=== PATIENT | female | born 1945 | race Caucasian/White ===

== ENCOUNTER 2016-10-17 11:22 | Inpatient (IN) | payer MEDICARE, MEDICAID ==
[~2016-10-17] VITALS: Ht 160 cm; Wt 82.5 kg
[2016-10-17] MEDS: NICOTINE 21MG/24HR 1 EA TRANSDERMAL TD SCH (09:00)
[~2016-10-17 11:22] MED LIST: ALBU83IN INH; ASPI81TA85 PO; BISO5TAB2 PO; CALCCHW19 PO; DOCU100T8 PO; EFFE150C; ESTR1TAB; FLEXERIL; KLON1TAB PO; LIPI10TA PO; LISI10TA4; MULTLIQ7 PO; NORT50CA PO; OMEP40CA2 PO; POTA10CA2; PROBCAP4 PO; PROV2.5T; SERO50TA PO; SYNT137T PO; TRAZ50TA; TYLE650T30 PO; VENL25TA; VITA500T53 PO; ZYPR5TAB
[2016-10-17 12:26] LABS: MEAN CORPUSCULAR HEMOGLOBIN 31.1 pg (27.0-33.0); MEAN CORPUSCULAR HGB CONC 32.2 g/dl (32.0-36.5); MEAN CORPUSCULAR VOLUME 96.6 fl (80.0-96.0); RED CELL DISTRIBUTION WIDTH 15.5 % (11.5-14.5); WHITE BLOOD COUNT 13.6 K/mm3 (4.0-10.0)
[2016-10-17 12:56] LABS: ALBUMIN 3.7 GM/DL (3.2-5.2); ALBUMIN/GLOBULIN RATIO 1.09 (1.00-1.93); ALKALINE PHOSPHATASE 96 U/L (45-117); ALT/SGPT 50 U/L (12-78); ANION GAP 11 MEQ/L (8-16); AST/SGOT 21 U/L (15-37); BILIRUBIN,DIRECT 0.3 MG/DL (0.0-0.2); BILIRUBIN,TOTAL 0.7 MG/DL (0.2-1.0); BLOOD UREA NITROGEN 20 MG/DL (7-18); CALCIUM LEVEL 8.9 MG/DL (8.8-10.2); CARBON DIOXIDE LEVEL 29 MEQ/L (21-32); CHLORIDE LEVEL 99 MEQ/L (98-107); CREATININE FOR GFR 1.03 MG/DL (0.55-1.02); GLOMERULAR FILTRATION RATE 56.1 (>39); GLUCOSE, FASTING 120 MG/DL (83-110); POTASSIUM SERUM 3.6 MEQ/L (3.5-5.1); SODIUM LEVEL 139 MEQ/L (136-145); TOTAL PROTEIN 7.1 GM/DL (6.4-8.2)
[2016-10-17] MEDS ORDERED: ADV250INH INH (16:59)
[2016-10-17] MEDS ORDERED: ASPI1TAB PO (16:59)
[2016-10-17] MEDS ORDERED: NORT75CA2 PO (16:59)
[2016-10-17] MEDS ORDERED: MAPA650T PO (16:59)
[2016-10-17] MEDS ORDERED: PRED10TA PO (16:59)
[2016-10-17] MEDS ORDERED: LOPE2TAB3 PO (16:59)
[2016-10-17] MEDS ORDERED: BISO5TAB2 PO (16:59)
[2016-10-17] MEDS ORDERED: BACITAB3 PO (16:59)
[2016-10-17] MEDS ORDERED: CLON0.5T PO (16:59)
[2016-10-17] MEDS ORDERED: FURO40TA2 PO (16:59)
[2016-10-17] MEDS ORDERED: BRIN1TAB PO (16:59)
[2016-10-17] MEDS ORDERED: VITA500T53 PO (16:59)
[2016-10-17] MEDS ORDERED: IPRASOL4 INH (16:59)
[2016-10-17] MEDS ORDERED: QUET5TAB PO (16:59)
[2016-10-17] MEDS ORDERED: POTA10CA PO (16:59)
[2016-10-17] MEDS ORDERED: [UNRECOGNIZED DRUG - CODE] PO (16:59)
[2016-10-17] MEDS ORDERED: FLON1SPR (16:59)
[2016-10-17] MEDS ORDERED: COLA100C PO (16:59)
[2016-10-17] MEDS ORDERED: CALC500C16 PO (16:59)
[2016-10-17] MEDS ORDERED: VALS1TAB49 PO (16:59)
[2016-10-17] MEDS ORDERED: ARTI99.0 OU (16:59)
[2016-10-17] MEDS ORDERED: SIMV20TA2 PO (16:59)
[2016-10-17] MEDS ORDERED: LEVO125T3 PO (16:59)
[2016-10-17] MEDS ORDERED: OMEP20CA3 PO (16:59)
[2016-10-17] MEDS ORDERED: TUSSSUS2 PO (16:59)
[2016-10-17 17:52] LABS: AMPHETAMINES LEVEL URINE NEGATIVE (NEGATIVE); BENZODIAZEPINES URINE NEGATIVE (NEGATIVE); COCAINE METABOLITE URINE NEGATIVE (NEGATIVE); CONTROL LINE INT CTR LINE PRESENT; METHADONE URINE NEGATIVE (NEGATIVE); OPIATES URINE NEGATIVE (NEGATIVE); TRICYCLIC ANTIDEPRESS URINE POSITIVE (NEGATIVE)
--- NOTE | 2016-10-17 18:17 | EDDOCDS ---
Physician Documentation [facility] Name: Yani Schaeffer Age: 70 yrs Sex: Female : 1945 Arrival Date: 10/17/2016 Time: 11:22 Bed [facility] Private MD: Disposition: 10/17/16 15:11 Hospitalization ordered by Manny Page for Inpatient Admission. Preliminary diagnosis is Suicidal ideations - with depression. - Bed requested for Admit. - Status is Inpatient Admission. me3 - Condition is Stable. - Problem is new. - Symptoms are unchanged. Historical: - Allergies: PENICILLINS (Rash); - Home Meds: 1. oxygen 2 liters NC nightly 2. valsartan 40 mg oral tab once daily (Last dose: 10/16/2016) 3. vitamin E28-elcbr acid 500-400 mcg oral tab daily (Last dose: 10/16/2016) 4. furosemide 40 mg Oral tab 1 tab once daily (Last dose: 10/16/2016) 5. Trintellix 5 mg oral tab 1 tab once daily (Last dose: 10/16/2016) 6. nortriptyline 75 mg Oral cap 1 cap once daily (Last dose: 10/16/2016) 7. Advair Diskus 250-50 mcg/dose Inhl dsdv 1 puff 2 times per day (Last dose: 10/16/2016) 8. Colace 100 mg oral cap 2 caps once daily 9. fluticasone 50 mcg/actuation nasal spsn 1 spray once daily 10. levothyroxine 125 mcg Oral cap 1 cap once daily (Last dose: 10/16/2016) 11. omeprazole 20 mg Oral cpDR 1 cap once daily (Last dose: 10/16/2016) 12. multivitamin Oral tab 1 tablet daily (Last dose: 10/16/2016) 13. potassium chloride 20 mEq Oral TbER every other day (Last dose: 10/16/2016) 14. prednisone 10 mg Oral tab once daily (Last dose: 10/16/2016) 15. Seroquel 50 mg Oral tab 1 tab 2 times per day (Last dose: 10/16/2016) 16. simvastatin 20 mg Oral tab 1 tab once daily (Last dose: 10/16/2016) 17. Acidophilus Oral tab daily (Last dose: 10/16/2016) 18. Tylenol 325 mg Oral tab 2 tabs bid (Last dose: 10/16/2016) 19. aspirin 81 mg Oral tab 0.5 tabs once daily (Last dose: 10/16/2016) 20. bisoprolol-hydrochlorothiazide 5-6.25 mg oral tab 0.5 tab once daily (Last dose: 10/16/2016) 21. Calci-Chew 500 mg calcium (1,250 mg) Oral chew daily (Last dose: 10/16/2016) 22. clonazepam 0.5 mg Oral tab 1 tab 2 times per day (Last dose: 10/16/2016) - PMHx: COPD; Anxiety; Depression; GERD; hyperlipidemia; Hypertension; Hypothyroidism; - PSHx: Knee Arthroplasty, Left; Knee Arthroplasty, Right; - Social history: No barriers to communication noted, The patient speaks fluent Kazakh, Smoking status: Patient uses tobacco products, current every day smoker. - Family history: Not pertinent. - : The pt / caregiver states he / she is not on anticoagulants. Home medication list is obtained from the facility MAR. - Exposure Risk Screening:: None identified. Vital Signs: 10/17 11:53 BP 144 / 79; Pulse 97; Resp 20; Temp 97.7(O); Pulse Ox 93% ; Pain 0/10; jlf 18:14 BP 137 / 67; Pulse 93; Resp 20; Temp 93; Pulse Ox 90% ; me3 MDM: 11:33 Consult PFS/PSA/Sales Donor Recruitment Representative ordered. ml 11:33 Consult PFS/PSA/Sales Donor Recruitment Representative: Patient's case requires discussion with on-call ml Psychiatrist ordered. 11:33 PSA/PFS to call Nursing Neonatal Specialist, to enter patient data on [place] Safe Act if patient ml involuntarily admitted or transferred for SI or HI ordered. 11:33 Confirm accurate psychiatric medication list and times of last dosage ordered. ml 11:33 Detain Pt Until Medically/PFS Cleared ordered. ml 11:34 Acetaminophen Level Ordered. EDMS 11:34 Basic Metabolic Profile Ordered. EDMS 11:34 Complete Blood Count Ordered. EDMS 11:34 Drug Eval Toxicology ED Only Ordered. EDMS 11:34 Ethyl Alcohol (ethanol) Ordered. EDMS 11:34 Liver Profile Ordered. EDMS 11:34 Salicylate Level Ordered. EDMS 11:34 Thyroid Stimulating Hormone Ordered. EDMS 12:23 REGULAR DIET PLASTIC LAGUNAS+DIET ordered. EDMS 12:56 Consult PFS/PSA/Sales Donor Recruitment Representative complete. ca 12:57 Consult PFS/PSA/Sales Donor Recruitment Representative: Patient's case requires discussion with on-call ca Psychiatrist complete. 12:57 PSA/PFS to call Nursing Neonatal Specialist, to enter patient data [place] Safe [place] if patient ca involuntarily admitted or transferred for SI or HI complete. 14:18 Admit to [facility]: ordered. EDMS 15:21 Acetaminophen Level Reviewed. ml 15:21 Basic Metabolic Profile Reviewed. ml 15:21 Complete Blood Count Reviewed. ml 15:21 Liver Profile Reviewed. ml 15:21 Salicylate Level Reviewed. ml 15:21 Ethyl Alcohol (ethanol) Reviewed. ml 15:21 Thyroid Stimulating Hormone Reviewed. ml 16:46 REGULAR DIET PLASTIC LAGUNAS+DIET ordered. EDMS 17:13 Financial registration complete. zo 17:14 [facility] Payment Agreement was scanned into [employer] and attached to record. zo 17:33 REGULAR DIET PLASTIC LAGUNAS+DIET ordered. EDMS 17:55 [facility] Legal paperwork was scanned into [employer] and attached to record. ml4 18:09 Urinalysis Ordered. EDMS Signatures: Dispatcher [employer] EDNH Luisa Egan MD MD ml Gregg, Anabel, PSA PSA ca Kamilla Jolly,PLANT BIOLOGY PROFESSOR PLANT BIOLOGY PROFESSOR me3 Jazmin Marcial, PSA PSA ml4 Claudine Pinedo Jessica, RN RN jjr The chart was reviewed and I authenticate all verbal orders and agree with the evaluation and treatment provided.Attachments: 17:14 [facility] – [place], [place] Payment Agreement zo MTDD
--- NOTE | 2016-10-17 18:17 | EDDOCDS ---
Nurse's Notes [facility] Name: Yani Schaeffer Age: 70 yrs Sex: Female : 1945 Arrival Date: 10/17/2016 Time: 11:22 Bed [facility] Private MD: Diagnosis: Suicidal ideations-with depression Presentation: 10/17 11:28 Presenting complaint: EMS states: resident at [facility] in [place], refusing jjr medications this morning per EMS pt stating she wants to , FSBS 157. Mental Health Triage Level: Level 1- Pt displays no suicidal or homicidal ideations and does not appear to be a danger to self or others. Adult Sepsis Screening: The patient does not have new or worsening altered mentation. Patient's respiratory rate is less than 22. Systolic blood pressure is greater than 100. Patient has a qSOFA score of 0- Negative Sepsis Screen. Suicide/Homicide risk assessment- Patient denies SI and HI but presents with another emotional, behavioral or other mental health complaint. Status: Patient is not a clinical services manager or dependent. Transition of care: patient was received from [facility]. 11:28 Acuity: DANIKA Level 3 jjr 11:28 Method Of Arrival: Ambulance jjr Triage Assessment: 11:42 General: Appears in no apparent distress, well nourished, well groomed, Behavior is jjr cooperative, flat. Respiratory: Airway is patent Respiratory effort is even, unlabored, Respiratory pattern is regular. Derm: Skin is pink, warm & dry. 16:48 Pain: Denies pain. me3 Historical: - Allergies: PENICILLINS (Rash); - Home Meds: 1. oxygen 2 liters NC nightly 2. valsartan 40 mg oral tab once daily (Last dose: 10/16/2016) 3. vitamin D07-nzend acid 500-400 mcg oral tab daily (Last dose: 10/16/2016) 4. furosemide 40 mg Oral tab 1 tab once daily (Last dose: 10/16/2016) 5. Trintellix 5 mg oral tab 1 tab once daily (Last dose: 10/16/2016) 6. nortriptyline 75 mg Oral cap 1 cap once daily (Last dose: 10/16/2016) 7. Advair Diskus 250-50 mcg/dose Inhl dsdv 1 puff 2 times per day (Last dose: 10/16/2016) 8. Colace 100 mg oral cap 2 caps once daily 9. fluticasone 50 mcg/actuation nasal spsn 1 spray once daily 10. levothyroxine 125 mcg Oral cap 1 cap once daily (Last dose: 10/16/2016) 11. omeprazole 20 mg Oral cpDR 1 cap once daily (Last dose: 10/16/2016) 12. multivitamin Oral tab 1 tablet daily (Last dose: 10/16/2016) 13. potassium chloride 20 mEq Oral TbER every other day (Last dose: 10/16/2016) 14. prednisone 10 mg Oral tab once daily (Last dose: 10/16/2016) 15. Seroquel 50 mg Oral tab 1 tab 2 times per day (Last dose: 10/16/2016) 16. simvastatin 20 mg Oral tab 1 tab once daily (Last dose: 10/16/2016) 17. Acidophilus Oral tab daily (Last dose: 10/16/2016) 18. Tylenol 325 mg Oral tab 2 tabs bid (Last dose: 10/16/2016) 19. aspirin 81 mg Oral tab 0.5 tabs once daily (Last dose: 10/16/2016) 20. bisoprolol-hydrochlorothiazide 5-6.25 mg oral tab 0.5 tab once daily (Last dose: 10/16/2016) 21. Calci-Chew 500 mg calcium (1,250 mg) Oral chew daily (Last dose: 10/16/2016) 22. clonazepam 0.5 mg Oral tab 1 tab 2 times per day (Last dose: 10/16/2016) - PMHx: COPD; Anxiety; Depression; GERD; hyperlipidemia; Hypertension; Hypothyroidism; - PSHx: Knee Arthroplasty, Left; Knee Arthroplasty, Right; - Social history: No barriers to communication noted, The patient speaks fluent Hungarian, Smoking status: Patient uses tobacco products, current every day smoker. - Family history: Not pertinent. - : The pt / caregiver states he / she is not on anticoagulants. Home medication list is obtained from the facility NOV. - Exposure Risk Screening:: None identified. Screenin:46 Screening information is obtained from the patient. Fall risk: At risk due to age. me3 Assistance ADL's: requires no assistance with activities of daily living. Abuse/DV Screen: The patient / caregiver reports he/she is: not in a situation that causes fear, pain or injury. Nutritional screening: No deficits noted. home support is adequate. 12:55 Advance Directives: Currently, there is a health care proxy, Yamel Mendoza [phone].me3 Assessment: 12:12 General: Appears in no apparent distress, comfortable, Behavior is cooperative, me3 pleasant. Respiratory: No deficits noted. Airway is patent Respiratory effort is even, unlabored. Derm: small scabbed area noted to right little toe, pt states it's from her shoe runbbng. 13:08 General: Appears in no apparent distress, comfortable, Behavior is cooperative, quiet. me3 General: pt is refusing to eat her lunch. Respiratory: Airway is patent Respiratory effort is even, unlabored. 14:21 General: Appears in no apparent distress, comfortable, Behavior is quiet. Respiratory: me3 No deficits noted. Airway is patent Respiratory effort is even, unlabored. 15:13 General: Appears in no apparent distress, comfortable, Behavior is cooperative, me3 pleasant. General: Appears. Respiratory: No deficits noted. Airway is patent Respiratory effort is even, unlabored. 16:15 General: Appears in no apparent distress, comfortable, Behavior is cooperative, flat. me3 Respiratory: No deficits noted. Airway is patent Respiratory effort is even, unlabored. Derm: Skin is pink, warm & dry. 17:14 General: Appears in no apparent distress, comfortable, Behavior is cooperative, flat. me3 Respiratory: Airway is patent Respiratory effort is even, unlabored. Derm: Skin is pink, warm & dry. 18:13 General: Appears in no apparent distress, comfortable, Behavior is cooperative, flat. me3 Respiratory: Airway is patent Respiratory effort is even, unlabored. Derm: Skin is pink, warm & dry. Mental Health Eval: 12:40 Mental health consult is initiated at 12:40. Status: The patient is not a ca clinical services manager or dependent. 12:57 [facility] Behavioral Health: The patient is not an established patient of [facility] Behavioral ks Health. Referral Information: Evaluation referral is generated by EMS. The patient was referred for evaluation because Staff at assisted living called ambulance because pt stated she wants to and is refusing her medications. Subjective: The patients chief complaint is Pt states "I just want to ." Appears quite depressed, lethargic, poor eye contact. States nothing can be done to help her. States she has not been eating and having great difficulty sleeping lately. Pt unable or unwilling to further elaborate on her stressors. Delusions are denied. Patient's mood is depressed, hopeless, Hallucinations are denied. Pt resides in assisted [facility] in [facility] She says she has no family support or friends. Pt refused to take her medications this morning and it is unclear when she stopped taking them. Pt is somewhat difficult to interview because she is very withdrawn, soft speech, continues to state "I'm just depressed." Pt admits to suicidal thoughts, no plan stated. Unclear how long she has had SI. Denies A/VH, ETOH, drugs, HI. Does not know the name of her psychiatrist or when she last was seen. Denies having counselor. Sees Dr Jean Baptiste for medical. Mental Health history: depression, sleep disturbance. 13:31 Mental Health history: Mental Health Admissions: 12/2009 at [facility] for depression, SI ca Current Outpatient Mental Health Services: Psychiatrist / Agency: Pt does not know name of current psychiatrist. Per medical record, pt saw Dr Yoder in the past.. Current living environment is Family / Home Support: unknown at this time The patient currently lives in own apt in an assisted living community . The patient is . Patient presents to Emergency Department with the following symptoms within the past 2 weeks: anxiety, depressed mood, feelings of helplessness/hopelessness, non-compliance, sleep disturbance - insomnia, suicidal ideation with no plan. Substance abuse: Pt denies. Mental status exam: Patients appearance is disheveled Patient's behavior is minimally responsive Speech is mumbled. slow. Affect is flat. Mood is depressed. Hallucinations are denied. Appetite is poor. Memory is fair. Energy level is lethargic. Content of thought is Depressive Thought process is intact. Cognitive level is oriented to person, place, time and situation Patient's insight is poor. Judgement is poor. Rapport with interviewer is pt is withdrawn. Suicidal Ideation is present with no specific plan. Homicidal ideation is denied. Disposition:. DSM-V Differential Diagnosis: Unspecified Depressive Disorder (F32.9). Vital Signs: 11:53 BP 144 / 79; Pulse 97; Resp 20; Temp 97.7(O); Pulse Ox 93% ; Pain 0/10; jlf 18:14 BP 137 / 67; Pulse 93; Resp 20; Temp 93; Pulse Ox 90% ; me3 Vitals: 11:43 Log In Time N/A - ambulance arrival. jr ED Course: 11:23 Patient visited by Oriana Gutiérrez, Reed Or Wind Instrument Tuner. deg 11:23 Patient moved to [facility] deg 11:24 Patient moved to [facility] deg 11:33 Triage Initiated jjr 11:43 Patient visited by Ana Diaz, GONZÁLEZ. jjr 11:52 Kamilla Jolly LPN is Primary Nurse. me3 11:55 Patient visited by Parul Cox PCA. jlf 12:02 Luisa Egan MD is Attending Physician. ml 12:02 Patient visited by Luisa Egan MD. ml 12:13 The patient / caregiver is instructed regarding the plan of care and ED course. Patient me3 has correct armband on for positive identification. Placed in psych safe attire. Bed in low position. Security observing. Door closed. Noise minimized. Warm blanket given. Pillow given. 12:28 Patient visited by Kevon Guerin Security Aide. pjf 12:44 Patient visited by Kevon Guerin Security Aide. pjf 12:47 No IV's were initiated during this patient's visit. No procedures done that require me3 assistance. 13:00 Patient visited by Kamilla Jolly LPN. me3 13:15 Psych Safety Check: Location: Psych Room. Visual Assessment: Cooperative. pjf 13:32 Patient visited by Kevon Guerin Security Aide. pjf 13:47 Patient visited by Kevon Guerin Security Aide. pjf 13:58 Patient visited by Kevon Guerin Security Aide. pjf 14:12 Patient visited by Kevon Guerin Security Aide. pjf 14:39 Patient visited by Kamilla Jolly LPN. me3 14:46 Patient visited by Kevon Guerin Security Aide. pjf 15:00 Patient visited by Kevon Guerin Security Aide. pjf 15:11 Manny Page MD is Hospitalizing Provider. ml 15:37 Patient visited by Kevon Guerin Security Aide. pjf 15:59 Patient visited by Kevon Guerin Security Aide. pjf 17:06 Patient visited by Kevon Guerin Security Aide. pjf 17:14 [facility] Payment Agreement was scanned into [employer] and attached to record. zo 17:37 Patient visited by Kevon Guerin Security Aide. pjf 17:53 Patient visited by Kevon Guerin Security Aide. pjf 17:55 E Legal paperwork was scanned into [employer] and attached to record. ml4 18:08 Patient visited by Kevon Guerin Security Aide. pjf 18:12 Urinalysis Sent. me3 Attachments: 17:55 [facility] Legal paperwork ml4 Order Results: Lab Order: Acetaminophen Level; SPEC'M 10/17/16 12:05 Test: ACETAMINOPHEN LEVEL; Value: < 2.0; Range: 10.0-30.0; Abnormal: Below low normal; Units: UG/ML; Status: F Lab Order: Basic Metabolic Profile; SPEC'M 10/17/16 12:05 Test: GLUCOSE, FASTING; Value: 120; Range: 83-110; Abnormal: Above high normal; Units: MG/DL; Status: F Test: BLOOD UREA NITROGEN; Value: 20; Range: 7-18; Abnormal: Above high normal; Units: MG/DL; Status: F Test: CREATININE FOR GFR; Value: 1.03; Range: 0.55-1.02; Abnormal: Above high normal; Units: MG/DL; Status: F Test: GLOMERULAR FILTRATION RATE; Value: 56.1; Range: >39; Status: F Test: SODIUM LEVEL; Value: 139; Range: 136-145; Units: MEQ/L; Status: F Test: POTASSIUM SERUM; Value: 3.6; Range: 3.5-5.1; Units: MEQ/L; Status: F Test: CHLORIDE LEVEL; Value: 99; Range: 98-107; Units: MEQ/L; Status: F Test: CARBON DIOXIDE LEVEL; Value: 29; Range: 21-32; Units: MEQ/L; Status: F Test: ANION GAP; Value: 11; Range: 8-16; Units: MEQ/L; Status: F Test: CALCIUM LEVEL; Value: 8.9; Range: 8.8-10.2; Units: MG/DL; Status: F Test Note: ; Units are mL/min/1.73 m2 Chronic Kidney Disease Staging per NKF: Stage I & II GFR >=60 Normal to Mildly Decreased Stage III GFR 30-59 Moderately Decreased Stage IV GFR 15-29 Severely Decreased Stage V GFR <15 Very Little GFR Left ESRD GFR <15 on MEDICAL ACCOUNTING CLERK Lab Order: Complete Blood Count; SPEC10/17/16 12:05 Test: WHITE BLOOD COUNT; Value: 13.6; Range: 4.0-10.0; Abnormal: Above high normal; Units: K/mm3; Status: F Test: RED BLOOD COUNT; Value: 4.16; Range: 4.00-5.40; Units: M/mm3; Status: F Test: HEMOGLOBIN; Value: 12.9; Range: 12.0-16.0; Units: g/dl; Status: F Test: HEMATOCRIT; Value: 40.2; Range: 36.0-47.0; Units: %; Status: F Test: MEAN CORPUSCULAR VOLUME; Value: 96.6; Range: 80.0-96.0; Abnormal: Above high normal; Units: fl; Status: F Test: MEAN CORPUSCULAR HEMOGLOBIN; Value: 31.1; Range: 27.0-33.0; Units: pg; Status: F Test: MEAN CORPUSCULAR HGB CONC; Value: 32.2; Range: 32.0-36.5; Units: g/dl; Status: F Test: RED CELL DISTRIBUTION WIDTH; Value: 15.5; Range: 11.5-14.5; Abnormal: Above high normal; Units: %; Status: F Test: PLATELET COUNT, AUTOMATED; Value: 325; Range: 150-450; Units: k/mm3; Status: F Lab Order: Drug Eval Toxicology ED Only; SPEC10/17/16 17:22 Test: AMPHETAMINES LEVEL URINE; Value: NEGATIVE; Range: NEGATIVE; Status: F Test: BARBITURATES URINE; Value: NEGATIVE; Range: NEGATIVE; Status: F Test: BENZODIAZEPINES URINE; Value: NEGATIVE; Range: NEGATIVE; Status: F Test: CANNABINOIDS URINE; Value: NEGATIVE; Range: NEGATIVE; Status: F Test: COCAINE METABOLITE URINE; Value: NEGATIVE; Range: NEGATIVE; Status: F Test: METHADONE URINE; Value: NEGATIVE; Range: NEGATIVE; Status: F Test: OPIATES URINE; Value: NEGATIVE; Range: NEGATIVE; Status: F Test: TRICYCLIC ANTIDEPRESS URINE; Value: POSITIVE; Range: NEGATIVE; Abnormal: Above high normal; Status: F Test Note: ; ALL PRESUMPTIVE POSITIVE FINDINGS ARE UNCONFIRMED NORMAL VALUES THRESHOLD IN NG/ML AMPHETAMINES 1000 METHAMPHETAMINES 1000 BARBITURATES 300 BENZODIAZEPINES 300 CANNABINOIDS (THC) 50 COCAINE METABOLITE 300 METHADONE 300 OPIATES 300 PHENCYCLIDINE 25 TRICYCLIC ANTIDEPRESSANTS 1000 RESULTS ARE FOR MEDICAL PURPOSES ONLY. ALL URINE SPECIMENS WILL BE SAVED FOR 3 DAYS. IF CONFIRMATION OF A PRESUMPTIVE POSTIVE SCREEN RESULT IS DESIRED, CALL CHEMISTRY ([phone]) AND REQUEST URINE TO BE SENT TO REFERENCE LAB. FOR A LIST OF CLOSELY RELATED COMPOUNDS PLEASE CALL THE LAB. Lab Order: Ethyl Alcohol (ethanol); SPEC'M 10/17/16 12:05 Test: ETHYL ALCOHOL (ETHANOL); Value: < 0.003; Range: 0.000-0.010; Units: %; Status: F Lab Order: Liver Profile; SPEC'M 10/17/16 12:05 Test: AST/SGOT; Value: 21; Range: 15-37; Units: U/L; Status: F Test: ALT/SGPT; Value: 50; Range: 12-78; Units: U/L; Status: F Test: ALKALINE PHOSPHATASE; Value: 96; Range: 45-117; Units: U/L; Status: F Test: BILIRUBIN,TOTAL; Value: 0.7; Range: 0.2-1.0; Units: MG/DL; Status: F Test: BILIRUBIN,DIRECT; Value: 0.3; Range: 0.0-0.2; Abnormal: Above high normal; Units: MG/DL; Status: F Test: TOTAL PROTEIN; Value: 7.1; Range: 6.4-8.2; Units: GM/DL; Status: F Test: ALBUMIN; Value: 3.7; Range: 3.2-5.2; Units: GM/DL; Status: F Test: ALBUMIN/GLOBULIN RATIO; Value: 1.09; Range: 1.00-1.93; Status: F Lab Order: Salicylate Level; SPEC' 10/17/16 12:05 Test: SALICYLATE LEVEL; Value: < 1.7; Range: 5.0-30.0; Abnormal: Below low normal; Units: MG/DL; Status: F Lab Order: Thyroid Stimulating Hormone; SPEC'M 10/17/16 12:05 Test: THYROID STIMULATING HORMONE; Value: 2.280; Range: 0.358-3.740; Units: uIU/ML; Status: F Outcome: 14:22 Property removed, inventory done, secured in belongings bag- placed in locked locker. me3 15:11 Decision to Hospitalize by Provider. ml 17:15 No special radiology studies were completed. me3 18:13 Discharge Assessment: patient administered narcotics - no. The following High Risk me3 Discharge criteria are identified: None. Admitted to Psych accompanied by tech, via wheelchair, with chart. Condition: stable. 18:16 Patient left the ED. me3 Signatures: Luisa Egan MD MD ml Oriana Gutiérrez, Reed Or Wind Instrument Tuner Unit deg Anabel Escobedo, PSA PSA ca Kevon Guerin, Security Aide Securpjf Kamilla Jolly,PROTOZOOLOGIST PROTOZOOLOGIST me3 Jazmin Marcial, PSA PSA ml4 Claudine Pinedo Jessica, RN RN Parul Virgen, FINAL INSPECTOR SHUTTLE FINAL INSPECTOR SHUTTLE jlf MTDD
[2016-10-17 18:35] VITALS: BP 123/64
[2016-10-17] MEDS ORDERED: POLYVINYL ALCOHOL OPHTH SOLN 15 ML(LIQUITEARS) OU PRN (20:15)
[2016-10-17] MEDS ORDERED: ACETAMINOPHEN TAB 650MG DOSE (2X325MG) PO PRN (20:15)
[2016-10-17] MEDS ORDERED: QUEtiapine FUMARATE 50 MG TAB PO PRN (20:15)
[2016-10-17] MEDS ORDERED: traZODone 50 MG TAB PO PRN (20:15)
[2016-10-17] MEDS ORDERED: FLUTICASONE PROP 0.05% NASAL SPRAY 16 GM (FLONASE) PRN (20:15)
[2016-10-17] MEDS ORDERED: IPRATROPIUM 0.5MG/ALBUTEROL 2.5MG INH SOL UD 3ML (DUONEB)(J7620) NEB PRN (20:15)
[2016-10-17] MEDS ORDERED: clonazePAM 0.5 MG TAB PO PRN (20:15)
[2016-10-17] MEDS ORDERED: MAALOX 30 ML SUSP *UDC PO PRN (20:15)
[2016-10-17] MEDS ORDERED: MOM 30ML SUSPENSION UDC PO PRN (20:15)
[2016-10-17] MEDS: DOCUSATE SODIUM 100 MG CAP PO SCH (23:06)
[2016-10-17] MEDS: SIMVASTATIN 20 MG TAB PO SCH (23:06)
[2016-10-17] MEDS: NORTRIPTYLINE 25 MG CAP PO SCH (23:06)
[2016-10-17] MEDS: ADVAIR DISKUS 250/50 INH PWD INH SCH (23:06)
[2016-10-18 06:30] VITALS: BP 114/57
[2016-10-18] MEDS: LEVOTHYROXINE 0.125 MG TAB (125 MCG) PO SCH (06:51)
[2016-10-18] MEDS ORDERED: POTASSIUM CHLORIDE 10 MEQ SR TABLET PO SCH (09:00)
[2016-10-18] MEDS: NICOTINE 21MG/24HR 1 EA TRANSDERMAL TD SCH (09:00)
[2016-10-18] MEDS ORDERED: HYDROCHLOROthiazide 6.25MG PER 1/4TAB PO SCH (09:00)
[2016-10-18] MEDS: ADVAIR DISKUS 250/50 INH PWD INH SCH ×2 (09:36→21:34)
[2016-10-18] MEDS: clonazePAM 0.5 MG TAB PO SCH (09:37)
[2016-10-18] MEDS: ASPIRIN 81 MG CHEW TABLET PO SCH (09:39)
[2016-10-18] MEDS: OMEPRAZOLE 20 MG CAP PO SCH (09:39)
[2016-10-18] MEDS: VALSARTAN 40MG TABLET (DIOVAN) PO SCH (09:39)
[2016-10-18] MEDS: MULTIVITAMINS/MINERALS THERAP 1 TAB PO SCH (09:40)
[2016-10-18] MEDS: FUROSEMIDE 40 MG TAB PO SCH (09:40)
[2016-10-18] MEDS: CALCIUM CARBONATE 500 MG CHEW U/D PO SCH (09:40)
[2016-10-18] MEDS: LACTOBACILLUS ACIDOPHILUS CAP (BACID) PO SCH (09:42)
[2016-10-18] MEDS: CYANOCOBALAMIN 500 MCG TAB PO SCH (09:42)
[2016-10-18] MEDS: BISOPROLOL FUM 2.5 MG PER 1/2TAB PO SCH (09:42)
--- NOTE | 2016-10-18 12:32 | HPEPDOC ---
Medical History and Physical Date of Admission Oct 17, 2016 at 18:35 History and Physical PCP: Dr Jean Baptiste ATTENDING: Dr. Elías Saregnt HPI: 70yoF admitted to [facility] for MDD, being medically examined today. Pt states "everything is wrong". Also states "All of those questions are No". Pt is a poor historian at this time. Pt is reporting loose stools since she arrived. Also states she has had some reduced urination but denies urinary frequency, urgency, dysuria or hematuria. Denies any fevers, chills, weakness, fatigue, WARD, CP, SOB, cough, palpitations, abdominal pain, N/V/D. PMHx: COPD- O2 2 L at night. H/O Abn Pet scan Hypermetabolic foci Lung 11/24, H/O Lung Ca- Pt opted for no treatment. Has seen Dr Long. Hypertension Allergic rhinitis Hypothyroid GERD Hyperlipidemia Anxiety Depression Reduced hearing Edentulous Unsteady gait-walker PSHX: Left knee arthroplasty Right knee arthroplasty SOCHX: Resides in: Resident at [facility] Marital Status: Kids: 5 Employment: Homemaker Tobacco use: History of smoking 50 years per patient. She does not know how much she currently smokes. ETOH: Denies Illicit Drugs: Denies IV Drug Use: Denies Tattoos done unprofessionally: Denies FAMHX: Mother: , lung cancer Father: , [place] at 51 Siblings: 3 sisters Alive, unknown Children: 4 Alive, well. One adopted child , MVA. Unexpected deaths due to medical reasons: None. ROS: As noted in HPI, otherwise 11pt ROS of systems reviewed and unremarkable PE: GEN: 70yoF, appears stated age. Alert and oriented x 3. Anxious throughout exam. HEENT: Normocephalic, atraumatic. Pupils are equal, round, and reactive to light. Extraocular movements are intact. No nystagmus appreciated. Sclera are nonicteric. Conjunctiva without injection. Nose midline. Nasal turbinates without bogginess. Hearing aids bilaterally , EACs both patent BL. TMs both visualized and sutton with good cone of light, no bulging or erythema. No facial asymmetry. Moist mucous membranes. Upper and lower dentures. Pharynx pink and moist, no cobblestoning. Neck supple, trachea midline. No lymphadenopathy or thyromegaly appreciated. CHEST: Regular rate and rhythm, +S1, +S2 LUNGS: Clear to auscultation bilaterally. No wheezes, rales, or rhonchi. Breathing appears symmetric and easy. Patient is speaking in full sentences. No accessory muscle use. ABD: Round, soft, non-tender, non-distended. +Bowel sounds throughout. No rebound or guarding. No costovertebral angle tenderness. EXT: Pulses 2+ bilaterally dorsalis pedis and radial. No lower extremity edema appreciated. SKIN: [place], dry, warm. Capillary refill <2sec. No rashes. NEURO: Alert and oriented x 3. Cranial nerves III-XII are intact. No focal deficits appreciated. EKG: pending. A&P: 70yoF admitted to [facility] for MDD 1. Psych. Plan per Psychiatry. Obtain baseline EKG to assure the safety of psychiatric medications as they can prolong the QT interval. 2. Nicotine dependence. Patch available. 3. Unsteady gait. Patient states she uses a walker for ambulation. Request physical therapy for evaluation and further recommendations. 4. Follow up with PCP on discharge. Dr Jean Baptiste. 5. Loose stools. Check GI panel. 6. Reduced urination. Check UA/urine culture. Recheck CBC and CMP. 7. COPD. patient uses O2 2 L at night. Continue Advair 250/50 one puff twice a day, DuoNeb every 6 hours and every 2 hours as needed. 8. Hypertension. Continue aspirin 81 mg daily, Zebeta 2.5 mg daily, hydrochlorothiazide 3.125 mg daily, Lasix 40 mg daily, potassium 10 meq daily, and Diovan 40 mg daily. 9. Hypothyroid. Continue supplement. 10. GERD. Continue Prilosec 20 mg daily. 11. Hyperlipidemia. Continue Zocor 20 mg daily. 12. Staff member present throughout examination, Arabella CLAUDIO. Vital Signs Vital Signs Label Value Date Time Patient Temperature 96.7 degrees F 10/18/16 0630 Temperature Source Tympanic 10/18/16 0630 Pulse 97 10/18/16 0630 Respiratory Rate 18 bpm 10/18/16 0630 Blood Pressure Assessment 114/57 (76) 10/18/16 0630 Blood Pressure Assessment 186/89 10/18/16 0939 Laboratory Data Labs 24H Laboratory Tests 2 10/17/16 17:22: Urine Amorphous Sediment SMALLH, Urine Amphetamine Level NEGATIVE, Urine Benzodiazepines Screen NEGATIVE, Urine Cannabinoids NEGATIVE, Urine Cocaine Metabolite NEGATIVE, Urine Opiates Screen NEGATIVE, Urine Appearance HAZY, Urine Color YELLOW, Urine pH 5.0, Urine Specific [place] 1.018, Urine Protein NEGATIVE, Urine Glucose (UA) NEGATIVE, Urine Ketones TRACEH, Urine Urobilinogen 2.0H, Urine Bilirubin NEGATIVE, Urine Leukocyte Esterase 2+H, Urine Bacteria ( Auto) 3+H, Urine Barbiturates, Qualitative NEGATIVE, Urine Blood NEGATIVE, Urine Calcium Carbonate Cryst(Auto) , Urine Calcium Oxalate Cryst (Auto) , Urine Calcium Phosphate [place] (Auto) , Urine Cellular Casts , Urine Cystine Crystals , Urine Granular Casts (Auto) , Urine Hyaline Casts (Auto) 1, Urine Leucine Crystals , Urine Methadone Screen NEGATIVE, Urine Mucus (Auto) SMALL, Urine Nitrite NEGATIVE, Urine Oval Fat Bodies (Auto) , Urine RBC (Auto) 3, Urine Renal Epithelial Cells , Urine Sperm (Auto) , Urine Squamous Epithelial Cells 6, Urine Transitional Epithelial Cells , Urine Trichomonas (Auto) , Urine Tricyclic Antidepressants POSITIVEH, Urine Triple Phosphate Cryst (Auto) , Urine Tyrosine Crystals , Urine Uric Acid Crystals (Auto) , Urine WBC (Auto) 41H , Urine Waxy Casts (Auto) , Urine Yeast-Like Cells (Auto) Home Medications Scheduled (Flonase Allergy Relief) 50 Mcg/Act Spr 1 SPRAY NA DAILY (One-A-Day Vitacraves Chiquita) 1 Chw Chw 1 CHW PO DAILY (Bisoprolol Fumarate/[place] 5-6.25 mg) 1 Tab Tab 0.5 TAB PO DAILY Acetaminophen (Acetaminophen ER) 650 Mg Tab 650 MG PO BID Aspirin (Aspirin 81) 81 Mg Tab 40.5 MG PO DAILY Calcium Carbonate (Calcium Carbonate) 500 Mg Chw 500 MG PO DAILY Clonazepam (Clonazepam) 0.5 Mg Tab 0.5 MG PO BID Cyanocobalamin (Vitamin B12) 500 Mcg Tab 500 MCG PO DAILY Docusate Sodium (Colace) 100 Mg Cap 200 MG PO QHS Furosemide (Furosemide) 40 Mg Tab 40 MG PO DAILY Lactobacillus Acidophilus (Bacid) 1 Tab Tab 1 TAB PO DAILY Levothyroxine Sodium (Synthroid) 125 Mcg Tab 125 MCG PO DAILY Nortriptyline HCl (Nortriptyline HCl) 75 Mg Cap 75 MG PO QHS Omeprazole (Omeprazole) 20 Mg Cap 20 MG PO DAILY Potassium Chloride (Klor-Con M10) 10 Meq Tabcr 20 MEQ PO Q2D Prednisone (Prednisone) 10 Mg Tab 10 MG PO DAILY Quetiapine Fumerate (Quetiapine Fumarate) 50 Mg Tab 50 MG PO BID Salmeterol/Fluticasone (Advair Diskus 250-50 Mcg/Dose) 14 Puff/Inhaler Aerp 1 PUFF INH BID Simvastatin (Simvastatin) 20 Mg Tab 20 MG PO QHS Valsartan (Valsartan) 40 Mg Tab 40 MG PO DAILY Vortioxetine Hydrobromide (Trintellix) 5 Mg Tab 5 MG PO DAILY Scheduled PRN Albuterol/Ipratropium (Ipratropium [place]/Albut 0.5-2.5 (3) mg/3Ml) 1 Ligia Ligia 1 LIGIA INH TID PRN PRN SHORTNESS OF BREATH Artificial Tears (Artificial Tears) 1.4 % Ligia 1 DROP OU BID PRN PRN DRY EYES Chlorphenir/Hydrocod Polistir (Tussionex Pennkinetic Ext 10-8 mg/5Ml) 1 Yulisa Yulisa 5 ML PO Q12H PRN PRN COUGH Loperamide HCl (Loperamide A-D) 2 Mg Tab 2 MG PO PRN DIARRHEA Allergies Coded Allergies: Naproxen (Verified Allergy, Unknown, VIOXX, 12/16/12) Penicillins (Verified Allergy, Unknown, 12/16/12) Penicillins Cross Reactors (Verified Allergy, Unknown, 12/16/12) Shanika De Souza Oct 18, 2016 12:32
[2016-10-18] MEDS ORDERED: ACET650T2 PO (13:13)
[2016-10-18 13:14] LABS: MEAN CORPUSCULAR HEMOGLOBIN 31.2 pg (27.0-33.0); MEAN CORPUSCULAR HGB CONC 32.6 g/dl (32.0-36.5); MEAN CORPUSCULAR VOLUME 95.7 fl (80.0-96.0); RED CELL DISTRIBUTION WIDTH 15.4 % (11.5-14.5); WHITE BLOOD COUNT 11.4 K/mm3 (4.0-10.0)
[2016-10-18] MEDS: predniSONE 10 MG TAB PO SCH (13:29)
[2016-10-18 14:02] LABS: ALBUMIN 3.7 GM/DL (3.2-5.2); ALBUMIN/GLOBULIN RATIO 1.23 (1.00-1.93); BILIRUBIN,TOTAL 0.8 MG/DL (0.2-1.0); CALCIUM LEVEL 9.1 MG/DL (8.8-10.2); POTASSIUM SERUM 4.1 MEQ/L (3.5-5.1); TOTAL PROTEIN 6.7 GM/DL (6.4-8.2)
--- NOTE | 2016-10-18 16:22 | ECGEPIP ---
Stationary ECG Study [facility] Test Date: 2016-10-18 Pat Name: DEBORA FOREMAN Department: Room: [place] [address] Gender: F Manager Leasing: SIDNEY : 1945 Requested By: Shanika De Souza Order Number: [id number] Reading MD: Gisela Young Measurements Intervals [place] Rate: 85 P: 72 VA: 167 QRS: 4 QRSD: 118 T: 66 QT: 383 QTc: 458 Interpretive Statements SINUS RHYTHM POSSIBLE LEFT ATRIAL ENLARGEMENT MODERATE INTRAVENTRICULAR CONDUCTION DELAY ILBBB MODERATE ST DEPRESSION NO PRIOR Electronically Signed On 10-18-2016 16:22:09 EST by Gisela Young
--- NOTE | 2016-10-18 19:52 | HPEPDOC ---
[facility] History & Physical History and Physical DATE OF ADMISSION: Oct 17, 2016 at 18:35 CHIEF COMPLAINT: "I just like to ." HISTORY OF THE PRESENT ILLNESS: Patient is a 70-year-old female who was reportedly transported to [facility] ER by wood technologist after being called by staff at patient's independent living facility in response to patient refusing to take medications and stating that she no longer wants to live. Patient states this is her first inpatient psychiatric hospitalization and no other psychiatric hospitalizations are noted in EMR. Patient is resistant to engage with blog writer for assessment purposes and provides minimal responses. Patient is able to verify that she has been experiencing decrease in energy, reduced appetite, and reduced desire to live. Patient indicates she had also been experiencing poor sleep, notes she slept better last night. Per ER report, patient has not exhibited a new or worsening altered mental state, patient has had no plan or intent to harm herself, and she has no known history of aggression or behavioral management challenges. Also per ER report, patient has exhibited no indication of panic, irritability or agitation, hypervigilance, dissociative symptoms, or mood lability. Furthermore, patient presents with no signs of audiovisual hallucinations, urge to engage in self-injurious behavior, homicidal ideation, or delusional thinking. Patient denies recent major life event and indicates she does not know cause for recent exacerbation in symptoms of anxiety and depression. When asked describe current symptoms patient states, "I'm depressed, there are so many changes, and everything is sad." Neither patient nor ER report indicate when symptoms started, however, patient reports history of depression and anxiety. Patient informs blog writer she has multiple health conditions but declines to discuss at this time. Patient states she is independent with ADLs and denies physical pain. Patient indicates she feels she has a limited support system and, per mortgage loan coordinator, patient's daughter is her healthcare proxy. Per EMR, and per patient report, patient has been taking at [facility] the following medications: Seroquel 50 mg po BID, Klonopin 0.5 mg po BID, nortriptyline 75 mg po q hs, and Trintellix 5 mg po daily. Patient declines to comment on medication effectiveness, denies awareness of medication side effects. Line Rider unable to confirm medications with patient or in EMR, will quest medication confirmation from [facility]. PAST PSYCHIATRIC HISTORY: Patient declines to respond, denies currently participating in outpatient psychiatric treatment, no prior psychiatric hospitalizations at [facility] noted in EMR. Out Patient Treatment: None known but patient is being prescribed amitriptyline and Klonopin Suicidal/Self injurious: Patient denies none noted in EMR Psychotropic Medication History: Was taking at [facility] the following psychotropic medications: nortriptyline, trintellix, Klonopin, and Seroquel ALLERGIES: Please see below. HOME MEDICATIONS: Please see below. PAST MEDICAL/SURGICAL HISTORY: Patient volunteers no information. Per ER report and PA H&P, patient has COPD and uses O2 at night, hypertension, allergic rhinitis, hypothyroidism, GERD, hyperlipidemia, impaired hearing, edentulous, walks with unsteady gait and uses from Will walker. Surgical history includes left and right knee arthroplasty. Per EMR, chest CT on 10/23/15 indicated lung malignancy suspected FAMILY PSYCHIATRIC HISTORY: Patient denies SOCIAL HISTORY: Patient volunteers no information but per ER report she is a resident at [facility] which is located in [facility], where she is in independent living. Patient is , mother of 5 children, feels she has limited support system. Patient is a homemaker. SUBSTANCE ABUSE HISTORY: Patient has a history of smoking 50 years, denies alcohol and illicit drug use. LEGAL HISTORY: Patient denies VITAL SIGNS: See below. Elevated at B/P 186/89, P 113, R 18, Temp 96.7. Line Rider requested a recheck and B/P left arm was 115/58, B/P right arm was 118/60 with a pulse of 80. Line Rider has entered orders for vitals every 6 hours to include pulse oximetry and temperature. LABORATORY DATA: Please see below. Labs indicate elevated WBCs, RDW, BUN. Urine positive for bacteria. UDS positive for TCA on admission. 10/18/16 EKG SINUS RHYTHM POSSIBLE LEFT ATRIAL ENLARGEMENT MODERATE INTRAVENTRICULAR CONDUCTION DELAY ILBBB. MODERATE ST DEPRESSION. NO PRIOR REVIEW OF SYSTEMS: Refer to PA H&P in EMR MENTAL STATUS EXAMINATION: Patient is a 70-year-old female who is withdrawn, resistant to assessment, provides minimal information, makes limited eye contact, presents his somewhat disheveled, dressed in hospital clothing, is lethargic, appears stated age. Patient ambulates with a frontwheel walker, has unsteady gait. Speech: Is slow, repetitive, logical and coherent, of low volume Language skills are appear intact. Thought processes: Goal-directed and clear, though indicates not interested in interacting with blog writer at this time. Thought content: Appears rational, logical, requires further evaluation. Abstract reasoning, and computation: Requires further evaluation Description of associations: Intact Description of abnormal or psychotic thoughts: Denies hallucinations, delusions , preoccupation with violence, homicidal or suicidal ideation, and obsessions Judgment: Poor. Insight: Poor. Orientation to time, person, and place. Recent and remote memory: Requires further evaluation, no limitations noted at time of interaction Attention span and concentration: Limited. Language: Requires further evaluation. Fund of knowledge: Requires further evaluation. Mood: "I just want to ." Appears depressed Affect: Flat, congruent with affect. DIAGNOSES: Unspecified mood disorder, rule out major depressive disorder, rule out adjustment disorder with mixed anxiety and depressed mood, rule out depressive disorder due to general medical condition: COPD, HTN, hypothyroidism , other ASSESSMENT: Patient presents as depressed and mildly anxious, is lying on bed at time of interaction with blog writer. However, blog writer has made multiple attempts today to complete assessment on patient who was not to be found in room because she was visible on unit and attending groups. Patient does appear at time of interaction to be lethargic, withdrawn, depressed, is engageable but provides limited responses and makes it clear to blog writer she does not wish to engage for assessment purposes. Patient states to blog writer that she remains interested in dying, denies plan or intent, denies history of trying to kill self. Patient presents as oriented, logical, coherent, and is able to agree to notify staff if symptoms worsen or become unmanageable. Line Rider was informed by nursing patient has not eaten today; patient was encouraged to eat and order for I and O monitoring was entered. When blog writer inquires with patient as to why she has not eaten patient indicates, "I'm just not hungry." At one point during assessment patient complains of shortness of breath, indicates she has COPD and this is typical for her, then notes symptoms resolution. Line Rider also entered order for vitals every 6 to include pulse oximetry and temperature and nursing has been informed. Nursing has also been informed patient's labs indicate anomalies and requested patient be monitored until PA can evaluate lab results with patient. Per EMR, patient slept for 6 hours last night. Patient had been taking psychotropic medications at [facility], declines to respond to blog writer's questions in terms of medication effectiveness or side effects. Will monitor patient to evaluate medication effectiveness/need for dosing adjustments or medication changes. Will also monitor patient's response to inpatient unit and will evaluate patient's safety, resolution of suicidal ideation, and discharge readiness when appropriate. Patient informs blog writer she does not want to return to [facility], indicates she does not know where she wants to live after discharge from hospital. Patient indicates she feels safe on unit and presents with no signs of acute distress at this time. PROBLEM LIST: Passive suicidal ideation Depression Anxiety Multiple physical health challenges Limited support Limited coping skills Dissatisfaction with housing INITIAL TREATMENT PLAN: Patient was admitted on a 06.10 legal status, Complete history was obtained as able With patients permission, family and caregivers will be contacted and database will be expanded Patients medication regimen will be reviewed and changed accordingly Patient will be provided with protected environment Patient will be treated with individual, group, and milieu therapies Patient will receive supportive psych-education. Discharge planning will commence immediately Length of patients stay will be between 5-7 days Outpatient follow-up treatment will be strongly recommended. The initial treatment plan will focus initially on: depression, risk for suicide , anxiety Vitals every 6 hours to include pulse oximetry and temperature Patient is placed on I and O monitoring ESTIMATED LENGTH OF STAY: 7-10 days. TIME SPENT COUNSELING AND COORDINATING INITIAL CARE: 60 minutes. Laboratory Data 24H Labs Laboratory Tests 2 10/18/16 12:49: Blood Urea Nitrogen 20H, Creatinine 1.00, Sodium Level 142, Potassium Level 4.1 , Chloride Level 100, Carbon Dioxide Level 30, Calcium Level 9.1, Aspartate Amino Transf (AST/SGOT) 29, Alanine Aminotransferase (ALT/SGPT) 56, Alkaline Phosphatase 93, Total Bilirubin 0.8, Total Protein 6.7, Albumin 3.7, Albumin/ Globulin Ratio 1.23, Anion Gap 12, Glomerular Filtration Rate 58.0 CBC/BMP Laboratory Tests 10/18/16 12:49 Calcium Level 9.1, Aspartate Amino Transf (AST/SGOT) 29, Alanine Aminotransferase (ALT/SGPT) 56, Alkaline Phosphatase 93, Total Bilirubin 0.8, Total Protein 6.7, Albumin 3.7, Red Blood Count 4.18, Mean Corpuscular Volume 95.7, Mean Corpuscular Hemoglobin 31.2, Mean Corpuscular Hemoglobin Concent 32.6 , Red Cell Distribution Width 15.4 H Medications Scheduled (Flonase Allergy Relief) 50 Mcg/Act Spr 1 SPRAY NA DAILY (Reported) (One-A-Day Vitacraves Chiquita) 1 Chw Chw 1 CHW PO DAILY (Reported) (Bisoprolol Fumarate/[place] 5-6.25 mg) 1 Tab Tab 0.5 TAB PO DAILY (Reported) Acetaminophen (Acetaminophen ER) 650 Mg Tab 650 MG PO BID (Reported) Aspirin (Aspirin 81) 81 Mg Tab 40.5 MG PO DAILY (Reported) Calcium Carbonate (Calcium Carbonate) 500 Mg Chw 500 MG PO DAILY (Reported) Clonazepam (Clonazepam) 0.5 Mg Tab 0.5 MG PO BID (Reported) Cyanocobalamin (Vitamin B12) 500 Mcg Tab 500 MCG PO DAILY (Reported) Docusate Sodium (Colace) 100 Mg Cap 200 MG PO QHS (Reported) Furosemide (Furosemide) 40 Mg Tab 40 MG PO DAILY (Reported) Lactobacillus Acidophilus (Bacid) 1 Tab Tab 1 TAB PO DAILY (Reported) Levothyroxine Sodium (Synthroid) 125 Mcg Tab 125 MCG PO DAILY (Reported) Nortriptyline HCl (Nortriptyline HCl) 75 Mg Cap 75 MG PO QHS (Reported) Omeprazole (Omeprazole) 20 Mg Cap 20 MG PO DAILY (Reported) Potassium Chloride (Klor-Con M10) 10 Meq Tabcr 20 MEQ PO Q2D (Reported) Prednisone (Prednisone) 10 Mg Tab 10 MG PO DAILY (Reported) Quetiapine Fumerate (Quetiapine Fumarate) 50 Mg Tab 50 MG PO BID (Reported) Salmeterol/Fluticasone (Advair Diskus 250-50 Mcg/Dose) 14 Puff/Inhaler Aerp 1 PUFF INH BID (Reported) Simvastatin (Simvastatin) 20 Mg Tab 20 MG PO QHS (Reported) Valsartan (Valsartan) 40 Mg Tab 40 MG PO DAILY (Reported) Vortioxetine Hydrobromide (Trintellix) 5 Mg Tab 5 MG PO DAILY (Reported) Scheduled PRN Albuterol/Ipratropium (Ipratropium [place]/Albut 0.5-2.5 (3) mg/3Ml) 1 Pio Pio 1 PIO INH TID PRN PRN SHORTNESS OF BREATH (Reported) Artificial Tears (Artificial Tears) 1.4 % Pio 1 DROP OU BID PRN PRN DRY EYES ( Reported) Chlorphenir/Hydrocod Polistir (Tussionex Pennkinetic Ext 10-8 mg/5Ml) 1 Yulisa Yulisa 5 ML PO Q12H PRN PRN COUGH (Reported) Loperamide HCl (Loperamide A-D) 2 Mg Tab 2 MG PO PRN DIARRHEA (Reported) Allergies Coded Allergies: Naproxen (Verified Allergy, Unknown, VIOXX, 12/16/12) Penicillins (Verified Allergy, Unknown, 12/16/12) Penicillins Cross Reactors (Verified Allergy, Unknown, 12/16/12) Oriana Olmstead Oct 18, 2016 19:52
[2016-10-18] MEDS: SIMVASTATIN 20 MG TAB PO SCH (21:33)
[2016-10-18] MEDS: DOCUSATE SODIUM 100 MG CAP PO SCH (21:34)
[2016-10-18] MEDS: NORTRIPTYLINE 25 MG CAP PO SCH (21:34)
[2016-10-18 21:56] VITALS: BP 100/58
[2016-10-19] MEDS: LEVOTHYROXINE 0.125 MG TAB (125 MCG) PO SCH (06:13)
[2016-10-19 06:43] VITALS: BP 98/53
[2016-10-19] MEDS: NICOTINE 21MG/24HR 1 EA TRANSDERMAL TD SCH (09:00)
[2016-10-19] MEDS: CYANOCOBALAMIN 500 MCG TAB PO SCH (09:54)
[2016-10-19] MEDS: ADVAIR DISKUS 250/50 INH PWD INH SCH ×2 (09:54→22:06)
[2016-10-19] MEDS: FUROSEMIDE 40 MG TAB PO SCH (09:54)
[2016-10-19] MEDS: CALCIUM CARBONATE 500 MG CHEW U/D PO SCH (09:54)
[2016-10-19] MEDS: LACTOBACILLUS ACIDOPHILUS CAP (BACID) PO SCH (09:55)
[2016-10-19] MEDS: OMEPRAZOLE 20 MG CAP PO SCH (09:55)
[2016-10-19] MEDS: clonazePAM 0.5 MG TAB PO SCH (09:55)
[2016-10-19] MEDS: predniSONE 10 MG TAB PO SCH (09:55)
[2016-10-19] MEDS: ASPIRIN 81 MG CHEW TABLET PO SCH (09:55)
[2016-10-19] MEDS: POTASSIUM CHLORIDE 10 MEQ SR TABLET PO SCH (09:55)
[2016-10-19] MEDS: MULTIVITAMINS/MINERALS THERAP 1 TAB PO SCH (09:55)
[2016-10-19] MEDS: VALSARTAN 40MG TABLET (DIOVAN) PO SCH (10:04)
[2016-10-19] MEDS: BISOPROLOL FUM 2.5 MG PER 1/2TAB PO SCH (10:04)
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
[2016-10-19 12:40] VITALS: BP 118/58
[2016-10-19 18:19] VITALS: BP 110/60
--- NOTE | 2016-10-19 19:17 | EDDOCDS ---
Physician Documentation [facility] Name: Yani Schaeffer Age: 70 yrs Sex: Female : 1945 Arrival Date: 10/17/2016 Time: 11:22 Bed [facility] Private MD: Disposition: 10/17/16 15:11 Hospitalization ordered by Manny Page for Inpatient Admission. Preliminary diagnosis is Suicidal ideations - with depression. - Bed requested for Admit. - Status is Inpatient Admission. me3 - Condition is Stable. - Problem is new. - Symptoms are unchanged. Historical: - Allergies: PENICILLINS (Rash); - Home Meds: 1. oxygen 2 liters NC nightly 2. valsartan 40 mg oral tab once daily (Last dose: 10/16/2016) 3. vitamin P12-mfyez acid 500-400 mcg oral tab daily (Last dose: 10/16/2016) 4. furosemide 40 mg Oral tab 1 tab once daily (Last dose: 10/16/2016) 5. Trintellix 5 mg oral tab 1 tab once daily (Last dose: 10/16/2016) 6. nortriptyline 75 mg Oral cap 1 cap once daily (Last dose: 10/16/2016) 7. Advair Diskus 250-50 mcg/dose Inhl dsdv 1 puff 2 times per day (Last dose: 10/16/2016) 8. Colace 100 mg oral cap 2 caps once daily 9. fluticasone 50 mcg/actuation nasal spsn 1 spray once daily 10. levothyroxine 125 mcg Oral cap 1 cap once daily (Last dose: 10/16/2016) 11. omeprazole 20 mg Oral cpDR 1 cap once daily (Last dose: 10/16/2016) 12. multivitamin Oral tab 1 tablet daily (Last dose: 10/16/2016) 13. potassium chloride 20 mEq Oral TbER every other day (Last dose: 10/16/2016) 14. prednisone 10 mg Oral tab once daily (Last dose: 10/16/2016) 15. Seroquel 50 mg Oral tab 1 tab 2 times per day (Last dose: 10/16/2016) 16. simvastatin 20 mg Oral tab 1 tab once daily (Last dose: 10/16/2016) 17. Acidophilus Oral tab daily (Last dose: 10/16/2016) 18. Tylenol 325 mg Oral tab 2 tabs bid (Last dose: 10/16/2016) 19. aspirin 81 mg Oral tab 0.5 tabs once daily (Last dose: 10/16/2016) 20. bisoprolol-hydrochlorothiazide 5-6.25 mg oral tab 0.5 tab once daily (Last dose: 10/16/2016) 21. Calci-Chew 500 mg calcium (1,250 mg) Oral chew daily (Last dose: 10/16/2016) 22. clonazepam 0.5 mg Oral tab 1 tab 2 times per day (Last dose: 10/16/2016) - PMHx: COPD; Anxiety; Depression; GERD; hyperlipidemia; Hypertension; Hypothyroidism; - PSHx: Knee Arthroplasty, Left; Knee Arthroplasty, Right; - Social history: No barriers to communication noted, The patient speaks fluent [place], Smoking status: Patient uses tobacco products, current every day smoker. - Family history: Not pertinent. - : The pt / caregiver states he / she is not on anticoagulants. Home medication list is obtained from the facility MAR. - Exposure Risk Screening:: None identified. Vital Signs: 10/17 11:53 BP 144 / 79; Pulse 97; Resp 20; Temp 97.7(O); Pulse Ox 93% ; Pain 0/10; jlf 18:14 BP 137 / 67; Pulse 93; Resp 20; Temp 93; Pulse Ox 90% ; me3 MDM: 11:33 Consult PFS/PSA/Case Work Aide ordered. ml 11:33 Consult PFS/PSA/Case Work Aide: Patient's case requires discussion with on-call ml Psychiatrist ordered. 11:33 PSA/PFS to call Nursing Carbon Cleaner, to enter patient data on [place] Safe [place] if patient ml involuntarily admitted or transferred for SI or HI ordered. 11:33 Confirm accurate psychiatric medication list and times of last dosage ordered. ml 11:33 Detain Pt Until Medically/PFS Cleared ordered. ml 11:34 Acetaminophen Level Ordered. EDMS 11:34 Basic Metabolic Profile Ordered. EDMS 11:34 Complete Blood Count Ordered. EDMS 11:34 Drug Eval Toxicology ED Only Ordered. EDMS 11:34 Ethyl Alcohol (ethanol) Ordered. EDMS 11:34 Liver Profile Ordered. EDMS 11:34 Salicylate Level Ordered. EDMS 11:34 Thyroid Stimulating Hormone Ordered. EDMS 12:23 REGULAR DIET PLASTIC LAGUNAS+DIET ordered. EDMS 12:56 Consult PFS/PSA/Case Work Aide complete. ca 12:57 Consult PFS/PSA/Case Work Aide: Patient's case requires discussion with on-call ca Psychiatrist complete. 12:57 PSA/PFS to call Nursing Carbon Cleaner, to enter patient data [place] Safe [place] if patient ca involuntarily admitted or transferred for SI or HI complete. 14:18 Admit to [facility]: ordered. EDMS 15:21 Acetaminophen Level Reviewed. ml 15:21 Basic Metabolic Profile Reviewed. ml 15:21 Complete Blood Count Reviewed. ml 15:21 Liver Profile Reviewed. ml 15:21 Salicylate Level Reviewed. ml 15:21 Ethyl Alcohol (ethanol) Reviewed. ml 15:21 Thyroid Stimulating Hormone Reviewed. ml 16:46 REGULAR DIET PLASTIC LAGUNAS+DIET ordered. EDMS 17:13 Financial registration complete. zo 17:14 [facility] [place] Payment Agreement was scanned into [employer] and attached to record. zo 17:33 REGULAR DIET PLASTIC LAGUNAS+DIET ordered. EDMS 17:55 [facility] Legal paperwork was scanned into [employer] and attached to record. ml4 18:09 Urinalysis Ordered. EDMS 10/18 12:43 T-Sheet-- Draft Copy was scanned into [employer] and attached to record. gb Signatures: Dispatcher [employer] EDNM Luisa Egan MD MD ml Gregg, Anabel, PSA PSA ca Onelia Carter, Reg Reg gb Kamilla Jolly,STRIP STAMP STRAIGHTENER STRIP STAMP STRAIGHTENER me3 Jazmin Marcial, PSA PSA ml4 Claudine Pinedo Jessica, RN RN jjr The chart was reviewed and I authenticate all verbal orders and agree with the evaluation and treatment provided.Attachments: 10/17 17:14 [facility] [place] Payment Agreement zo 10/18 12:43 T-Sheet-- Draft Copy gb Chart Complete MTDD
--- NOTE | 2016-10-19 19:17 | EDDOCDS ---
Nurse's Notes [facility] Name: Yani Schaeffer Age: 70 yrs Sex: Female : 1945 Arrival Date: 10/17/2016 Time: 11:22 Bed [facility] Private MD: Diagnosis: Suicidal ideations-with depression Presentation: 10/17 11:28 Presenting complaint: EMS states: resident at [facility] in [place], refusing jjr medications this morning per EMS pt stating she wants to , FSBS 157. Mental Health Triage Level: Level 1- Pt displays no suicidal or homicidal ideations and does not appear to be a danger to self or others. Adult Sepsis Screening: The patient does not have new or worsening altered mentation. Patient's respiratory rate is less than 22. Systolic blood pressure is greater than 100. Patient has a qSOFA score of 0- Negative Sepsis Screen. Suicide/Homicide risk assessment- Patient denies SI and HI but presents with another emotional, behavioral or other mental health complaint. Status: Patient is not a water softener servicer or dependent. Transition of care: patient was received from [facility]. 11:28 Acuity: DANIKA Level 3 jjr 11:28 Method Of Arrival: Ambulance jjr Triage Assessment: 11:42 General: Appears in no apparent distress, well nourished, well groomed, Behavior is jjr cooperative, flat. Respiratory: Airway is patent Respiratory effort is even, unlabored, Respiratory pattern is regular. Derm: Skin is pink, warm & dry. 16:48 Pain: Denies pain. me3 Historical: - Allergies: PENICILLINS (Rash); - Home Meds: 1. oxygen 2 liters NC nightly 2. valsartan 40 mg oral tab once daily (Last dose: 10/16/2016) 3. vitamin J98-tpxeq acid 500-400 mcg oral tab daily (Last dose: 10/16/2016) 4. furosemide 40 mg Oral tab 1 tab once daily (Last dose: 10/16/2016) 5. Trintellix 5 mg oral tab 1 tab once daily (Last dose: 10/16/2016) 6. nortriptyline 75 mg Oral cap 1 cap once daily (Last dose: 10/16/2016) 7. Advair Diskus 250-50 mcg/dose Inhl dsdv 1 puff 2 times per day (Last dose: 10/16/2016) 8. Colace 100 mg oral cap 2 caps once daily 9. fluticasone 50 mcg/actuation nasal spsn 1 spray once daily 10. levothyroxine 125 mcg Oral cap 1 cap once daily (Last dose: 10/16/2016) 11. omeprazole 20 mg Oral cpDR 1 cap once daily (Last dose: 10/16/2016) 12. multivitamin Oral tab 1 tablet daily (Last dose: 10/16/2016) 13. potassium chloride 20 mEq Oral TbER every other day (Last dose: 10/16/2016) 14. prednisone 10 mg Oral tab once daily (Last dose: 10/16/2016) 15. Seroquel 50 mg Oral tab 1 tab 2 times per day (Last dose: 10/16/2016) 16. simvastatin 20 mg Oral tab 1 tab once daily (Last dose: 10/16/2016) 17. Acidophilus Oral tab daily (Last dose: 10/16/2016) 18. Tylenol 325 mg Oral tab 2 tabs bid (Last dose: 10/16/2016) 19. aspirin 81 mg Oral tab 0.5 tabs once daily (Last dose: 10/16/2016) 20. bisoprolol-hydrochlorothiazide 5-6.25 mg oral tab 0.5 tab once daily (Last dose: 10/16/2016) 21. Calci-Chew 500 mg calcium (1,250 mg) Oral chew daily (Last dose: 10/16/2016) 22. clonazepam 0.5 mg Oral tab 1 tab 2 times per day (Last dose: 10/16/2016) - PMHx: COPD; Anxiety; Depression; GERD; hyperlipidemia; Hypertension; Hypothyroidism; - PSHx: Knee Arthroplasty, Left; Knee Arthroplasty, Right; - Social history: No barriers to communication noted, The patient speaks fluent Maltese, Smoking status: Patient uses tobacco products, current every day smoker. - Family history: Not pertinent. - : The pt / caregiver states he / she is not on anticoagulants. Home medication list is obtained from the facility NOV. - Exposure Risk Screening:: None identified. Screenin:46 Screening information is obtained from the patient. Fall risk: At risk due to age. me3 Assistance ADL's: requires no assistance with activities of daily living. Abuse/DV Screen: The patient / caregiver reports he/she is: not in a situation that causes fear, pain or injury. Nutritional screening: No deficits noted. home support is adequate. 12:55 Advance Directives: Currently, there is a health care proxy, Yamel Mendoza [phone].me3 Assessment: 12:12 General: Appears in no apparent distress, comfortable, Behavior is cooperative, me3 pleasant. Respiratory: No deficits noted. Airway is patent Respiratory effort is even, unlabored. Derm: small scabbed area noted to right little toe, pt states it's from her shoe runbbng. 13:08 General: Appears in no apparent distress, comfortable, Behavior is cooperative, quiet. me3 General: pt is refusing to eat her lunch. Respiratory: Airway is patent Respiratory effort is even, unlabored. 14:21 General: Appears in no apparent distress, comfortable, Behavior is quiet. Respiratory: me3 No deficits noted. Airway is patent Respiratory effort is even, unlabored. 15:13 General: Appears in no apparent distress, comfortable, Behavior is cooperative, me3 pleasant. General: Appears. Respiratory: No deficits noted. Airway is patent Respiratory effort is even, unlabored. 16:15 General: Appears in no apparent distress, comfortable, Behavior is cooperative, flat. me3 Respiratory: No deficits noted. Airway is patent Respiratory effort is even, unlabored. Derm: Skin is pink, warm & dry. 17:14 General: Appears in no apparent distress, comfortable, Behavior is cooperative, flat. me3 Respiratory: Airway is patent Respiratory effort is even, unlabored. Derm: Skin is pink, warm & dry. 18:13 General: Appears in no apparent distress, comfortable, Behavior is cooperative, flat. me3 Respiratory: Airway is patent Respiratory effort is even, unlabored. Derm: Skin is pink, warm & dry. Mental Health Eval: 12:40 Mental health consult is initiated at 12:40. Status: The patient is not a ca water softener servicer or dependent. 12:57 [facility] Behavioral Health: The patient is not an established patient of [facility] Behavioral nm Health. Referral Information: Evaluation referral is generated by EMS. The patient was referred for evaluation because Staff at assisted living called ambulance because pt stated she wants to and is refusing her medications. Subjective: The patients chief complaint is Pt states "I just want to ." Appears quite depressed, lethargic, poor eye contact. States nothing can be done to help her. States she has not been eating and having great difficulty sleeping lately. Pt unable or unwilling to further elaborate on her stressors. Delusions are denied. Patient's mood is depressed, hopeless, Hallucinations are denied. Pt resides in assisted [facility] She says she has no family support or friends. Pt refused to take her medications this morning and it is unclear when she stopped taking them. Pt is somewhat difficult to interview because she is very withdrawn, soft speech, continues to state "I'm just depressed." Pt admits to suicidal thoughts, no plan stated. Unclear how long she has had SI. Denies A/VH, ETOH, drugs, HI. Does not know the name of her psychiatrist or when she last was seen. Denies having counselor. Sees Dr Jean Baptiste for medical. Mental Health history: depression, sleep disturbance. 13:31 Mental Health history: Mental Health Admissions: 12/2009 at [facility] for depression, SI ca Current Outpatient Mental Health Services: Psychiatrist / Agency: Pt does not know name of current psychiatrist. Per medical record, pt saw Dr Yoder in the past.. Current living environment is Family / Home Support: unknown at this time The patient currently lives in own apt in an assisted living community . The patient is . Patient presents to Emergency Department with the following symptoms within the past 2 weeks: anxiety, depressed mood, feelings of helplessness/hopelessness, non-compliance, sleep disturbance - insomnia, suicidal ideation with no plan. Substance abuse: Pt denies. Mental status exam: Patients appearance is disheveled Patient's behavior is minimally responsive Speech is mumbled. slow. Affect is flat. Mood is depressed. Hallucinations are denied. Appetite is poor. Memory is fair. Energy level is lethargic. Content of thought is Depressive Thought process is intact. Cognitive level is oriented to person, place, time and situation Patient's insight is poor. Judgement is poor. Rapport with interviewer is pt is withdrawn. Suicidal Ideation is present with no specific plan. Homicidal ideation is denied. Disposition:. DSM-V Differential Diagnosis: Unspecified Depressive Disorder (F32.9). 18:18 Disposition: Medically cleared for disposition by Luisa Egan MD Psychiatric ca Consult is performed by phone with Dr Manny Page MD. [facility] Admission Criteria: The patient is experiencing suicidal ideation. The patient displays symptoms of severe psychiatric disorder resulting in disordered behavior and significant interference with his / her ability to maintain self care. Psychomotor Retardation. The patient requires continuous observation and/or control to protect self, others or property. The patient's care requires a multi-modal treatment plan under close supervision and coordination due to the complexity and severity of the patient's symptoms. The patient requires administration and monitoring of psychoactive medications by skilled medical providers due to the side effects of the psychoactive medications or significant dosage adjustments. Legal Status: Patient's legal status will be Emergency admission: . [place] Safe Act: [place] Safe Act is applicable to this patient. The patient poses a risk to self or other and the Nursing Building Maintenance Repairer has been notified. He/She will enter the patient's data. 18:19 Insurance Pre-Certification: Not Required, Pt has Medicaid and Medicare. Awaiting: ca transfer to [facility]. Vital Signs: 11:53 BP 144 / 79; Pulse 97; Resp 20; Temp 97.7(O); Pulse Ox 93% ; Pain 0/10; jlf 18:14 BP 137 / 67; Pulse 93; Resp 20; Temp 93; Pulse Ox 90% ; me3 Vitals: 11:43 Log In Time N/A - ambulance arrival. [facility] ED Course: 11:23 Patient visited by Oriana Gutiérrez, Dsp Engineer. deg 11:23 Patient moved to [facility] deg 11:24 Patient moved to [facility] deg 11:33 Triage Initiated jjr 11:43 Patient visited by Ana Diaz RN. jr 11:52 Kamilla Jolly LPN is Primary Nurse. me3 11:55 Patient visited by Parul Cox PCA. jlf 12:02 Luisa Egan MD is Attending Physician. ml 12:02 Patient visited by Luisa Egan MD. ml 12:13 The patient / caregiver is instructed regarding the plan of care and ED course. Patient me3 has correct armband on for positive identification. Placed in psych safe attire. Bed in low position. Security observing. Door closed. Noise minimized. Warm blanket given. Pillow given. 12:28 Patient visited by Kevon Guerin Security Aide. pjf 12:44 Patient visited by Kevon Guerin Security Aide. pjf 12:47 No IV's were initiated during this patient's visit. No procedures done that require ia3 assistance. 13:00 Patient visited by Kamilla Jolly LPN. me3 13:15 Psych Safety Check: Location: Psych Room. Visual Assessment: Cooperative. pjf 13:32 Patient visited by Kevon Guerin Security Aide. pjf 13:47 Patient visited by Kevon Guerin Security Aide. pjf 13:58 Patient visited by Kevon Guerin Security Aide. pjf 14:12 Patient visited by Kevon Guerin Security Aide. pjf 14:39 Patient visited by Kamilla Jolly LPN. me3 14:46 Patient visited by Kevon Guerin Security Aide. pjf 15:00 Patient visited by Kevon Guerin Security Aide. pjf 15:11 Manny Page MD is Hospitalizing Provider. ml 15:37 Patient visited by Kevon Guerin Security Aide. pjf 15:59 Patient visited by Kevon Guerin Security Aide. pjf 17:06 Patient visited by Kevon Guerin Security Aide. pjf 17:14 [facility] [place] was scanned into Vessel and attached to record. zo 17:37 Patient visited by Kevon Guerin Security Aide. pjf 17:53 Patient visited by Kevon Guerin Security Aide. pjf 17:55 E Legal paperwork was scanned into Vessel and attached to record. ml4 18:08 Patient visited by Kevon Guerin Security Aide. pjf 18:12 Urinalysis Sent. me3 10/18 12:43 T-Sheet-- Draft Copy was scanned into Vessel and attached to record. gb Attachments: 17:55 [facility] Legal paperwork ml4 Order Results: Lab Order: Acetaminophen Level; SPEC'M 10/17/16 12:05 Test: ACETAMINOPHEN LEVEL; Value: < 2.0; Range: 10.0-30.0; Abnormal: Below low normal; Units: UG/ML; Status: F Lab Order: Basic Metabolic Profile; SPEC'M 10/17/16 12:05 Test: GLUCOSE, FASTING; Value: 120; Range: 83-110; Abnormal: Above high normal; Units: MG/DL; Status: F Test: BLOOD UREA NITROGEN; Value: 20; Range: 7-18; Abnormal: Above high normal; Units: MG/DL; Status: F Test: CREATININE FOR GFR; Value: 1.03; Range: 0.55-1.02; Abnormal: Above high normal; Units: MG/DL; Status: F Test: GLOMERULAR FILTRATION RATE; Value: 56.1; Range: >39; Status: F Test: SODIUM LEVEL; Value: 139; Range: 136-145; Units: MEQ/L; Status: F Test: POTASSIUM SERUM; Value: 3.6; Range: 3.5-5.1; Units: MEQ/L; Status: F Test: CHLORIDE LEVEL; Value: 99; Range: 98-107; Units: MEQ/L; Status: F Test: CARBON DIOXIDE LEVEL; Value: 29; Range: 21-32; Units: MEQ/L; Status: F Test: ANION GAP; Value: 11; Range: 8-16; Units: MEQ/L; Status: F Test: CALCIUM LEVEL; Value: 8.9; Range: 8.8-10.2; Units: MG/DL; Status: F Test Note: ; Units are mL/min/1.73 m2 Chronic Kidney Disease Staging per NKF: Stage I & II GFR >=60 Normal to Mildly Decreased Stage III GFR 30-59 Moderately Decreased Stage IV GFR 15-29 Severely Decreased Stage V GFR <15 Very Little GFR Left ESRD GFR <15 on INDUSTRIAL PAINTER Lab Order: Complete Blood Count; [facility]10/17/16 12:05 Test: WHITE BLOOD COUNT; Value: 13.6; Range: 4.0-10.0; Abnormal: Above high normal; Units: K/mm3; Status: F Test: RED BLOOD COUNT; Value: 4.16; Range: 4.00-5.40; Units: M/mm3; Status: F Test: HEMOGLOBIN; Value: 12.9; Range: 12.0-16.0; Units: g/dl; Status: F Test: HEMATOCRIT; Value: 40.2; Range: 36.0-47.0; Units: %; Status: F Test: MEAN CORPUSCULAR VOLUME; Value: 96.6; Range: 80.0-96.0; Abnormal: Above high normal; Units: fl; Status: F Test: MEAN CORPUSCULAR HEMOGLOBIN; Value: 31.1; Range: 27.0-33.0; Units: pg; Status: F Test: MEAN CORPUSCULAR HGB CONC; Value: 32.2; Range: 32.0-36.5; Units: g/dl; Status: F Test: RED CELL DISTRIBUTION WIDTH; Value: 15.5; Range: 11.5-14.5; Abnormal: Above high normal; Units: %; Status: F Test: PLATELET COUNT, AUTOMATED; Value: 325; Range: 150-450; Units: k/mm3; Status: F Lab Order: Drug Eval Toxicology ED Only; SPEC'M 10/17/16 17:22 Test: AMPHETAMINES LEVEL URINE; Value: NEGATIVE; Range: NEGATIVE; Status: F Test: BARBITURATES URINE; Value: NEGATIVE; Range: NEGATIVE; Status: F Test: BENZODIAZEPINES URINE; Value: NEGATIVE; Range: NEGATIVE; Status: F Test: CANNABINOIDS URINE; Value: NEGATIVE; Range: NEGATIVE; Status: F Test: COCAINE METABOLITE URINE; Value: NEGATIVE; Range: NEGATIVE; Status: F Test: METHADONE URINE; Value: NEGATIVE; Range: NEGATIVE; Status: F Test: OPIATES URINE; Value: NEGATIVE; Range: NEGATIVE; Status: F Test: TRICYCLIC ANTIDEPRESS URINE; Value: POSITIVE; Range: NEGATIVE; Abnormal: Above high normal; Status: F Test Note: ; ALL PRESUMPTIVE POSITIVE FINDINGS ARE UNCONFIRMED NORMAL VALUES THRESHOLD IN NG/ML AMPHETAMINES 1000 METHAMPHETAMINES 1000 BARBITURATES 300 BENZODIAZEPINES 300 CANNABINOIDS (THC) 50 COCAINE METABOLITE 300 METHADONE 300 OPIATES 300 PHENCYCLIDINE 25 TRICYCLIC ANTIDEPRESSANTS 1000 RESULTS ARE FOR MEDICAL PURPOSES ONLY. ALL URINE SPECIMENS WILL BE SAVED FOR 3 DAYS. IF CONFIRMATION OF A PRESUMPTIVE POSTIVE SCREEN RESULT IS DESIRED, CALL CHEMISTRY ([phone]) AND REQUEST URINE TO BE SENT TO REFERENCE LAB. FOR A LIST OF CLOSELY RELATED COMPOUNDS PLEASE CALL THE LAB. Lab Order: Ethyl Alcohol (ethanol); SPEC'M 10/17/16 12:05 Test: ETHYL ALCOHOL (ETHANOL); Value: < 0.003; Range: 0.000-0.010; Units: %; Status: F Lab Order: Liver Profile; SPEC'M 10/17/16 12:05 Test: AST/SGOT; Value: 21; Range: 15-37; Units: U/L; Status: F Test: ALT/SGPT; Value: 50; Range: 12-78; Units: U/L; Status: F Test: ALKALINE PHOSPHATASE; Value: 96; Range: 45-117; Units: U/L; Status: F Test: BILIRUBIN,TOTAL; Value: 0.7; Range: 0.2-1.0; Units: MG/DL; Status: F Test: BILIRUBIN,DIRECT; Value: 0.3; Range: 0.0-0.2; Abnormal: Above high normal; Units: MG/DL; Status: F Test: TOTAL PROTEIN; Value: 7.1; Range: 6.4-8.2; Units: GM/DL; Status: F Test: ALBUMIN; Value: 3.7; Range: 3.2-5.2; Units: GM/DL; Status: F Test: ALBUMIN/GLOBULIN RATIO; Value: 1.09; Range: 1.00-1.93; Status: F Lab Order: Salicylate Level; SPEC'M 10/17/16 12:05 Test: SALICYLATE LEVEL; Value: < 1.7; Range: 5.0-30.0; Abnormal: Below low normal; Units: MG/DL; Status: F Lab Order: Thyroid Stimulating Hormone; SPEC'M 10/17/16 12:05 Test: THYROID STIMULATING HORMONE; Value: 2.280; Range: 0.358-3.740; Units: uIU/ML; Status: F Outcome: 10/17 14:22 Property removed, inventory done, secured in belongings bag- placed in locked locker. me3 15:11 Decision to Hospitalize by Provider. ml 17:15 No special radiology studies were completed. me3 18:13 Discharge Assessment: patient administered narcotics - no. The following High Risk me3 Discharge criteria are identified: None. Admitted to Psych accompanied by tech, via wheelchair, with chart. Condition: stable. 18:16 Patient left the ED. me3 Signatures: Luisa Egan MD MD ml Murray, Denise, Dsp Engineer Unit deg Anabel Escobedo, MATTHEW PSA ca Onelia Carter, Reg Reg gb Ferendzo, Kevon, Security Delorese Securpjf Shanae,Kamilla,BRIQUETTE OPERATOR BRIQUETTE OPERATOR me3 Jazmin Marcial, PSA PSA ml4 Claudine Pinedo Jessica, RN RN jjr Brooke, Parul, RESIDENTIAL ELECTRICIAN RESIDENTIAL ELECTRICIAN jlf Chart Complete MTDD
--- NOTE | 2016-10-19 19:17 | EDDOCDS ---
Physician Documentation [facility] Name: Yani Schaeffer Age: 70 yrs Sex: Female : 1945 Arrival Date: 10/17/2016 Time: 11:22 Bed [facility] Private MD: Disposition: 10/17/16 15:11 Hospitalization ordered by Manny Page for Inpatient Admission. Preliminary diagnosis is Suicidal ideations - with depression. - Bed requested for Admit. - Status is Inpatient Admission. me3 - Condition is Stable. - Problem is new. - Symptoms are unchanged. Historical: - Allergies: PENICILLINS (Rash); - Home Meds: 1. oxygen 2 liters NC nightly 2. valsartan 40 mg oral tab once daily (Last dose: 10/16/2016) 3. vitamin G06-tuows acid 500-400 mcg oral tab daily (Last dose: 10/16/2016) 4. furosemide 40 mg Oral tab 1 tab once daily (Last dose: 10/16/2016) 5. Trintellix 5 mg oral tab 1 tab once daily (Last dose: 10/16/2016) 6. nortriptyline 75 mg Oral cap 1 cap once daily (Last dose: 10/16/2016) 7. Advair Diskus 250-50 mcg/dose Inhl dsdv 1 puff 2 times per day (Last dose: 10/16/2016) 8. Colace 100 mg oral cap 2 caps once daily 9. fluticasone 50 mcg/actuation nasal spsn 1 spray once daily 10. levothyroxine 125 mcg Oral cap 1 cap once daily (Last dose: 10/16/2016) 11. omeprazole 20 mg Oral cpDR 1 cap once daily (Last dose: 10/16/2016) 12. multivitamin Oral tab 1 tablet daily (Last dose: 10/16/2016) 13. potassium chloride 20 mEq Oral TbER every other day (Last dose: 10/16/2016) 14. prednisone 10 mg Oral tab once daily (Last dose: 10/16/2016) 15. Seroquel 50 mg Oral tab 1 tab 2 times per day (Last dose: 10/16/2016) 16. simvastatin 20 mg Oral tab 1 tab once daily (Last dose: 10/16/2016) 17. Acidophilus Oral tab daily (Last dose: 10/16/2016) 18. Tylenol 325 mg Oral tab 2 tabs bid (Last dose: 10/16/2016) 19. aspirin 81 mg Oral tab 0.5 tabs once daily (Last dose: 10/16/2016) 20. bisoprolol-hydrochlorothiazide 5-6.25 mg oral tab 0.5 tab once daily (Last dose: 10/16/2016) 21. Calci-Chew 500 mg calcium (1,250 mg) Oral chew daily (Last dose: 10/16/2016) 22. clonazepam 0.5 mg Oral tab 1 tab 2 times per day (Last dose: 10/16/2016) - PMHx: COPD; Anxiety; Depression; GERD; hyperlipidemia; Hypertension; Hypothyroidism; - PSHx: Knee Arthroplasty, Left; Knee Arthroplasty, Right; - Social history: No barriers to communication noted, The patient speaks fluent Slovak, Smoking status: Patient uses tobacco products, current every day smoker. - Family history: Not pertinent. - : The pt / caregiver states he / she is not on anticoagulants. Home medication list is obtained from the facility MAR. - Exposure Risk Screening:: None identified. Vital Signs: 10/17 11:53 BP 144 / 79; Pulse 97; Resp 20; Temp 97.7(O); Pulse Ox 93% ; Pain 0/10; jlf 18:14 BP 137 / 67; Pulse 93; Resp 20; Temp 93; Pulse Ox 90% ; me3 MDM: 11:33 Consult PFS/PSA/Fiberglass Luggage Molder ordered. ml 11:33 Consult PFS/PSA/Fiberglass Luggage Molder: Patient's case requires discussion with on-call ml Psychiatrist ordered. 11:33 PSA/PFS to call Nursing Ammonium Nitrate Neutralizer, to enter patient data on [place] Safe Act if patient ml involuntarily admitted or transferred for SI or HI ordered. 11:33 Confirm accurate psychiatric medication list and times of last dosage ordered. ml 11:33 Detain Pt Until Medically/PFS Cleared ordered. ml 11:34 Acetaminophen Level Ordered. EDMS 11:34 Basic Metabolic Profile Ordered. EDMS 11:34 Complete Blood Count Ordered. EDMS 11:34 Drug Eval Toxicology ED Only Ordered. EDMS 11:34 Ethyl Alcohol (ethanol) Ordered. EDMS 11:34 Liver Profile Ordered. EDMS 11:34 Salicylate Level Ordered. EDMS 11:34 Thyroid Stimulating Hormone Ordered. EDMS 12:23 REGULAR DIET PLASTIC LAGUNAS+DIET ordered. EDMS 12:56 Consult PFS/PSA/Fiberglass Luggage Molder complete. ca 12:57 Consult PFS/PSA/Fiberglass Luggage Molder: Patient's case requires discussion with on-call ca Psychiatrist complete. 12:57 PSA/PFS to call Nursing Ammonium Nitrate Neutralizer, to enter patient data on [place] Safe Act if patient ca involuntarily admitted or transferred for SI or HI complete. 14:18 Admit to [facility]: ordered. EDMS 15:21 Acetaminophen Level Reviewed. ml 15:21 Basic Metabolic Profile Reviewed. ml 15:21 Complete Blood Count Reviewed. ml 15:21 Liver Profile Reviewed. ml 15:21 Salicylate Level Reviewed. ml 15:21 Ethyl Alcohol (ethanol) Reviewed. ml 15:21 Thyroid Stimulating Hormone Reviewed. ml 16:46 REGULAR DIET PLASTIC LAGUNAS+DIET ordered. EDMS 17:13 Financial registration complete. zo 17:14 [place] was scanned into A[employer] and attached to record. zo 17:33 REGULAR DIET PLASTIC LAGUNAS+DIET ordered. EDMS 17:55 [facility] Legal paperwork was scanned into [employer] and attached to record. ml4 18:09 Urinalysis Ordered. EDMS 10/18 12:43 T-Sheet-- Draft Copy was scanned into [employer] and attached to record. gb Signatures: Dispatcher [employer] EDFL Luisa Egan MD MD ml Gregg, Anabel, PSA PSA ca Onelia Carter, Reg Reg gb Kamilla Jolly,BUSINESS PROCESS REPRESENTATIVE BUSINESS PROCESS REPRESENTATIVE me3 Jazmin Marcial, PSA PSA ml4 Claudine Pinedo Jessica, RN RN jjr The chart was reviewed and I authenticate all verbal orders and agree with the evaluation and treatment provided.Attachments: 10/17 17:14 [facility] [place] zo 10/18 12:43 T-Sheet-- Draft Copy gb Chart Complete MTDD
[2016-10-19] MEDS: DOCUSATE SODIUM 100 MG CAP PO SCH (22:06)
[2016-10-19] MEDS: SIMVASTATIN 20 MG TAB PO SCH (22:06)
[2016-10-19] MEDS: NORTRIPTYLINE 25 MG CAP PO SCH (22:06)
[2016-10-20] MEDS: LEVOTHYROXINE 0.125 MG TAB (125 MCG) PO SCH (06:30)
[2016-10-20 07:08] VITALS: BP 117/58
[2016-10-20] MEDS: VALSARTAN 40MG TABLET (DIOVAN) PO SCH (09:00)
[2016-10-20] MEDS: NICOTINE 21MG/24HR 1 EA TRANSDERMAL TD SCH (09:00)
[2016-10-20] MEDS: clonazePAM 0.5 MG TAB PO SCH ×4 (09:00→23:43)
[2016-10-20] MEDS: CYANOCOBALAMIN 500 MCG TAB PO SCH (09:00)
[2016-10-20] MEDS: FUROSEMIDE 40 MG TAB PO SCH (09:00)
[2016-10-20] MEDS: predniSONE 10 MG TAB PO SCH (09:00)
[2016-10-20] MEDS: ASPIRIN 81 MG CHEW TABLET PO SCH (09:00)
[2016-10-20] MEDS: LACTOBACILLUS ACIDOPHILUS CAP (BACID) PO SCH (09:00)
[2016-10-20] MEDS: ADVAIR DISKUS 250/50 INH PWD INH SCH ×4 (09:20→23:45)
[2016-10-20] MEDS: CALCIUM CARBONATE 500 MG CHEW U/D PO SCH (09:22)
[2016-10-20] MEDS: OMEPRAZOLE 20 MG CAP PO SCH (09:22)
[2016-10-20] MEDS: MULTIVITAMINS/MINERALS THERAP 1 TAB PO SCH (09:22)
[2016-10-20 09:29] LABS: MEAN CORPUSCULAR HEMOGLOBIN 30.8 pg (27.0-33.0); MEAN CORPUSCULAR HGB CONC 32.4 g/dl (32.0-36.5); WHITE BLOOD COUNT 12.1 K/mm3 (4.0-10.0)
[2016-10-20 09:35] VITALS: BP 117/58
[2016-10-20] MEDS: BISOPROLOL FUM 2.5 MG PER 1/2TAB PO SCH (09:35)
[2016-10-20] MEDS: POTASSIUM CHLORIDE 10 MEQ SR TABLET PO SCH (09:37)
[2016-10-20 09:41] LABS: ANION GAP 10 MEQ/L (8-16); BLOOD UREA NITROGEN 28 MG/DL (7-18); CALCIUM LEVEL 8.9 MG/DL (8.8-10.2); CARBON DIOXIDE LEVEL 31 MEQ/L (21-32); CHLORIDE LEVEL 102 MEQ/L (98-107); CREATININE FOR GFR 0.91 MG/DL (0.55-1.02); GLOMERULAR FILTRATION RATE > 60.0 (>39); GLUCOSE, FASTING 112 MG/DL (83-110); POTASSIUM SERUM 3.6 MEQ/L (3.5-5.1); SODIUM LEVEL 143 MEQ/L (136-145)
[2016-10-20] MEDS ORDERED: FUROSEMIDE 40 MG TAB PO ONE (12:30)
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
--- NOTE | 2016-10-20 14:15 | IPNPDOC ---
Subjective General Date Seen The patient was seen on 10/20/16. Subjective Chief Complaint/HPI The patient is a 70-year-old female admitted with a reason for visit of Major Depressive Do. Events since last encounter Attempted to f/u with Pt today re f/u labs. Pt refused labs this AM but subsequently lab returned and she had them drawn. She refused several meds this AM, but then took some of them. She is lying in bed currently and refuses to open her eyes to speak to me. Occasionally opens her eyes and then closes them again. Will not respond to any questions. She has refused to eat lunch and has not been taking much po today per nursing. Kristin TIMO was also present in the room for the visit. Objective Physical Examination Other physical findings Pt not able to participate with exam. Assessment /Plan Problems Problems: (1) Decreased oral intake Status: Acute Problem Text: * Pt will not respond during visit. * encourage po intake, discussed with RN * fluids placed at bedside. * Stable CBC/BMP today * recheck labs in AM. * Monitor. (2) COPD (chronic obstructive pulmonary disease) Status: Chronic Problem Text: * advair * po prednisone * O2 at night (3) HTN (hypertension) Status: Chronic Problem Text: * Lasix- pt took dose this AM * Will need to hold if pt does not resume eating and drinking- reasses in AM * Zebeta * Diovan- Pt refused today. * BP stable. * BP meds with hold parameters. (4) Hypothyroid Status: Chronic Problem Text: * supplement (5) HLD (hyperlipidemia) Status: Chronic Problem Text: * statin (6) History of unsteady gait Status: Chronic Problem Text: * Seen by PT for kristin- safe per PT (7) Leukocytosis Status: Acute Problem Text: * possibly stress response. * Afebrile. * Pt declines to provide repeat UA/UC. I have called lab and they were unable to complete UC from admission sample. * UA on admission reviewed with Dr Sánchez- JAYY. No confirmed UTI. Will treat empirically with 5 days macrobid. (pt is PCN allergic) Prior UC with E coli. * recheck labs in AM * Monitor. Plan/VTE VTE Prophylaxis Ordered?: No (ambulatory) VS, I&O, 24H, Fishbone Vital Signs/I&O Vital Signs Date Time Temp Pulse Resp B/P Pulse Ox O2 Delivery O2 Flow Rate FiO2 10/20/16 09:35 89 117/58 10/20/16 07:08 96.3 16 10/19/16 18:19 92 Room Air Laboratory Data 24H LABS Laboratory Tests 2 10/20/16 09:09: Anion Gap 10, Blood Urea Nitrogen 28H, Creatinine 0.91, Sodium Level 143, Potassium Level 3.6, Chloride Level 102, Carbon Dioxide Level 31, Calcium Level 8.9, Glomerular Filtration Rate > 60.0 CBC/BMP Laboratory Tests 10/20/16 09:09 Calcium Level 8.9, Red Blood Count 4.34, Mean Corpuscular Volume 95.0, Mean Corpuscular Hemoglobin 30.8, Mean Corpuscular Hemoglobin Concent 32.4, Red Cell Distribution Width 15.0 H Shanika De Souza Oct 20, 2016 14:15
[2016-10-20] MEDS: TRINTELLIX 5 MG PO SCH (17:17)
[2016-10-20 18:00] VITALS: BP 101/45
[2016-10-20] MEDS: NORTRIPTYLINE 25 MG CAP PO SCH ×3 (21:00→23:46)
[2016-10-20] MEDS: DOCUSATE SODIUM 100 MG CAP PO SCH ×3 (21:00→23:45)
[2016-10-20] MEDS: SIMVASTATIN 20 MG TAB PO SCH ×3 (21:00→23:46)
[2016-10-20] MEDS: QUEtiapine FUMARATE 25 MG TAB PO SCH ×3 (21:00→23:44)
[2016-10-20] MEDS: NITROFURANTOIN (MACROBID) 100 MG CAP PO SCH ×3 (21:00→23:43)
[2016-10-21] MEDS: NORTRIPTYLINE 25 MG CAP PO SCH (00:10)
[2016-10-21] MEDS: LEVOTHYROXINE 0.125 MG TAB (125 MCG) PO SCH (05:52)
[2016-10-21 06:37] VITALS: BP 139/79
[2016-10-21 09:35] LABS: MEAN CORPUSCULAR HEMOGLOBIN 30.8 pg (27.0-33.0); MEAN CORPUSCULAR HGB CONC 31.9 g/dl (32.0-36.5); MEAN CORPUSCULAR VOLUME 96.4 fl (80.0-96.0); WHITE BLOOD COUNT 18.2 K/mm3 (4.0-10.0)
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
[2016-10-21] MEDS: TRINTELLIX 5 MG PO SCH (10:00)
[2016-10-21] MEDS: CALCIUM CARBONATE 500 MG CHEW U/D PO SCH (10:00)
[2016-10-21] MEDS: LACTOBACILLUS ACIDOPHILUS CAP (BACID) PO SCH (10:00)
[2016-10-21] MEDS: POTASSIUM CHLORIDE 10 MEQ SR TABLET PO SCH (10:00)
[2016-10-21] MEDS: NICOTINE 21MG/24HR 1 EA TRANSDERMAL TD SCH (10:00)
[2016-10-21] MEDS: FUROSEMIDE 40 MG TAB PO SCH (10:00)
[2016-10-21] MEDS: BISOPROLOL FUM 2.5 MG PER 1/2TAB PO SCH (10:00)
[2016-10-21] MEDS: VALSARTAN 40MG TABLET (DIOVAN) PO SCH (10:00)
[2016-10-21] MEDS: predniSONE 10 MG TAB PO SCH (10:00)
[2016-10-21] MEDS: NITROFURANTOIN (MACROBID) 100 MG CAP PO SCH (10:00)
[2016-10-21] MEDS: OMEPRAZOLE 20 MG CAP PO SCH (10:00)
[2016-10-21] MEDS: MULTIVITAMINS/MINERALS THERAP 1 TAB PO SCH (10:00)
[2016-10-21] MEDS: clonazePAM 0.5 MG TAB PO SCH (10:00)
[2016-10-21] MEDS: CYANOCOBALAMIN 500 MCG TAB PO SCH (10:00)
[2016-10-21] MEDS: QUEtiapine FUMARATE 25 MG TAB PO SCH (10:00)
[2016-10-21] MEDS: ADVAIR DISKUS 250/50 INH PWD INH SCH (10:00)
[2016-10-21] MEDS: ASPIRIN 81 MG CHEW TABLET PO SCH (10:00)
[2016-10-21 10:19] LABS: CALCIUM LEVEL 9.5 MG/DL (8.8-10.2); CREATININE FOR GFR 1.14 MG/DL (0.55-1.02); GLOMERULAR FILTRATION RATE 49.9 (>39); POTASSIUM SERUM 3.4 MEQ/L (3.5-5.1)
[2016-10-21] MEDS ORDERED: POTASSIUM CHLORIDE 10 MEQ SR TABLET PO ONE (10:45)
--- NOTE | 2016-10-21 13:25 | IPNPDOC ---
Subjective General Date Seen The patient was seen on 10/21/16. Subjective Chief Complaint/HPI The patient is a 70-year-old female admitted with a reason for visit of Major Depressive Do. Events since last encounter Pt refuses to participate with interview. Objective Physical Examination General Exam: Positive: Alert (Pt is alert and is looking forward but will not participate with exam. ) ENT Exam: Positive: Atraumatic, Other ENT (MM appear to be dry) Psych Exam: Positive: Mental status NL Assessment /Plan Problems Problems: (1) Decreased oral intake Status: Acute Problem Text: * Pt will not respond again today during visit. * encourage po intake, discussed with RN * Pt went to [facility] for breakfast but little po intake. * CBC/CMP today reviewed with attending, Dr Weston * recheck labs in AM. * Pt has declined UA/UC, CXR * Request CT Head. * Pt is declining most meds, declined po antibiotics. * Monitor. (2) COPD (chronic obstructive pulmonary disease) Status: Chronic Problem Text: * advair * po prednisone * O2 at night (3) HTN (hypertension) Status: Chronic Problem Text: * Hold by mouth Lasix secondary to poor by mouth intake- * Zebeta with hold parameters * Diovan- on hold * BP stable. * (4) Hypothyroid Status: Chronic Problem Text: * supplement (5) HLD (hyperlipidemia) Status: Chronic Problem Text: * statin (6) History of unsteady gait Status: Chronic Problem Text: * Seen by PT for ian- safe per PT (7) Leukocytosis Status: Acute Problem Text: * Patient has refused rapid flu screen * Afebrile. * Pt declines to provide repeat UA/UC several times. I have called lab and they were unable to complete UC from admission sample. * UA on admission reviewed with Dr Sánchez- JAYY. No confirmed UTI. Will treat empirically with 5 days macrobid. (pt is PCN allergic) Prior UC with E coli. Patient is declining to take medication. * recheck labs in AM * Monitor. Plan/VTE VTE Prophylaxis Ordered?: No (ambulatory) VS, I&O, 24H, Fishbone Vital Signs/I&O Vital Signs Date Time Temp Pulse Resp B/P Pulse Ox O2 Delivery O2 Flow Rate FiO2 10/21/16 06:37 96.5 122 20 139/79 93 2/8/17 18:19 Room Air I&O- Last 24 Hours up to 6 AM 10/21/16 05:59 Intake Total 50 ml Balance 50 ml Laboratory Data 24H LABS Laboratory Tests 2 10/21/16 09:12: Anion Gap 15, Blood Urea Nitrogen 28H, Creatinine 1.14H, Sodium Level 143, Potassium Level 3.4L, Chloride Level 102, Carbon Dioxide Level 26, Calcium Level 9.5, Glomerular Filtration Rate 49.9 CBC/BMP Laboratory Tests 10/21/16 09:12 Calcium Level 9.5, Red Blood Count 5.03, Mean Corpuscular Volume 96.4 H, Mean Corpuscular Hemoglobin 30.8, Mean Corpuscular Hemoglobin Concent 31.9 L, Red Cell Distribution Width 15.0 H Shanika De Souza Oct 21, 2016 13:25
[2016-10-21 15:19] VITALS: BP 86/58
[2016-10-21] MEDS ORDERED: MILKSUS PO (17:43)
[2016-10-21] MEDS ORDERED: MAALSUS20 PO (17:43)
[2016-10-21] MEDS ORDERED: NICO21DI5 TD (17:43)
[2016-10-21] MEDS ORDERED: MACR100C3 PO (17:43)
[2016-10-21 18:00] VITALS: BP 122/57
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
== END 2016-10-21 18:35 | DRG 885 ==
LOC: M ED 11:22 → M PSY 18:34
PROVIDERS: ADMIT Psychiatry & Neurology Psychiatry; ATTEND Psychiatry & Neurology Psychiatry
DX: F32.2 Major depressive disorder, single episode, severe without psychotic features (principal); F43.23 Adjustment disorder with mixed anxiety and depressed mood; J44.9 Chronic obstructive pulmonary disease, unspecified; I10 Essential (primary) hypertension; E03.9 Hypothyroidism, unspecified; F17.200 Nicotine dependence, unspecified, uncomplicated; Z88.0 Allergy status to penicillin; Z88.8 Allergy status to other drugs, medicaments and biological substances; Z79.899 Other long term (current) drug therapy; Z79.82 Long term (current) use of aspirin; K21.9 Gastro-esophageal reflux disease without esophagitis; E78.5 Hyperlipidemia, unspecified

== ENCOUNTER 2016-10-21 14:53 | Inpatient (IN) | payer MEDICARE, MEDICAID ==
[~2016-10-21] VITALS: Ht 160 cm; Wt 78.2 kg
[~2016-10-21 14:53] MED LIST changes: +ACET650T2 PO; +ADV250INH INH; +ARTI99.0 OU; +ASPI1TAB PO; +BACITAB3 PO; +BRIN1TAB PO; +CALC500C16 PO; +CLON0.5T PO; +COLA100C PO; +FLON1SPR; +FURO40TA2 PO; +IPRASOL4 INH; +LEVO125T3 PO; +LOPE2TAB3 PO; +MAPA650T PO; +NORT75CA2 PO; +OMEP20CA3 PO; +POTA10CA PO; +PRED10TA PO; +QUET5TAB PO; +SIMV20TA2 PO; +TUSSSUS2 PO; +VALS1TAB49 PO; +[UNRECOGNIZED DRUG - CODE] PO
[2016-10-21] MEDS ORDERED: POTASSIUM CHLORIDE INJ 20 MEQ in NS 1,000 ML IV SCH (15:11)
[2016-10-21] MEDS ORDERED: ACETAMINOPHEN TAB 650MG DOSE (2X325MG) PO PRN (15:15)
[2016-10-21] MEDS ORDERED: POLYVINYL ALCOHOL OPHTH SOLN 15 ML(LIQUITEARS) OU PRN (15:30)
--- NOTE | 2016-10-21 15:39 | IPNPDOC ---
Text Note Date of Service The patient was seen on 10/21/16. NOTE Admission History and Physical. PCP: Dr Jean Baptiste ATTENDING: Dr. Mcnair HPI: 70yoF admitted to [facility] for MDD, being medically examined today. Pt has been refusing to eat, drink, take her medications for the past 2 days. She has refused several lab draws, CXR, UA/UC. She will not respond to any questions despite several attempts. PMHx: COPD- O2 2 L at night. H/O Abn Pet scan Hypermetabolic foci Lung 11/24, H/O Lung Ca- Pt opted for no treatment. Has seen Dr Long in the past. Hypertension Allergic rhinitis Hypothyroid GERD Hyperlipidemia Anxiety Depression Reduced hearing Edentulous Unsteady gait-walker PSHX: Left knee arthroplasty Right knee arthroplasty SOCHX: Resides in: Resident at [facility] Marital Status: Kids: 5 Employment: Homemaker Tobacco use: History of smoking 50 years per patient. She does not know how much she currently smokes. ETOH: Denies Illicit Drugs: Denies IV Drug Use: Denies Tattoos done unprofessionally: Denies HCP Yamel Judy [phone]. FAMHX: Mother: , lung cancer Father: , MS at 51 Siblings: 3 sisters Alive, unknown Children: 4 Alive, well. One adopted child , MVA. Unexpected deaths due to medical reasons: None. ROS: Pt is alert, awake however she will not respond to questions at this time. PE: Exam is limited related to lack of pt cooperation. GEN: 70yoF, appears stated age. Alert. HEENT: Normocephalic, atraumatic. Pupils are equal, round, and reactive to light. Extraocular movements are intact. Sclera are nonicteric. Conjunctiva without injection. Nose midline. Hearing aids are removed and at the bedside, EACs both patent BL. No facial asymmetry. mucous membranes appear to be dry. dentures are removed and at the bedside. Pharynx pink and moist, no cobblestoning. Neck supple, trachea midline. No lymphadenopathy or thyromegaly appreciated. CHEST: Regular rate and rhythm, +S1, +S2 LUNGS: Clear to auscultation bilaterally. No wheezes, rales, or rhonchi. Breathing appears symmetric and easy. Patient refuses to speak but is alert. No accessory muscle use. ABD: Difficult related to patient cooperation however no apparent tenderness. EXT: Pulses 2+ bilaterally dorsalis pedis and radial. No lower extremity edema appreciated. SKIN: [place], dry, warm. Capillary refill <2sec. No rashes. NEURO: Alert. No focal deficits appreciated. EKG: SINUS RHYTHM POSSIBLE LEFT ATRIAL ENLARGEMENT MODERATE INTRAVENTRICULAR CONDUCTION DELAY ILBBB MODERATE ST DEPRESSION NO PRIOR A&P: 70yoF admitted to [facility] for MDD transferred today to /S related to dehydration and UTI. 1. Decreased by mouth intake/dehydration. IV fluids initiated at 125 mL per hour. 2. Hypokalemia. Potassium supplementation added to IV fluids. Recheck labs in a.m. 3. Leukocytosis- likely UTI. Screen for influenza as patient has been exposed on [facility]. Recheck labs including LA. Request UA/urine culture, patient has repeatedly refused. Request BC x2. Initiate meropenem IV based on review of previous UC sensitivities as well as patient's allergies. Pending repeat cultures, adjust accordingly. 4. Psych. Plan per Psychiatry. EKG on file. One-to-one observation. Spoke with psychiatry, continue with nortriptyline 75 mg at bedtime, Klonopin 0.25 mg by mouth twice a day as needed, Seroquel 25 mg by mouth twice a day, Trintellix [address] by [address] daily[address] CT scan brain is requested. Dr Valente will follow. 5. Unsteady gait. Patient states she uses a walker for ambulation. physical therapy evaluation 10/19/16 indicated patient mobility was safe. 6. History of lung cancer. More history has been obtained from caretakers at [facility] and patient has apparently previously declined any further treatment for history of lung cancer. Monitor. CT scan brain is requested. Pt had PET 11/[address] Long. 7. COPD. Patient uses O2 2 L at night. Continue prednisone 10 mg daily. Continue Advair 250/50 one puff twice a day, DuoNeb every 6 hours and every 2 hours as needed. 8. Hypertension. Continue aspirin 81 mg daily, Zebeta 2.5 mg daily with hold paramters. (hydrochlorothiazide 3.125 mg daily, Lasix 40 mg daily, potassium po meq daily, and Diovan 40 mg daily on hold at this time related to poor oral intake). 9. Hypothyroid. Continue supplement. 10. GERD. Continue Prilosec 20 mg daily. 11. Hyperlipidemia. Continue Zocor 20 mg daily. 12. Staff member present throughout examination, Arabella CLAUDIO. 13. Patient is discussed with Dr. Weston. Multiple attempts were made to contact daughter, however we were unsuccessful. Shanika De Souza Oct 21, 2016 15:39 TRISTEN WESTON MD Oct 31, 2016 13:14
[2016-10-21] MEDS ORDERED: clonazePAM 0.5 MG TAB PO PRN (16:00)
[2016-10-21] MEDS ORDERED: NICO21DI5 TD (17:43)
[2016-10-21] MEDS ORDERED: MAALSUS20 PO (17:43)
[2016-10-21] MEDS ORDERED: MACR100C3 PO (17:43)
[2016-10-21] MEDS ORDERED: MILKSUS PO (17:43)
[2016-10-21] MEDS ORDERED: KCL 20MEQ in NS 1000ML 1,000 ML IV SCH (19:13)
[2016-10-21 19:21] LABS: BASO % 0.2 % (0.0-1.0); EOS # 0.2 K/mm3 (0.0-0.50); EOS % 1.4 % (0.0-3.0); LARGE UNSTAINED CELL # 0.2 K/mm3 (0.0-0.4); LARGE UNSTAINED CELL % 1.1 % (0.0-4.0); LYMPH # 1.3 K/mm3 (1.5-4.5); LYMPH % 7.2 % (24.0-44.0); MEAN CORPUSCULAR HGB CONC 32.6 g/dl (32.0-36.5); MONO # 0.8 K/mm3 (0.0-0.8); MONO % 4.9 % (0.0-5.0); NEUTROPHILS # 13.5 K/mm3 (1.8-7.7); NEUTROPHILS % 85.1 % (36.0-66.0); PLATELET COUNT, AUTOMATED 360 k/mm3 (150-450); RED CELL DISTRIBUTION WIDTH 15.5 % (11.5-14.5); WHITE BLOOD COUNT 15.8 K/mm3 (4.0-10.0)
[2016-10-21 19:41] LABS: ALBUMIN 4.1 GM/DL (3.2-5.2); ALBUMIN/GLOBULIN RATIO 1.11 (1.00-1.93); BILIRUBIN,TOTAL 1.1 MG/DL (0.2-1.0); CALCIUM LEVEL 9.5 MG/DL (8.8-10.2); CREATININE FOR GFR 2.53 MG/DL (0.55-1.02); GLOMERULAR FILTRATION RATE 19.9 (>39); MAGNESIUM LEVEL 2.4 MG/DL (1.8-2.4); POTASSIUM SERUM 4.2 MEQ/L (3.5-5.1); TOTAL PROTEIN 7.8 GM/DL (6.4-8.2)
--- NOTE | 2016-10-21 20:02 | REP ---
CT BRAIN WITHOUT CONTRAST: 10/21/2016. Clinical history: Altered mental status. There are no prior pertinent studies. Technique: Noncontrast images with soft tissue and bone windows reviewed for each slice level. Findings: Ventricles are midline, symmetric and dilated in proportion to the diffuse cerebral atrophy. All of this is age appropriate. Atrophy is greatest in the temporal and frontal lobes. Basal ganglia were symmetric. There is heterogeneous low attenuation change in white matter tracts bilaterally suggesting some chronic small vessel white matter ischemic changes of aging. No vascular territory infarct, intra or extra-axial hemorrhage, mass, mass effect or edema. Brainstem was unremarkable. Cerebellum shows atrophy but no visible mass. No posterior fossa bleed. Mastoids, visualized sinuses, skull base and calvarium are without fracture or focal abnormality. There are vascular calcifications in the carotid siphons. Impression: 1. Atrophy with some chronic small vessel white matter ischemic changes of aging, without acute infarct, intracranial hemorrhage, mass, mass effect or edema. 2. The skull base, calvarium, visualized sinuses and mastoids unremarkable. Vascular calcifications of the carotid siphons noted. Signed by Aurelio Cochran MD 10/21/2016 08:06 P
[2016-10-21] MEDS: IPRATROPIUM 0.5MG/ALBUTEROL 2.5MG INH SOL UD 3ML (DUONEB)(J7620) NEB SCH (20:19)
[2016-10-21] MEDS: SIMVASTATIN 20 MG TAB PO SCH (20:26)
[2016-10-21] MEDS: DOCUSATE SODIUM 100 MG CAP PO SCH (20:26)
[2016-10-21] MEDS: MEROPENEM INJ 1 GM in D5W MINI-BAG PLUS 100 ML IV SCH (20:26)
[2016-10-21] MEDS: KCL 20MEQ in NS 1000ML 1,000 ML IV SCH (20:26)
[2016-10-21] MEDS ORDERED: clonazePAM 0.5 MG TAB PO SCH (21:00)
[2016-10-21] MEDS: ADVAIR DISKUS 250/50 INH PWD INH SCH (21:00)
[2016-10-21 22:00] VITALS: BP 107/56
[2016-10-21] MEDS: QUEtiapine FUMARATE 25 MG TAB PO SCH (23:01)
[2016-10-21] MEDS: NORTRIPTYLINE 25 MG CAP PO SCH (23:01)
[2016-10-22 00:25] VITALS: BP 112/50
[2016-10-22] MEDS: IPRATROPIUM 0.5MG/ALBUTEROL 2.5MG INH SOL UD 3ML (DUONEB)(J7620) NEB SCH ×5 (02:00→23:41)
[2016-10-22] MEDS: KCL 20MEQ in NS 1000ML 1,000 ML IV SCH ×3 (04:13→19:30)
[2016-10-22] MEDS: MEROPENEM INJ 1 GM in D5W MINI-BAG PLUS 100 ML IV SCH ×3 (04:14→20:15)
[2016-10-22 05:52] LABS: MEAN CORPUSCULAR HEMOGLOBIN 30.2 pg (27.0-33.0); MEAN CORPUSCULAR HGB CONC 30.9 g/dl (32.0-36.5); MEAN CORPUSCULAR VOLUME 97.7 fl (80.0-96.0); RED CELL DISTRIBUTION WIDTH 15.3 % (11.5-14.5); WHITE BLOOD COUNT 13.1 K/mm3 (4.0-10.0)
[2016-10-22] MEDS: LEVOTHYROXINE 0.125 MG TAB (125 MCG) PO SCH (05:55)
[2016-10-22 06:00] VITALS: BP 101/60
[2016-10-22 06:11] LABS: BILIRUBIN,TOTAL 0.8 MG/DL (0.2-1.0); CALCIUM LEVEL 8.8 MG/DL (8.8-10.2); CREATININE FOR GFR 2.19 MG/DL (0.55-1.02); GLOMERULAR FILTRATION RATE 23.5 (>39); POTASSIUM SERUM 4.1 MEQ/L (3.5-5.1); TOTAL PROTEIN 6.7 GM/DL (6.4-8.2)
[2016-10-22 06:35] LABS: ALBUMIN/GLOBULIN RATIO 0.91 (1.00-1.93)
[2016-10-22 06:38] LABS: ALBUMIN 3.2 GM/DL (3.2-5.2)
[2016-10-22] MEDS: ADVAIR DISKUS 250/50 INH PWD INH SCH ×2 (07:21→21:20)
[2016-10-22] MEDS: FLUTICASONE PROP 0.05% NASAL SPRAY 16 GM (FLONASE) SCH (09:09)
[2016-10-22] MEDS: TRINTELLIX 5 MG PO SCH (09:09)
[2016-10-22] MEDS: CALCIUM CARBONATE 500 MG CHEW U/D PO SCH (09:09)
[2016-10-22] MEDS: OMEPRAZOLE 20 MG CAP PO SCH (09:10)
[2016-10-22] MEDS: CYANOCOBALAMIN 500 MCG TAB PO SCH (09:10)
[2016-10-22] MEDS: ASPIRIN 81 MG CHEW TABLET PO SCH (09:10)
[2016-10-22] MEDS: QUEtiapine FUMARATE 25 MG TAB PO SCH ×2 (09:10→20:16)
[2016-10-22] MEDS: clonazePAM 0.5 MG TAB PO SCH ×2 (09:10→20:16)
[2016-10-22] MEDS: predniSONE 10 MG TAB PO SCH (09:10)
[2016-10-22] MEDS: BISOPROLOL FUM 2.5 MG PER 1/2TAB PO SCH (09:11)
[2016-10-22] MEDS: NORTRIPTYLINE 25 MG CAP PO SCH (20:15)
[2016-10-22] MEDS: SIMVASTATIN 20 MG TAB PO SCH (20:16)
[2016-10-22] MEDS: DOCUSATE SODIUM 100 MG CAP PO SCH (20:16)
[2016-10-22 22:00] VITALS: BP 148/65
[2016-10-23] MEDS: MEROPENEM INJ 1 GM in D5W MINI-BAG PLUS 100 ML IV SCH ×3 (03:10→21:15)
[2016-10-23 06:00] VITALS: BP 153/69
[2016-10-23] MEDS: KCL 20MEQ in NS 1000ML 1,000 ML IV SCH (06:07)
[2016-10-23] MEDS: LEVOTHYROXINE 0.125 MG TAB (125 MCG) PO SCH (06:07)
[2016-10-23 07:01] LABS: MEAN CORPUSCULAR HEMOGLOBIN 31.7 pg (27.0-33.0); MEAN CORPUSCULAR HGB CONC 32.6 g/dl (32.0-36.5); MEAN CORPUSCULAR VOLUME 97.3 fl (80.0-96.0); RED CELL DISTRIBUTION WIDTH 15.3 % (11.5-14.5); WHITE BLOOD COUNT 10.2 K/mm3 (4.0-10.0)
[2016-10-23] MEDS: ADVAIR DISKUS 250/50 INH PWD INH SCH ×2 (07:14→19:38)
[2016-10-23] MEDS: IPRATROPIUM 0.5MG/ALBUTEROL 2.5MG INH SOL UD 3ML (DUONEB)(J7620) NEB SCH ×3 (07:14→19:38)
--- NOTE | 2016-10-23 07:21 | IPNPDOC ---
Subjective General Date Seen The patient was seen on 10/22/16. Subjective Chief Complaint/HPI The patient is a 70-year-old female admitted with a reason for visit of Uti/ Dehydration. Events since last encounter feeling better this am, had some breakfast, no fever or chills, no chest pain or sob , no abdominal pain , nausea or vomiting. Objective Physical Examination General Exam: Positive: Alert, No Acute Distress Eye Exam: Positive: Conjunctiva & lids normal, EOMI, PERRLA, Negative: Sclera icteric ENT Exam: Positive: Atraumatic, Mucous membr. moist/pink, Pharynx Normal Neck Exam: Positive: Supple, Negative: JVD, thyromegaly Chest Exam: Positive: Clear to auscultation, Normal air movement Heart Exam: Positive: Normal S1, Normal S2, Rate Normal, Regular Rhythm, Negative: Murmurs, Rubs Abdomen Exam: Positive: Normal bowel sounds, Soft, Negative: Hepatospenomegaly, Tenderness Extremity Exam: Positive: Normal pulses, Negative: Clubbing, Cyanosis, Edema Assessment /Plan Problems Problems: (1) ROYER (acute kidney injury) Status: Acute Problem Text: due to poor oral intake and dehydration will continue with IVF (2) UTI (urinary tract infection) Status: Acute Problem Text: elisabeth continue with meropenem. 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 patient was not a candidate for surgery and opted not to undergo any chemotherapy so the mass was not biopsied to establish definitive diagnosis. (9) GERD (gastroesophageal reflux disease) Status: Chronic Plan/VTE VTE Prophylaxis Ordered?: Yes VS, I&O, 24H, Fishbone Vital Signs/I&O Vital Signs Date Time Temp Pulse Resp B/P Pulse Ox O2 Delivery O2 Flow Rate FiO2 10/22/16 09:11 96 101/60 10/22/16 08:00 Room Air 10/22/16 06:00 99.0 18 94 I&O- Last 24 Hours up to 6 AM 10/22/16 06:00 Intake Total 1440 ml Output Total 200 ml Balance 1240 ml Laboratory Data 24H LABS Laboratory Tests 2 10/21/16 19:08: Blood Urea Nitrogen 37H, Creatinine 2.53#H, Sodium Level 143, Potassium Level 4.2#, Chloride Level 103, Carbon Dioxide Level 25, Calcium Level 9.5, Aspartate Amino Transf (AST/SGOT) 32, Alanine Aminotransferase (ALT/SGPT) 77, Alkaline Phosphatase 102, Total Bilirubin 1.1H, Total Protein 7.8, Albumin 4.1, Albumin/ Globulin Ratio 1.11, Anion Gap 15, White Blood Count 15.8H, Red Blood Count 4.90 , Hemoglobin 15.2, Hematocrit 46.5, Mean Corpuscular Volume 95.0, Mean Corpuscular Hemoglobin 31.0, Mean Corpuscular Hemoglobin Concent 32.6, Red Cell Distribution Width 15.5H, Platelet Count 360, Neutrophils (%) (Auto) 85.1H, Lymphocytes (%) (Auto) 7.2L, Monocytes (%) (Auto) 4.9, Eosinophils (%) (Auto) 1.4, Basophils (%) (Auto) 0.2, Neutrophils # (Auto) 13.5H, Lymphocytes # (Auto) 1.3L, Monocytes # (Auto) 0.8, Eosinophils # (Auto) 0.2, Basophils # (Auto) 0.0, Glomerular Filtration Rate 19.9L, Lactic Acid (Sepsis) 2.6*H, Large Unclassified Cells # 0.2, Large Unclassified Cells % 1.1, Magnesium Level 2.4 10/21/16 23:32: Lactic Acid Level 3.1*H 10/22/16 05:01: Urine Amorphous Sediment , Urine Appearance CLOUDYH, Urine Color LALI, Urine pH 5.0, Urine Specific [place] 1.017, Urine Protein 1+H, Urine Glucose (UA) 1+H , Urine Ketones 1+H, Urine Urobilinogen 2.0H, Urine Bilirubin NEGATIVE, Urine Leukocyte Esterase TRACEH, Urine Bacteria (Auto) 1+H, Urine Blood NEGATIVE, Urine Calcium Carbonate Cryst(Auto) , Urine Calcium Oxalate Cryst (Auto) , Urine Calcium Phosphate Enma (Auto) , Urine Cellular Casts , Urine Cystine Crystals , Urine Granular Casts (Auto) , Urine Hyaline Casts (Auto) 86, Urine Leucine Crystals , Urine Mucus (Auto) SMALL, Urine Nitrite NEGATIVE, Urine Oval Fat Bodies (Auto) , Urine RBC (Auto) 2, Urine Renal Epithelial Cells , Urine Sperm (Auto) , Urine Squamous Epithelial Cells 1, Urine Transitional Epithelial Cells , Urine Trichomonas (Auto) , Urine Triple Phosphate Cryst (Auto) , Urine Tyrosine Crystals , Urine Uric Acid Crystals (Auto) , Urine WBC (Auto) 26H, Urine Waxy Casts (Auto) , Urine Yeast-Like Cells (Auto) 10/22/16 05:43: Blood Urea Nitrogen 44H, Creatinine 2.19H, Sodium Level 145, Potassium Level 4.1 , Chloride Level 107, Carbon Dioxide Level 26, Calcium Level 8.8, Aspartate Amino Transf (AST/SGOT) 24, Alanine Aminotransferase (ALT/SGPT) 61, Alkaline Phosphatase 85, Total Bilirubin 0.8, Total Protein 6.7, Albumin 3.2#, Albumin/ Globulin Ratio 0.91L, Anion Gap 12, Glomerular Filtration Rate 23.5L, Lactic Acid (Sepsis) 1.8 CBC/BMP Laboratory Tests 10/21/16 19:08 Calcium Level 9.5, Aspartate Amino Transf (AST/SGOT) 32, Alanine Aminotransferase (ALT/SGPT) 77, Alkaline Phosphatase 102, Total Bilirubin 1.1 H , Total Protein 7.8, Albumin 4.1, Red Blood Count 4.90, Mean Corpuscular Volume 95.0, Mean Corpuscular Hemoglobin 31.0, Mean Corpuscular Hemoglobin Concent 32.6 , Red Cell Distribution Width 15.5 H, Neutrophils (%) (Auto) 85.1 H, Lymphocytes (%) (Auto) 7.2 L, Monocytes (%) (Auto) 4.9, Eosinophils (%) (Auto) 1.4, Basophils (%) (Auto) 0.2, Neutrophils # (Auto) 13.5 H, Lymphocytes # (Auto ) 1.3 L, Monocytes # (Auto) 0.8, Eosinophils # (Auto) 0.2, Basophils # (Auto) 0.0 10/22/16 05:43 Calcium Level 8.8, Aspartate Amino Transf (AST/SGOT) 24, Alanine Aminotransferase (ALT/SGPT) 61, Alkaline Phosphatase 85, Total Bilirubin 0.8, Total Protein 6.7, Albumin 3.2 #, Red Blood Count 4.41, Mean Corpuscular Volume 97.7 H, Mean Corpuscular Hemoglobin 30.2, Mean Corpuscular Hemoglobin Concent 30.9 L, Red Cell Distribution Width 15.3 H Microbiology Microbiology 10/21/16 Blood Culture, Received Pending 10/21/16 Influenza Virus Type A Antigen - Final, Complete 10/21/16 Influenza Virus Type B Antigen - Final, Complete 10/22/16 Urine Culture, Received Pending EVA HITCHCOCK MD Oct 22, 2016 14:33
[2016-10-23 07:26] LABS: ALBUMIN 3.2 GM/DL (3.2-5.2); ALBUMIN/GLOBULIN RATIO 0.94 (1.00-1.93); BILIRUBIN,TOTAL 0.7 MG/DL (0.2-1.0); CREATININE FOR GFR 1.18 MG/DL (0.55-1.02); GLOMERULAR FILTRATION RATE 47.9 (>39); POTASSIUM SERUM 4.3 MEQ/L (3.5-5.1); TOTAL PROTEIN 6.6 GM/DL (6.4-8.2)
[2016-10-23] MEDS: NS 0.45% 1,000 ML IV SCH (07:53)
[2016-10-23] MEDS: CALCIUM CARBONATE 500 MG CHEW U/D PO SCH (08:41)
[2016-10-23] MEDS: CYANOCOBALAMIN 500 MCG TAB PO SCH (08:41)
[2016-10-23] MEDS: OMEPRAZOLE 20 MG CAP PO SCH (08:41)
[2016-10-23] MEDS: predniSONE 10 MG TAB PO SCH (08:41)
[2016-10-23] MEDS: BISOPROLOL FUM 2.5 MG PER 1/2TAB PO SCH (08:43)
[2016-10-23] MEDS: QUEtiapine FUMARATE 25 MG TAB PO SCH ×2 (08:44→21:15)
[2016-10-23] MEDS: TRINTELLIX 5 MG PO SCH (08:44)
[2016-10-23] MEDS: ASPIRIN 81 MG CHEW TABLET PO SCH (08:44)
[2016-10-23] MEDS: clonazePAM 0.5 MG TAB PO SCH ×2 (08:44→21:15)
[2016-10-23] MEDS: FLUTICASONE PROP 0.05% NASAL SPRAY 16 GM (FLONASE) SCH (08:45)
[2016-10-23 14:00] VITALS: BP 93/53
[2016-10-23] MEDS: NORTRIPTYLINE 25 MG CAP PO SCH (21:00)
[2016-10-23] MEDS: SIMVASTATIN 20 MG TAB PO SCH (21:15)
[2016-10-23] MEDS: DOCUSATE SODIUM 100 MG CAP PO SCH (21:15)
[2016-10-23 22:00] VITALS: BP 124/59
[2016-10-24] MEDS: IPRATROPIUM 0.5MG/ALBUTEROL 2.5MG INH SOL UD 3ML (DUONEB)(J7620) NEB SCH ×4 (02:08→19:58)
[2016-10-24] MEDS: NS 0.45% 1,000 ML IV SCH (03:50)
[2016-10-24] MEDS: MEROPENEM INJ 1 GM in D5W MINI-BAG PLUS 100 ML IV SCH (03:50)
[2016-10-24] MEDS: LEVOTHYROXINE 0.125 MG TAB (125 MCG) PO SCH (05:53)
[2016-10-24 06:00] VITALS: BP 106/55
[2016-10-24 06:44] LABS: MEAN CORPUSCULAR HEMOGLOBIN 30.9 pg (27.0-33.0); MEAN CORPUSCULAR HGB CONC 31.3 g/dl (32.0-36.5); MEAN CORPUSCULAR VOLUME 98.6 fl (80.0-96.0); RED CELL DISTRIBUTION WIDTH 15.5 % (11.5-14.5)
[2016-10-24 07:00] LABS: ALBUMIN 2.7 GM/DL (3.2-5.2); ALBUMIN/GLOBULIN RATIO 0.87 (1.00-1.93); ALKALINE PHOSPHATASE 79 U/L (45-117); ALT/SGPT 51 U/L (12-78); ANION GAP 11 MEQ/L (8-16); AST/SGOT 31 U/L (15-37); BILIRUBIN,TOTAL 0.7 MG/DL (0.2-1.0); BLOOD UREA NITROGEN 19 MG/DL (7-18); CALCIUM LEVEL 8.4 MG/DL (8.8-10.2); CARBON DIOXIDE LEVEL 22 MEQ/L (21-32); CHLORIDE LEVEL 112 MEQ/L (98-107); CREATININE FOR GFR 0.78 MG/DL (0.55-1.02); GLOMERULAR FILTRATION RATE > 60.0 (>39); GLUCOSE, FASTING 76 MG/DL (83-110); POTASSIUM SERUM 3.9 MEQ/L (3.5-5.1); SODIUM LEVEL 145 MEQ/L (136-145); TOTAL PROTEIN 5.8 GM/DL (6.4-8.2)
[2016-10-24] MEDS: ADVAIR DISKUS 250/50 INH PWD INH SCH ×2 (07:18→19:58)
[2016-10-24] MEDS: predniSONE 10 MG TAB PO SCH (08:56)
[2016-10-24] MEDS: BISOPROLOL FUM 2.5 MG PER 1/2TAB PO SCH (08:56)
[2016-10-24] MEDS: CALCIUM CARBONATE 500 MG CHEW U/D PO SCH (08:57)
[2016-10-24] MEDS: CYANOCOBALAMIN 500 MCG TAB PO SCH (08:57)
[2016-10-24] MEDS: QUEtiapine FUMARATE 25 MG TAB PO SCH ×2 (08:57→20:36)
[2016-10-24] MEDS: OMEPRAZOLE 20 MG CAP PO SCH (08:57)
[2016-10-24] MEDS: CEPHALEXIN 500 MG CAP PO SCH ×2 (08:57→20:37)
[2016-10-24] MEDS: TRINTELLIX 5 MG PO SCH (08:58)
[2016-10-24] MEDS: ASPIRIN 81 MG CHEW TABLET PO SCH (08:58)
[2016-10-24] MEDS: FLUTICASONE PROP 0.05% NASAL SPRAY 16 GM (FLONASE) SCH (08:58)
[2016-10-24] MEDS: clonazePAM 0.5 MG TAB PO SCH ×2 (09:00→20:36)
[2016-10-24 14:00] VITALS: BP 124/58
[2016-10-24] MEDS: SIMVASTATIN 20 MG TAB PO SCH (20:36)
[2016-10-24] MEDS: NORTRIPTYLINE 25 MG CAP PO SCH (20:37)
[2016-10-24] MEDS: DOCUSATE SODIUM 100 MG CAP PO SCH (20:37)
[2016-10-24 22:00] VITALS: BP 134/89
--- NOTE | 2016-10-24 23:58 | IPNPDOC ---
Subjective General Date Seen The patient was seen on 10/24/16. Subjective Chief Complaint/HPI The patient is a 70-year-old female admitted with a reason for visit of Uti/ Dehydration. Was refusing to talk today. Denied pain or dysuria. Would not respond to my other questions. General: Reports: ROS Unobtainable Objective Physical Examination General Exam: Positive: Alert, No Acute Distress Eye Exam: Positive: Conjunctiva & lids normal, EOMI, PERRLA, Negative: Sclera icteric ENT Exam: Positive: Atraumatic, Mucous membr. moist/pink, Pharynx Normal Neck Exam: Positive: Supple, Negative: JVD, thyromegaly Chest Exam: Positive: Clear to auscultation, Normal air movement Heart Exam: Positive: Normal S1, Normal S2, Rate Normal, Regular Rhythm, Negative: Murmurs, Rubs Abdomen Exam: Positive: Normal bowel sounds, Soft, Negative: Hepatospenomegaly, Tenderness Extremity Exam: Positive: Normal pulses, Negative: Clubbing, Cyanosis, Edema Assessment /Plan Problems Problems: (1) DAYRON (acute kidney injury) Status: Acute Problem Text: due to poor oral intake and dehydration BUN and creatinine improved today. Pt is refusing to drink and eat at the moment We will d/c fluids today and see if pt is willing to drink. If pt is able to eat and drink, we will consider transfer back to [facility] Item Value Date Time Blood Urea Nitrogen 37 MG/DL H 10/23/16 0641 Creatinine 1.18 MG/DL H 10/23/16 0641 Blood Urea Nitrogen 19 MG/DL H 10/24/16 0614 Creatinine 0.78 MG/DL 10/24/16 0614 (2) UTI (urinary tract infection) Status: Acute Problem Text: elisabeth continue with meropenem. Denied dysuria today. (3) Major depression Status: Acute Problem Text: will continue with psychiatry recommendations, one UTi and Dayron is treated patient will be transferred back to [facility] We will continue with sitter for her suicidality. Was unable to access if she has current suicidal ideations. 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 patient was not a candidate for surgery and opted not to undergo any chemotherapy so the mass was not biopsied to establish definitive diagnosis. (9) GERD (gastroesophageal reflux disease) Status: Chronic Plan/VTE VTE Prophylaxis Ordered?: Yes VS, I&O, 24H, Fishbone Vital Signs/I&O Vital Signs Date Time Temp Pulse Resp B/P Pulse Ox O2 Delivery O2 Flow Rate FiO2 10/24/16 09:48 Room Air 10/24/16 08:56 95 106/55 10/24/16 06:00 98.8 20 90 I&O- Last 24 Hours up to 6 AM 10/24/16 06:00 Intake Total 1170 ml Output Total 300 ml Balance 870 ml Laboratory Data 24H LABS Laboratory Tests 2 10/24/16 06:14: Blood Urea Nitrogen 19H, Creatinine 0.78, Sodium Level 145, Potassium Level 3.9 , Chloride Level 112H, Carbon Dioxide Level 22, Calcium Level 8.4L, Aspartate Amino Transf (AST/SGOT) 31, Alanine Aminotransferase (ALT/SGPT) 51, Alkaline Phosphatase 79, Total Bilirubin 0.7, Total Protein 5.8L, Albumin 2.7L, Albumin/ Globulin Ratio 0.87L, Anion Gap 11, Glomerular Filtration Rate > 60.0 CBC/BMP Laboratory Tests 10/24/16 06:14 Calcium Level 8.4 L, Aspartate Amino Transf (AST/SGOT) 31, Alanine Aminotransferase (ALT/SGPT) 51, Alkaline Phosphatase 79, Total Bilirubin 0.7, Total Protein 5.8 L, Albumin 2.7 L, Red Blood Count 3.50 L, Mean Corpuscular Volume 98.6 H, Mean Corpuscular Hemoglobin 30.9, Mean Corpuscular Hemoglobin Concent 31.3 L, Red Cell Distribution Width 15.5 H Microbiology Microbiology 10/21/16 Blood Culture - Preliminary, Resulted No Growth after 48 hours. All Specime... 10/21/16 Influenza Virus Type A Antigen - Final, Complete 10/21/16 Influenza Virus Type B Antigen - Final, Complete 10/22/16 Urine Culture - Final, Complete Strep Agalactiae Group B FACUNDO BUCKLEY DO Oct 24, 2016 10:12
[2016-10-25] MEDS: IPRATROPIUM 0.5MG/ALBUTEROL 2.5MG INH SOL UD 3ML (DUONEB)(J7620) NEB SCH ×4 (02:00→19:21)
[2016-10-25] MEDS: LEVOTHYROXINE 0.125 MG TAB (125 MCG) PO SCH (05:56)
[2016-10-25 06:00] VITALS: BP_SYST 108; BP_SYST 136; BP_DIAS 51; BP_DIAS 75
[2016-10-25 07:24] LABS: ALBUMIN 2.9 GM/DL (3.2-5.2); ALBUMIN/GLOBULIN RATIO 0.83 (1.00-1.93); ALKALINE PHOSPHATASE 87 U/L (45-117); ALT/SGPT 56 U/L (12-78); ANION GAP 9 MEQ/L (8-16); AST/SGOT 34 U/L (15-37); BILIRUBIN,TOTAL 0.8 MG/DL (0.2-1.0); BLOOD UREA NITROGEN 15 MG/DL (7-18); CALCIUM LEVEL 8.4 MG/DL (8.8-10.2); CARBON DIOXIDE LEVEL 26 MEQ/L (21-32); CHLORIDE LEVEL 105 MEQ/L (98-107); GLOMERULAR FILTRATION RATE > 60.0 (>39); GLUCOSE, FASTING 115 MG/DL (83-110); POTASSIUM SERUM 3.5 MEQ/L (3.5-5.1); SODIUM LEVEL 140 MEQ/L (136-145); TOTAL PROTEIN 6.4 GM/DL (6.4-8.2)
[2016-10-25 07:26] LABS: MEAN CORPUSCULAR HEMOGLOBIN 31.6 pg (27.0-33.0); MEAN CORPUSCULAR HGB CONC 32.4 g/dl (32.0-36.5); MEAN CORPUSCULAR VOLUME 97.7 fl (80.0-96.0); RED CELL DISTRIBUTION WIDTH 15.2 % (11.5-14.5); WHITE BLOOD COUNT 9.4 K/mm3 (4.0-10.0)
[2016-10-25] MEDS: ADVAIR DISKUS 250/50 INH PWD INH SCH ×2 (08:49→19:21)
[2016-10-25] MEDS: BISOPROLOL FUM 2.5 MG PER 1/2TAB PO SCH ×3 (09:00→14:23)
[2016-10-25] MEDS: clonazePAM 0.5 MG TAB PO SCH ×2 (09:46→20:23)
[2016-10-25] MEDS: CALCIUM CARBONATE 500 MG CHEW U/D PO SCH (09:46)
[2016-10-25] MEDS: CYANOCOBALAMIN 500 MCG TAB PO SCH (09:46)
[2016-10-25] MEDS: OMEPRAZOLE 20 MG CAP PO SCH (09:46)
[2016-10-25] MEDS: CEPHALEXIN 500 MG CAP PO SCH ×2 (09:47→20:22)
[2016-10-25] MEDS: predniSONE 10 MG TAB PO SCH (09:47)
[2016-10-25] MEDS: ASPIRIN 81 MG CHEW TABLET PO SCH (09:47)
[2016-10-25] MEDS: FLUTICASONE PROP 0.05% NASAL SPRAY 16 GM (FLONASE) SCH (09:47)
[2016-10-25] MEDS: QUEtiapine FUMARATE 25 MG TAB PO SCH ×2 (09:59→20:23)
[2016-10-25] MEDS: TRINTELLIX 5 MG PO SCH (09:59)
[2016-10-25 13:43] VITALS: BP 140/70
[2016-10-25 14:00] VITALS: BP 114/59
[2016-10-25 15:45] VITALS: BP 110/60
[2016-10-25] MEDS: IPRATROPIUM 0.5MG/ALBUTEROL 2.5MG INH SOL UD 3ML (DUONEB)(J7620) NEB PRN (16:23)
[2016-10-25] MEDS ORDERED: ISOVUE-370 76% 100ML VIAL (Q9967) As Ordered ONE (16:55)
--- NOTE | 2016-10-25 17:16 | REP ---
Clinical: Hypoxia, tachycardia and chest pain. Technique: Axial contrast enhanced images from the thoracic inlet to the upper abdomen using 100 ml Isovue 370 intravenous contrast material with coronal and sagittal re-formations. Findings: Satisfactory enhancement of the pulmonary vasculature is achieved and no filling defects are identified to suggest pulmonary embolus. Moderate right pleural effusion and right middle lobe consolidation is appreciated. Underlying chronic COPD/interstitial changes are noted. Atherosclerotic changes to the thoracic aorta and coronary arteries noted. No cardiomegaly or pericardial effusion appreciated. No adenopathy. Degenerative changes the musculoskeletal structures without focal osseous abnormality. An upper abdomen demonstrates bilateral adrenal nodules likely representing adenomas measuring 2.2 cm on the left and 1.2 cm on the right. Impression: No evidence for pulmonary embolus. Moderate pleural effusion and right middle lobe consolidation. Chronic COPD/interstitial changes. Bilateral adrenal lesions likely representing adenomas. Signed by Manan Milligan MD 10/25/2016 05:08 P
[2016-10-25] MEDS: DOCUSATE SODIUM 100 MG CAP PO SCH (20:22)
[2016-10-25] MEDS: NORTRIPTYLINE 25 MG CAP PO SCH (20:22)
[2016-10-25] MEDS: SIMVASTATIN 20 MG TAB PO SCH (20:23)
[2016-10-25 22:00] VITALS: BP 103/55
--- NOTE | 2016-10-25 23:57 | IPNPDOC ---
Subjective General Date Seen The patient was seen on 10/25/16. Subjective Chief Complaint/HPI The patient is a 70-year-old female admitted with a reason for visit of Uti/ Dehydration. Pt reports that she is doing better today. Has eaten breakfast and in hydrating. Denies any dysuria. Denies suicidal or homicidal ideations. General: Denies: Chills, Fatigue, Malaise, Night Sweats Constitutional: Denies: Chills, Fever, Night Sweats Pulmonary: Denies: Cough, Dyspnea Cardiovascular: Denies: Chest Pain, Lt Headedness, Orthopnea, Palpitations, Paroxysmal Noc. Dyspnea Gastrointestinal: Denies: Abdominal Pain, Constipation, Diarrhea, Nausea, Vomiting Genitourinary: Denies: Dysuria, Frequency, Incontinence, Retention Musculoskeletal: Denies: Back Pain, Joint Pain, Muscle Pain, Neck Pain, Spasms Psych: Reports: Anxiety, Denies: Thoughts of Harming Other, Thoughts of Self Harm Objective Physical Examination General Exam: Positive: Alert, No Acute Distress Eye Exam: Positive: Conjunctiva & lids normal, EOMI, PERRLA, Negative: Sclera icteric ENT Exam: Positive: Atraumatic, Mucous membr. moist/pink, Pharynx Normal Neck Exam: Positive: Supple, Negative: JVD, thyromegaly Chest Exam: Positive: Clear to auscultation, Normal air movement Heart Exam: Positive: Normal S1, Normal S2, Rate Normal, Regular Rhythm, Negative: Murmurs, Rubs Abdomen Exam: Positive: Normal bowel sounds, Soft, Negative: Hepatospenomegaly, Tenderness Extremity Exam: Positive: Normal pulses, Negative: Clubbing, Cyanosis, Edema Assessment /Plan Problems Problems: (1) DAYRON (acute kidney injury) Status: Resolved Problem Text: due to poor oral intake and dehydration BUN and creatinine improved today. Pt has been eating and drinking since yesterday (2) UTI (urinary tract infection) Status: Resolved Problem Text: Symptoms have resolved. Currently on Keflex Denied dysuria today. (3) Major depression Status: Acute Problem Text: will continue with psychiatry recommendations, one UTi and Dayron is treated patient will be transferred back to [facility] We will continue with sitter for her suicidality. Was unable to access if she has current suicidal ideations. 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 patient was not a candidate for surgery and opted not to undergo any chemotherapy so the mass was not biopsied to establish definitive diagnosis. (9) GERD (gastroesophageal reflux disease) Status: Chronic Plan/VTE VTE Prophylaxis Ordered?: Yes VS, I&O, 24H, Fishbone Vital Signs/I&O Vital Signs Date Time Temp Pulse Resp B/P Pulse Ox O2 Delivery O2 Flow Rate FiO2 10/25/16 06:00 99.6 113 18 108/51 90 Room Air I&O- Last 24 Hours up to 6 AM 10/25/16 06:00 Intake Total 160 ml Output Total 550 ml Balance -390 ml Laboratory Data 24H LABS Laboratory Tests 2 10/25/16 06:18: Blood Urea Nitrogen 15, Creatinine 0.80, Sodium Level 140, Potassium Level 3.5, Chloride Level 105, Carbon Dioxide Level 26, Calcium Level 8.4L, Aspartate Amino Transf (AST/SGOT) 34, Alanine Aminotransferase (ALT/SGPT) 56, Alkaline Phosphatase 87, Total Bilirubin 0.8, Total Protein 6.4, Albumin 2.9L, Albumin/ Globulin Ratio 0.83L, Anion Gap 9, Glomerular Filtration Rate > 60.0 CBC/BMP Laboratory Tests 10/25/16 06:18 Calcium Level 8.4 L, Aspartate Amino Transf (AST/SGOT) 34, Alanine Aminotransferase (ALT/SGPT) 56, Alkaline Phosphatase 87, Total Bilirubin 0.8, Total Protein 6.4, Albumin 2.9 L, Red Blood Count 3.79 L, Mean Corpuscular Volume 97.7 H, Mean Corpuscular Hemoglobin 31.6, Mean Corpuscular Hemoglobin Concent 32.4, Red Cell Distribution Width 15.2 H Microbiology Microbiology 10/21/16 Blood Culture - Preliminary, Resulted No Growth after 72 hours. All specime... 10/21/16 Influenza Virus Type A Antigen - Final, Complete 10/21/16 Influenza Virus Type B Antigen - Final, Complete 10/22/16 Urine Culture - Final, Complete Strep Agalactiae Group B FACUNDO BUCKLEY DO Oct 25, 2016 09:01
[2016-10-26] MEDS: IPRATROPIUM 0.5MG/ALBUTEROL 2.5MG INH SOL UD 3ML (DUONEB)(J7620) NEB SCH ×4 (01:21→19:32)
[2016-10-26] MEDS: IPRATROPIUM 0.5MG/ALBUTEROL 2.5MG INH SOL UD 3ML (DUONEB)(J7620) NEB PRN ×2 (02:13→20:01)
[2016-10-26] MEDS: LEVOTHYROXINE 0.125 MG TAB (125 MCG) PO SCH (05:59)
[2016-10-26 06:00] VITALS: BP 124/60
--- NOTE | 2016-10-26 06:26 | IPN ---
DATE: 10/25/2016 I have been asked to see this patient in consult today, by the hospitalist resident, Dr. Garcia. The patient had apparently been transferred to the medical service from inpatient mental health, as she had a urinary tract infection (UTI) and dehydration. I was informed that she was ready to be transferred back. I went to see the patient, I was informed by the nurse there that the patient developed further medical difficulties, and was off the floor, was getting a CT scan, and would not be ready for her transfer back. In view of this, I have suggested that psychiatry is called once she is fully medically . The nurse informed me that the patient had been confused as well. She would need to be free of confusion for at least 24 hours, in other words, not delirious, before she is assessed by psychiatry again when patient is medically stabilized.
[2016-10-26 06:59] LABS: MEAN CORPUSCULAR HEMOGLOBIN 31.5 pg (27.0-33.0); MEAN CORPUSCULAR HGB CONC 32.5 g/dl (32.0-36.5); MEAN CORPUSCULAR VOLUME 96.8 fl (80.0-96.0); RED CELL DISTRIBUTION WIDTH 15.4 % (11.5-14.5); WHITE BLOOD COUNT 5.6 K/mm3 (4.0-10.0)
[2016-10-26 07:04] LABS: ALBUMIN 2.5 GM/DL (3.2-5.2); ALBUMIN/GLOBULIN RATIO 0.86 (1.00-1.93); ALKALINE PHOSPHATASE 82 U/L (45-117); ALT/SGPT 51 U/L (12-78); ANION GAP 8 MEQ/L (8-16); AST/SGOT 28 U/L (15-37); BILIRUBIN,TOTAL 0.4 MG/DL (0.2-1.0); BLOOD UREA NITROGEN 16 MG/DL (7-18); CALCIUM LEVEL 8.2 MG/DL (8.8-10.2); CARBON DIOXIDE LEVEL 27 MEQ/L (21-32); CHLORIDE LEVEL 107 MEQ/L (98-107); CREATININE FOR GFR 0.58 MG/DL (0.55-1.02); GLOMERULAR FILTRATION RATE > 60.0 (>39); GLUCOSE, FASTING 99 MG/DL (83-110); POTASSIUM SERUM 3.2 MEQ/L (3.5-5.1); SODIUM LEVEL 142 MEQ/L (136-145); TOTAL PROTEIN 5.4 GM/DL (6.4-8.2)
[2016-10-26] MEDS: ADVAIR DISKUS 250/50 INH PWD INH SCH ×2 (08:50→20:01)
[2016-10-26] MEDS: POTASSIUM CHLORIDE 10 MEQ SR TABLET PO SCH (09:00)
[2016-10-26] MEDS: CALCIUM CARBONATE 500 MG CHEW U/D PO SCH ×2 (09:00→10:08)
[2016-10-26] MEDS: ASPIRIN 81 MG CHEW TABLET PO SCH (10:06)
[2016-10-26] MEDS: predniSONE 10 MG TAB PO SCH (10:07)
[2016-10-26] MEDS: CYANOCOBALAMIN 500 MCG TAB PO SCH (10:07)
[2016-10-26] MEDS: clonazePAM 0.5 MG TAB PO SCH ×2 (10:07→21:00)
[2016-10-26] MEDS: BISOPROLOL FUM 2.5 MG PER 1/2TAB PO SCH (10:07)
[2016-10-26] MEDS: OMEPRAZOLE 20 MG CAP PO SCH (10:08)
[2016-10-26] MEDS: TRINTELLIX 5 MG PO SCH (10:08)
[2016-10-26] MEDS: CEPHALEXIN 500 MG CAP PO SCH (10:08)
[2016-10-26] MEDS: QUEtiapine FUMARATE 25 MG TAB PO SCH ×3 (10:09→22:03)
[2016-10-26] MEDS: FLUTICASONE PROP 0.05% NASAL SPRAY 16 GM (FLONASE) SCH (10:10)
[2016-10-26 14:00] VITALS: BP 116/53
[2016-10-26] MEDS ORDERED: KCL 20MEQ IN 100ML SWI (KRUN) 20 MEQ in APPROPRIATE DILUENT 1 EA IV SCH ×2 (14:00)
[2016-10-26] MEDS: KCL 10MEQ IN 100ML SWI (KRUN) 10 MEQ in APPROPRIATE DILUENT 1 EA IV SCH ×8 (15:14→23:20)
[2016-10-26] MEDS: cefTRIAXone SOD 1 GM in D5W MINI-BAG PLUS 50 ML IV SCH (16:00)
[2016-10-26] MEDS: DOCUSATE SODIUM 100 MG CAP PO SCH ×2 (21:00→22:03)
[2016-10-26] MEDS: NORTRIPTYLINE 25 MG CAP PO SCH ×2 (21:00→22:03)
[2016-10-26] MEDS: SIMVASTATIN 20 MG TAB PO SCH ×2 (21:00→22:03)
[2016-10-26 22:00] VITALS: BP 133/64
[2016-10-27] MEDS: IPRATROPIUM 0.5MG/ALBUTEROL 2.5MG INH SOL UD 3ML (DUONEB)(J7620) NEB SCH ×4 (01:40→20:00)
[2016-10-27 06:00] VITALS: BP 129/67
[2016-10-27] MEDS: LEVOTHYROXINE 0.125 MG TAB (125 MCG) PO SCH (06:00)
--- NOTE | 2016-10-27 06:23 | IPNPDOC ---
Subjective General Date Seen The patient was seen on 10/26/16. Subjective Chief Complaint/HPI The patient is a 70-year-old female admitted with a reason for visit of Uti/ Dehydration. Events since last encounter pt seen and examined she was not answering questions only looking at me, i spoke with her daughter General: Reports: ROS Unobtainable Objective Physical Examination General Exam: Positive: Alert, No Acute Distress Eye Exam: Positive: Conjunctiva & lids normal, EOMI, PERRLA, Negative: Sclera icteric ENT Exam: Positive: Atraumatic, Mucous membr. moist/pink, Pharynx Normal Neck Exam: Positive: Supple, Negative: JVD, thyromegaly Chest Exam: Positive: Clear to auscultation, Normal air movement Heart Exam: Positive: Normal S1, Normal S2, Rate Normal, Regular Rhythm, Negative: Murmurs, Rubs Abdomen Exam: Positive: Normal bowel sounds, Soft, Negative: Hepatospenomegaly, Tenderness Extremity Exam: Positive: Normal pulses, Negative: Clubbing, Cyanosis, Edema Assessment /Plan Problems Problems: (1) Pleural effusion Status: Acute Problem Text: * pt started to have low oxygen saturation rate and CTA was ordered to evaluate pt * she was found to have large pleural effusion and consolidation * thoracentesis was ordered but daughter refused stating that she would want her mom to have a more conservative treatment such as lasix which was recently held due to dehydration * I will order previous records from Dr Long office since daughter states she has history of pleural effusion and lung mass, workup was declined * will switch antibiotics to rocephin and start pt on IV lasix (2) ROYER (acute kidney injury) Status: Resolved Problem Text: due to poor oral intake and dehydration BUN and creatinine improved today. Pt has been eating and drinking since yesterday (3) UTI (urinary tract infection) Status: Resolved Problem Text: Symptoms have resolved. continue IV antibiotics (4) Major depression Status: Acute Problem Text: will continue with psychiatry recommendations, once medically cleared patient will be transferred back to [facility] We will continue with sitter for her suicidality. Was unable to access if she has current suicidal ideations. 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 patient was not a candidate for surgery and opted not to undergo any chemotherapy so the mass was not biopsied to establish definitive diagnosis. (10) GERD (gastroesophageal reflux disease) Status: Chronic Plan/VTE VTE Prophylaxis Ordered?: Yes VS, I&O, 24H, Fishbone Vital Signs/I&O Vital Signs Date Time Temp Pulse Resp B/P Pulse Ox O2 Delivery O2 Flow Rate FiO2 10/26/16 14:00 97.2 87 18 116/53 91 Nasal Cannula 2.0 I&O- Last 24 Hours up to 6 AM 10/26/16 06:00 Intake Total 670 ml Output Total 600 ml Balance 70 ml Laboratory Data 24H LABS Laboratory Tests 2 10/26/16 06:18: Blood Urea Nitrogen 16, Creatinine 0.58, Sodium Level 142, Potassium Level 3.2L , Chloride Level 107, Carbon Dioxide Level 27, Calcium Level 8.2L, Aspartate Amino Transf (AST/SGOT) 28, Alanine Aminotransferase (ALT/SGPT) 51, Lactate Dehydrogenase 298H, Alkaline Phosphatase 82, Total Bilirubin 0.4, Total Protein 5.4L, Albumin 2.5L, Albumin/Globulin Ratio 0.86L, Anion Gap 8, Glomerular Filtration Rate > 60.0 CBC/BMP Laboratory Tests 10/26/16 06:18 Calcium Level 8.2 L, Aspartate Amino Transf (AST/SGOT) 28, Alanine Aminotransferase (ALT/SGPT) 51, Lactate Dehydrogenase 298 H, Alkaline Phosphatase 82, Total Bilirubin 0.4, Total Protein 5.4 L, Albumin 2.5 L, Red Blood Count 3.34 L, Mean Corpuscular Volume 96.8 H, Mean Corpuscular Hemoglobin 31.5, Mean Corpuscular Hemoglobin Concent 32.5, Red Cell Distribution Width 15.4 H Microbiology Microbiology 10/21/16 Blood Culture - Final, Complete NO GROWTH AFTER 5 DAYS 10/21/16 Influenza Virus Type A Antigen - Final, Complete 10/21/16 Influenza Virus Type B Antigen - Final, Complete 10/22/16 Urine Culture - Final, Complete Strep Agalactiae Group B CARMENCITA TRINH DO Oct 26, 2016 19:43
[2016-10-27 07:19] LABS: MEAN CORPUSCULAR HEMOGLOBIN 31.2 pg (27.0-33.0); MEAN CORPUSCULAR HGB CONC 32.7 g/dl (32.0-36.5); MEAN CORPUSCULAR VOLUME 95.6 fl (80.0-96.0); RED CELL DISTRIBUTION WIDTH 15.2 % (11.5-14.5); WHITE BLOOD COUNT 5.4 K/mm3 (4.0-10.0)
[2016-10-27 07:34] LABS: ALBUMIN 2.5 GM/DL (3.2-5.2); ALBUMIN/GLOBULIN RATIO 0.76 (1.00-1.93); ALKALINE PHOSPHATASE 79 U/L (45-117); ALT/SGPT 50 U/L (12-78); ANION GAP 6 MEQ/L (8-16); AST/SGOT 31 U/L (15-37); BILIRUBIN,TOTAL 0.5 MG/DL (0.2-1.0); BLOOD UREA NITROGEN 11 MG/DL (7-18); CALCIUM LEVEL 7.9 MG/DL (8.8-10.2); CARBON DIOXIDE LEVEL 28 MEQ/L (21-32); CHLORIDE LEVEL 108 MEQ/L (98-107); CREATININE FOR GFR 0.48 MG/DL (0.55-1.02); GLOMERULAR FILTRATION RATE > 60.0 (>39); GLUCOSE, FASTING 71 MG/DL (83-110); POTASSIUM SERUM 3.6 MEQ/L (3.5-5.1); SODIUM LEVEL 142 MEQ/L (136-145); TOTAL PROTEIN 5.8 GM/DL (6.4-8.2)
[2016-10-27] MEDS: ADVAIR DISKUS 250/50 INH PWD INH SCH ×2 (07:34→20:06)
[2016-10-27] MEDS: predniSONE 10 MG TAB PO SCH (08:17)
[2016-10-27] MEDS: CALCIUM CARBONATE 500 MG CHEW U/D PO SCH (08:17)
[2016-10-27] MEDS: CYANOCOBALAMIN 500 MCG TAB PO SCH (08:17)
[2016-10-27] MEDS: OMEPRAZOLE 20 MG CAP PO SCH (08:17)
[2016-10-27] MEDS: FUROSEMIDE 20 MG/2 ML VIAL (J1940) IV SCH (08:17)
[2016-10-27] MEDS: QUEtiapine FUMARATE 25 MG TAB PO SCH ×2 (08:17→20:32)
[2016-10-27] MEDS: clonazePAM 0.5 MG TAB PO SCH ×2 (08:18→20:32)
[2016-10-27] MEDS: POTASSIUM CHLORIDE 10 MEQ SR TABLET PO SCH (08:18)
[2016-10-27] MEDS: ASPIRIN 81 MG CHEW TABLET PO SCH (08:18)
[2016-10-27] MEDS: BISOPROLOL FUM 2.5 MG PER 1/2TAB PO SCH (08:19)
[2016-10-27] MEDS: FLUTICASONE PROP 0.05% NASAL SPRAY 16 GM (FLONASE) SCH (08:19)
[2016-10-27] MEDS: TRINTELLIX 5 MG PO SCH (08:19)
[2016-10-27 14:00] VITALS: BP 116/55
[2016-10-27] MEDS: cefTRIAXone SOD 1 GM in D5W MINI-BAG PLUS 50 ML IV SCH (16:07)
[2016-10-27] MEDS: SIMVASTATIN 20 MG TAB PO SCH (20:32)
[2016-10-27] MEDS: DOCUSATE SODIUM 100 MG CAP PO SCH (20:32)
[2016-10-27] MEDS: NORTRIPTYLINE 25 MG CAP PO SCH (20:32)
[2016-10-27 22:00] VITALS: BP 116/55
--- NOTE | 2016-10-27 23:46 | IPNPDOC ---
Subjective Date Seen The patient was seen on 10/27/16. Subjective Chief Complaint/HPI The patient is a 70-year-old female admitted with a reason for visit of Uti/ Dehydration. Events since last encounter Pt not responding to questions today. She is sitting upright in her chair watching TV. General: Reports: ROS Unobtainable Objective Physical Examination General Exam: Positive: Alert, No Acute Distress Eye Exam: Positive: Conjunctiva & lids normal, EOMI, PERRLA, Negative: Sclera icteric ENT Exam: Positive: Atraumatic, Mucous membr. moist/pink, Pharynx Normal Neck Exam: Positive: Supple, Negative: JVD, thyromegaly Chest Exam: Positive: Clear to auscultation, Normal air movement Heart Exam: Positive: Normal S1, Normal S2, Rate Normal, Regular Rhythm, Negative: Murmurs, Rubs Abdomen Exam: Positive: Normal bowel sounds, Soft, Negative: Hepatospenomegaly, Tenderness Extremity Exam: Positive: Normal pulses, Negative: Clubbing, Cyanosis, Edema Assessment /Plan Problems (1) Pleural effusion Status: Acute Problem Text: * CTA was ordered to evaluate pt for SOB 10/26/16 * she was found to have large pleural effusion and consolidation * thoracentesis was ordered but daughter refused stating that she would want her mom to have a more conservative treatment such as lasix which was recently held due to dehydration * Previously treated by Dr Long. Daughter states she has history of pleural effusion and lung mass, workup was declined. * Report of CT chest from [facility]: Completed 08/30/16 showed 1) small L pleural effusion, decreased from 06/21/16; 2) R middle lobe infiltrate decreased from 06/21/16; 3) Chronic bilateral adrenal adenomas * cont pt on IV lasix (2) ROYER (acute kidney injury) Status: Resolved Problem Text: due to poor oral intake and dehydration BUN and creatinine improved Pt has been eating and drinking (3) UTI (urinary tract infection) Status: Resolved Problem Text: Symptoms have resolved. continue IV antibiotics (4) Major depression Status: Acute Problem Text: will continue with psychiatry recommendations, once medically cleared patient will be transferred back to [facility] We will continue with sitter for her suicidality. Was unable to access if she has current suicidal ideations. 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 patient was not a candidate for surgery and opted not to undergo any chemotherapy so the mass was not biopsied to establish definitive diagnosis. (10) GERD (gastroesophageal reflux disease) Status: Chronic Plan/VTE VTE Prophylaxis Ordered?: Yes VS, I&O, 24H, Fishbone Vital Signs/I&O Vital Signs Date Time Temp Pulse Resp B/P Pulse Ox O2 Delivery O2 Flow Rate FiO2 10/27/16 08:19 89 129/67 10/27/16 06:00 98.7 18 90 Nasal Cannula 2.0 I&O- Last 24 Hours up to 6 AM 10/27/16 06:00 Intake Total 300 ml Output Total 425 ml Balance -125 ml Laboratory Data 24H LABS Laboratory Tests 2 10/27/16 06:54: Blood Urea Nitrogen 11, Creatinine 0.48L, Sodium Level 142, Potassium Level 3.6 , Chloride Level 108H, Carbon Dioxide Level 28, Calcium Level 7.9L, Aspartate Amino Transf (AST/SGOT) 31, Alanine Aminotransferase (ALT/SGPT) 50, Alkaline Phosphatase 79, Total Bilirubin 0.5, Total Protein 5.8L, Albumin 2.5L, Albumin/ Globulin Ratio 0.76L, Anion Gap 6L, Glomerular Filtration Rate > 60.0 CBC/BMP Laboratory Tests 10/27/16 06:54 Calcium Level 7.9 L, Aspartate Amino Transf (AST/SGOT) 31, Alanine Aminotransferase (ALT/SGPT) 50, Alkaline Phosphatase 79, Total Bilirubin 0.5, Total Protein 5.8 L, Albumin 2.5 L, Red Blood Count 3.53 L, Mean Corpuscular Volume 95.6, Mean Corpuscular Hemoglobin 31.2, Mean Corpuscular Hemoglobin Concent 32.7, Red Cell Distribution Width 15.2 H Microbiology Microbiology 10/21/16 Blood Culture - Final, Complete NO GROWTH AFTER 5 DAYS 10/21/16 Influenza Virus Type A Antigen - Final, Complete 10/21/16 Influenza Virus Type B Antigen - Final, Complete 10/22/16 Urine Culture - Final, Complete Strep Agalactiae Group B FACUNDO BUCKLEY DO Oct 27, 2016 10:05
[2016-10-28] MEDS: IPRATROPIUM 0.5MG/ALBUTEROL 2.5MG INH SOL UD 3ML (DUONEB)(J7620) NEB SCH ×4 (01:31→20:00)
[2016-10-28] MEDS: LEVOTHYROXINE 0.125 MG TAB (125 MCG) PO SCH (05:21)
[2016-10-28 06:00] VITALS: BP 139/64
[2016-10-28 06:34] LABS: MEAN CORPUSCULAR HEMOGLOBIN 31.6 pg (27.0-33.0); MEAN CORPUSCULAR HGB CONC 32.6 g/dl (32.0-36.5); MEAN CORPUSCULAR VOLUME 96.9 fl (80.0-96.0); RED CELL DISTRIBUTION WIDTH 15.4 % (11.5-14.5); WHITE BLOOD COUNT 5.5 K/mm3 (4.0-10.0)
[2016-10-28 06:49] LABS: ALKALINE PHOSPHATASE 86 U/L (45-117); ALT/SGPT 55 U/L (12-78); ANION GAP 8 MEQ/L (8-16); AST/SGOT 28 U/L (15-37); BILIRUBIN,TOTAL 0.4 MG/DL (0.2-1.0); BLOOD UREA NITROGEN 15 MG/DL (7-18); CALCIUM LEVEL 8.3 MG/DL (8.8-10.2); CARBON DIOXIDE LEVEL 29 MEQ/L (21-32); CHLORIDE LEVEL 105 MEQ/L (98-107); CREATININE FOR GFR 0.64 MG/DL (0.55-1.02); GLOMERULAR FILTRATION RATE > 60.0 (>39); GLUCOSE, FASTING 94 MG/DL (83-110); POTASSIUM SERUM 3.3 MEQ/L (3.5-5.1); SODIUM LEVEL 142 MEQ/L (136-145); TOTAL PROTEIN 5.6 GM/DL (6.4-8.2)
[2016-10-28 06:50] LABS: ALBUMIN 2.5 GM/DL (3.2-5.2); ALBUMIN/GLOBULIN RATIO 0.81 (1.00-1.93)
[2016-10-28] MEDS: ADVAIR DISKUS 250/50 INH PWD INH SCH ×2 (07:14→20:30)
[2016-10-28] MEDS: CYANOCOBALAMIN 500 MCG TAB PO SCH (07:29)
[2016-10-28] MEDS: FUROSEMIDE 20 MG/2 ML VIAL (J1940) IV SCH (07:29)
[2016-10-28] MEDS: predniSONE 10 MG TAB PO SCH (07:29)
[2016-10-28] MEDS: OMEPRAZOLE 20 MG CAP PO SCH (07:30)
[2016-10-28] MEDS: clonazePAM 0.5 MG TAB PO SCH ×2 (07:30→20:38)
[2016-10-28] MEDS: QUEtiapine FUMARATE 25 MG TAB PO SCH ×2 (07:30→20:37)
[2016-10-28] MEDS: BISOPROLOL FUM 2.5 MG PER 1/2TAB PO SCH (07:30)
[2016-10-28] MEDS: CALCIUM CARBONATE 500 MG CHEW U/D PO SCH (07:31)
[2016-10-28] MEDS: TRINTELLIX 5 MG PO SCH (07:31)
[2016-10-28] MEDS: ASPIRIN 81 MG CHEW TABLET PO SCH (07:31)
[2016-10-28] MEDS: FLUTICASONE PROP 0.05% NASAL SPRAY 16 GM (FLONASE) SCH (07:32)
[2016-10-28] MEDS: POTASSIUM CHLORIDE 10 MEQ SR TABLET PO SCH (07:32)
[2016-10-28 14:00] VITALS: BP 132/70
[2016-10-28] MEDS: cefTRIAXone SOD 1 GM in D5W MINI-BAG PLUS 50 ML IV SCH (15:21)
--- NOTE | 2016-10-28 18:48 | IPNPDOC ---
Subjective Date Seen The patient was seen on 10/28/16. Subjective Chief Complaint/HPI The patient is a 70-year-old female admitted with a reason for visit of Uti/ Dehydration. Events since last encounter Denies any symptoms today. She said that she does not need anything. Nurse said that she is eating more today. No c/o SOB, Dyspnea, CP. General: Reports: Normal Appetite, Denies: Chills, Fatigue, Malaise, Night Sweats Constitutional: Denies: Chills, Fever, Night Sweats ENT: Denies: Dysphagia, Ear Pain, Head Aches Pulmonary: Denies: Cough, Dyspnea Cardiovascular: Denies: Chest Pain, Lt Headedness, Orthopnea, Palpitations, Paroxysmal Noc. Dyspnea Gastrointestinal: Denies: Abdominal Pain, Constipation, Diarrhea, Nausea, Vomiting Genitourinary: Denies: Dysuria, Frequency, Incontinence, Retention Musculoskeletal: Denies: Back Pain, Joint Pain, Muscle Pain, Neck Pain, Spasms Objective Physical Examination General Exam: Positive: Alert, No Acute Distress Eye Exam: Positive: Conjunctiva & lids normal, EOMI, PERRLA, Negative: Sclera icteric ENT Exam: Positive: Atraumatic, Mucous membr. moist/pink, Pharynx Normal Neck Exam: Positive: Supple, Negative: JVD, thyromegaly Chest Exam: Positive: Normal air movement, Other (Some course breath sounds in the R base, slightly diminished there) Heart Exam: Positive: Normal S1, Normal S2, Rate Normal, Regular Rhythm, Negative: Murmurs, Rubs Abdomen Exam: Positive: Normal bowel sounds, Soft, Negative: Hepatospenomegaly, Tenderness Extremity Exam: Positive: Normal pulses, Negative: Clubbing, Cyanosis, Edema Assessment /Plan Problems (1) Pleural effusion Status: Acute Problem Text: * CTA was ordered to evaluate pt for SOB 10/26/16, today denies any respiratory symptoms * she was found to have large pleural effusion and consolidation * thoracentesis was ordered but daughter refused stating that she would want her mom to have a more conservative treatment such as lasix which was recently held due to dehydration * Previously treated by Dr Long. Daughter states she has history of pleural effusion and lung mass, workup was declined. * Report of CT chest from [facility]: Completed 08/30/16 showed 1) small L pleural effusion, decreased from 06/21/16; 2) R middle lobe infiltrate decreased from 06/21/16; 3) Chronic bilateral adrenal adenomas * cont pt on IV lasix (2) ROYER (acute kidney injury) Status: Resolved Problem Text: due to poor oral intake and dehydration BUN and creatinine improved, now WNL Today, patient is reportedly eating and drinking well (3) UTI (urinary tract infection) Status: Resolved Problem Text: Symptoms have resolved. continue antibiotics (4) Major depression Status: Acute Problem Text: will continue with psychiatry recommendations, once medically cleared patient will be transferred back to [facility] We will continue with sitter for her suicidality. 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 patient was not a candidate for surgery and opted not to undergo any chemotherapy so the mass was not biopsied to establish definitive diagnosis. (10) GERD (gastroesophageal reflux disease) Status: Chronic Plan/VTE VTE Prophylaxis Ordered?: Yes VS, I&O, 24H, [facility] Vital Signs/I&O Vital Signs Date Time Temp Pulse Resp B/P Pulse Ox O2 Delivery O2 Flow Rate FiO2 10/28/16 14:00 98.1 81 18 132/70 92 Nasal Cannula 2.0 I&O- Last 24 Hours up to 6 AM 10/28/16 06:00 Intake Total 720 ml Output Total 1700 ml Balance -980 ml Laboratory Data 24H LABS Laboratory Tests 2 10/28/16 06:15: Blood Urea Nitrogen 15, Creatinine 0.64, Sodium Level 142, Potassium Level 3.3L , Chloride Level 105, Carbon Dioxide Level 29, Calcium Level 8.3L, Aspartate Amino Transf (AST/SGOT) 28, Alanine Aminotransferase (ALT/SGPT) 55, Alkaline Phosphatase 86, Total Bilirubin 0.4, Total Protein 5.6L, Albumin 2.5L, Albumin/ Globulin Ratio 0.81L, Anion Gap 8, Glomerular Filtration Rate > 60.0 CBC/BMP Laboratory Tests 10/28/16 06:15 Calcium Level 8.3 L, Aspartate Amino Transf (AST/SGOT) 28, Alanine Aminotransferase (ALT/SGPT) 55, Alkaline Phosphatase 86, Total Bilirubin 0.4, Total Protein 5.6 L, Albumin 2.5 L, Red Blood Count 3.40 L, Mean Corpuscular Volume 96.9 H, Mean Corpuscular Hemoglobin 31.6, Mean Corpuscular Hemoglobin Concent 32.6, Red Cell Distribution Width 15.4 H Microbiology Microbiology 10/21/16 Blood Culture - Final, Complete NO GROWTH AFTER 5 DAYS 10/21/16 Influenza Virus Type A Antigen - Final, Complete 10/21/16 Influenza Virus Type B Antigen - Final, Complete 10/22/16 Urine Culture - Final, Complete Strep Agalactiae Group B FACUNDO BUCKLEY DO Oct 28, 2016 18:48
[2016-10-28] MEDS: NORTRIPTYLINE 25 MG CAP PO SCH (20:37)
[2016-10-28] MEDS: SIMVASTATIN 20 MG TAB PO SCH (20:37)
[2016-10-28] MEDS: DOCUSATE SODIUM 100 MG CAP PO SCH (20:38)
[2016-10-28 22:00] VITALS: BP 125/58
[2016-10-29] MEDS: IPRATROPIUM 0.5MG/ALBUTEROL 2.5MG INH SOL UD 3ML (DUONEB)(J7620) NEB SCH ×4 (02:00→20:00)
[2016-10-29] MEDS: LEVOTHYROXINE 0.125 MG TAB (125 MCG) PO SCH (05:30)
[2016-10-29 06:00] VITALS: BP 116/57
[2016-10-29] MEDS: ADVAIR DISKUS 250/50 INH PWD INH SCH ×2 (08:51→20:11)
[2016-10-29] MEDS: predniSONE 10 MG TAB PO SCH ×2 (09:00→09:32)
[2016-10-29] MEDS: OMEPRAZOLE 20 MG CAP PO SCH ×2 (09:00→09:31)
[2016-10-29] MEDS: POTASSIUM CHLORIDE 10 MEQ SR TABLET PO SCH ×2 (09:00→09:30)
[2016-10-29] MEDS: CALCIUM CARBONATE 500 MG CHEW U/D PO SCH ×2 (09:00→09:30)
[2016-10-29] MEDS: TRINTELLIX 5 MG PO SCH ×2 (09:00→09:32)
[2016-10-29] MEDS: CYANOCOBALAMIN 500 MCG TAB PO SCH ×2 (09:00→09:32)
[2016-10-29] MEDS: ASPIRIN 81 MG CHEW TABLET PO SCH ×2 (09:00→09:31)
[2016-10-29] MEDS: QUEtiapine FUMARATE 25 MG TAB PO SCH ×3 (09:00→21:00)
[2016-10-29] MEDS: BISOPROLOL FUM 2.5 MG PER 1/2TAB PO SCH ×2 (09:00→09:29)
[2016-10-29] MEDS: FLUTICASONE PROP 0.05% NASAL SPRAY 16 GM (FLONASE) SCH (09:29)
[2016-10-29] MEDS: clonazePAM 0.5 MG TAB PO SCH ×2 (09:29→21:00)
[2016-10-29] MEDS: FUROSEMIDE 20 MG/2 ML VIAL (J1940) IV SCH (09:32)
[2016-10-29 14:00] VITALS: BP 122/56
--- NOTE | 2016-10-29 14:10 | REP ---
Clinical: Shortness of breath. Technique: PA and lateral. Comparison: 12/23/2009. Findings: Moderate right pleural effusion with right lower lobe consolidation and bibasilar atelectasis. No pneumothorax. Impression: Moderate right pleural effusion with right lower lobe consolidation. Bibasilar atelectasis. Signed by Manan Milligan MD 10/29/2016 02:02 P
[2016-10-29] MEDS: cefTRIAXone SOD 1 GM in D5W MINI-BAG PLUS 50 ML IV SCH (17:10)
[2016-10-29] MEDS: NORTRIPTYLINE 25 MG CAP PO SCH (21:00)
[2016-10-29] MEDS: SIMVASTATIN 20 MG TAB PO SCH (21:00)
[2016-10-29] MEDS: DOCUSATE SODIUM 100 MG CAP PO SCH (21:00)
[2016-10-29 22:00] VITALS: BP 140/63
--- NOTE | 2016-10-29 22:22 | IPNPDOC ---
Subjective Date Seen The patient was seen on 10/29/16. Subjective Chief Complaint/HPI The patient is a 70-year-old female admitted with a reason for visit of Uti/ Dehydration. Events since last encounter Not responding to questioning today. Nurse reports that patient has not been eating today. General: Reports: ROS Unobtainable Objective Physical Examination General Exam: Positive: Alert, No Acute Distress Eye Exam: Positive: Conjunctiva & lids normal, EOMI, PERRLA, Negative: Sclera icteric ENT Exam: Positive: Atraumatic, Mucous membr. moist/pink, Pharynx Normal Neck Exam: Positive: Supple, Negative: JVD, thyromegaly Chest Exam: Positive: Normal air movement, Other (Some course breath sounds in the R base, slightly diminished there) Heart Exam: Positive: Normal S1, Normal S2, Rate Normal, Regular Rhythm, Negative: Murmurs, Rubs Abdomen Exam: Positive: Normal bowel sounds, Soft, Negative: Hepatospenomegaly, Tenderness Extremity Exam: Positive: Normal pulses, Negative: Clubbing, Cyanosis, Edema Assessment /Plan Problems (1) Pleural effusion Status: Acute Problem Text: * CTA was ordered to evaluate pt for SOB 10/26/16, today denies any respiratory symptoms * she was found to have large pleural effusion and consolidation * thoracentesis was ordered but daughter refused stating that she would want her mom to have a more conservative treatment such as lasix which was recently held due to dehydration * Previously treated by Dr Long. Daughter states she has history of pleural effusion and lung mass, workup was declined. * Report of CT chest from [facility]: Completed 08/30/16 showed 1) small L pleural effusion, decreased from 06/21/16; 2) R middle lobe infiltrate decreased from 06/21/16; 3) Chronic bilateral adrenal adenomas * cont pt on IV lasix. Pt took lasix today, refused other medications. * No changes to lung sounds today. Pt is 92% on 2L (2) ROYER (acute kidney injury) Status: Resolved Problem Text: due to poor oral intake and dehydration BUN and creatinine improved, now WNL Today, patient is reportedly eating and drinking well (3) UTI (urinary tract infection) Status: Resolved Problem Text: Symptoms have resolved. continue antibiotics (4) Major depression Status: Acute Problem Text: will continue with psychiatry recommendations, once medically cleared patient will be transferred back to [facility] We will continue with sitter for her suicidality. 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 patient was not a candidate for surgery and opted not to undergo any chemotherapy so the mass was not biopsied to establish definitive diagnosis. (10) GERD (gastroesophageal reflux disease) Status: Chronic Plan/VTE VTE Prophylaxis Ordered?: Yes VS, I&O, 24H, Fishbone Vital Signs/I&O Vital Signs Date Time Temp Pulse Resp B/P Pulse Ox O2 Delivery O2 Flow Rate FiO2 10/29/16 14:00 97.1 99 18 122/56 92 Nasal Cannula 2.0 I&O- Last 24 Hours up to 6 AM 10/29/16 06:00 Intake Total 1680 ml Output Total 1400 ml Balance 280 ml Laboratory Data Microbiology Microbiology 10/21/16 Blood Culture - Final, Complete NO GROWTH AFTER 5 DAYS 10/21/16 Influenza Virus Type A Antigen - Final, Complete 10/21/16 Influenza Virus Type B Antigen - Final, Complete 10/22/16 Urine Culture - Final, Complete Strep Agalactiae Group B FACUNDO BUCKLEY DO Oct 29, 2016 22:22
[2016-10-30] MEDS: IPRATROPIUM 0.5MG/ALBUTEROL 2.5MG INH SOL UD 3ML (DUONEB)(J7620) NEB SCH ×4 (01:19→21:16)
[2016-10-30] MEDS: LEVOTHYROXINE 0.125 MG TAB (125 MCG) PO SCH (05:50)
[2016-10-30 06:00] VITALS: BP 140/65
[2016-10-30] MEDS: ADVAIR DISKUS 250/50 INH PWD INH SCH ×2 (07:57→21:16)
[2016-10-30] MEDS: clonazePAM 0.5 MG TAB PO SCH ×2 (09:00→22:48)
[2016-10-30] MEDS: FLUTICASONE PROP 0.05% NASAL SPRAY 16 GM (FLONASE) SCH (09:00)
[2016-10-30] MEDS: FUROSEMIDE 20 MG/2 ML VIAL (J1940) IV SCH (09:00)
[2016-10-30 14:00] VITALS: BP 122/68
[2016-10-30 14:37] LABS: BASO % 0.3 % (0.0-1.0); EOS # 0.1 K/mm3 (0.0-0.50); LARGE UNSTAINED CELL # 0.1 K/mm3 (0.0-0.4); LARGE UNSTAINED CELL % 1.3 % (0.0-4.0); LYMPH # 1.8 K/mm3 (1.5-4.5); LYMPH % 21.7 % (24.0-44.0); MEAN CORPUSCULAR HEMOGLOBIN 31.7 pg (27.0-33.0); MEAN CORPUSCULAR HGB CONC 32.7 g/dl (32.0-36.5); MEAN CORPUSCULAR VOLUME 96.7 fl (80.0-96.0); MONO # 0.5 K/mm3 (0.0-0.8); MONO % 6.1 % (0.0-5.0); NEUTROPHILS # 5.3 K/mm3 (1.8-7.7); NEUTROPHILS % 69.6 % (36.0-66.0); PLATELET COUNT, AUTOMATED 278 k/mm3 (150-450); RED CELL DISTRIBUTION WIDTH 14.8 % (11.5-14.5); WHITE BLOOD COUNT 7.6 K/mm3 (4.0-10.0)
[2016-10-30 15:03] LABS: ALBUMIN/GLOBULIN RATIO 0.73 (1.00-1.93); ALKALINE PHOSPHATASE 110 U/L (45-117); ALT/SGPT 63 U/L (12-78); ANION GAP 12 MEQ/L (8-16); AST/SGOT 35 U/L (15-37); BILIRUBIN,TOTAL 0.7 MG/DL (0.2-1.0); BLOOD UREA NITROGEN 16 MG/DL (7-18); CARBON DIOXIDE LEVEL 30 MEQ/L (21-32); CHLORIDE LEVEL 99 MEQ/L (98-107); CREATININE FOR GFR 0.63 MG/DL (0.55-1.02); GLOMERULAR FILTRATION RATE > 60.0 (>39); GLUCOSE, FASTING 86 MG/DL (83-110); POTASSIUM SERUM 3.3 MEQ/L (3.5-5.1); SODIUM LEVEL 141 MEQ/L (136-145); TOTAL PROTEIN 7.1 GM/DL (6.4-8.2)
[2016-10-30] MEDS: cefTRIAXone SOD 1 GM in D5W MINI-BAG PLUS 50 ML IV SCH (16:00)
[2016-10-30] MEDS: OMEPRAZOLE 20 MG CAP PO SCH (16:18)
[2016-10-30 16:19] VITALS: BP 140/65
[2016-10-30] MEDS: CYANOCOBALAMIN 500 MCG TAB PO SCH (16:19)
[2016-10-30] MEDS: BISOPROLOL FUM 2.5 MG PER 1/2TAB PO SCH (16:19)
[2016-10-30] MEDS: POTASSIUM CHLORIDE 10 MEQ SR TABLET PO SCH (16:19)
[2016-10-30] MEDS: CALCIUM CARBONATE 500 MG CHEW U/D PO SCH (16:20)
[2016-10-30] MEDS: predniSONE 10 MG TAB PO SCH (16:20)
[2016-10-30] MEDS: ASPIRIN 81 MG CHEW TABLET PO SCH (16:20)
[2016-10-30] MEDS: TRINTELLIX 5 MG PO SCH (16:21)
[2016-10-30] MEDS: QUEtiapine FUMARATE 25 MG TAB PO SCH ×2 (16:22→22:48)
--- NOTE | 2016-10-30 19:39 | IPNPDOC ---
Subjective Date Seen The patient was seen on 10/30/16. Subjective Chief Complaint/HPI The patient is a 70-year-old female admitted with a reason for visit of Uti/ Dehydration. Events since last encounter pt seen and examined, was refusing medication earlier today General: Reports: ROS Unobtainable Objective Physical Examination General Exam: Positive: Alert, No Acute Distress Eye Exam: Positive: Conjunctiva & lids normal, EOMI, PERRLA, Negative: Sclera icteric ENT Exam: Positive: Atraumatic, Mucous membr. moist/pink, Pharynx Normal Neck Exam: Positive: Supple, Negative: JVD, thyromegaly Chest Exam: Positive: Normal air movement, Other (Some course breath sounds in the R base, slightly diminished there) Heart Exam: Positive: Normal S1, Normal S2, Rate Normal, Regular Rhythm, Negative: Murmurs, Rubs Abdomen Exam: Positive: Normal bowel sounds, Soft, Negative: Hepatospenomegaly, Tenderness Extremity Exam: Positive: Normal pulses, Negative: Clubbing, Cyanosis, Edema Assessment /Plan Problems (1) Pleural effusion Status: Acute Problem Text: * CTA was ordered to evaluate pt for SOB 10/26/16, today denies any respiratory symptoms * she was found to have large pleural effusion and consolidation * thoracentesis was ordered but daughter refused stating that she would want her mom to have a more conservative treatment such as lasix which was recently held due to dehydration * Previously treated by Dr Long. Daughter states she has history of pleural effusion and lung mass, workup was declined. * Report of CT chest from [facility]: Completed 08/30/16 showed 1) small L pleural effusion, decreased from 06/21/16; 2) R middle lobe infiltrate decreased from 06/21/16; 3) Chronic bilateral adrenal adenomas * cont pt on IV lasix. Pt took lasix today, refused other medications. * No changes to lung sounds today. Pt is 92% on 2L * chest xray still showing pleural effusion, i discussed it with daughter again today and she informed me that her mother had refused the biopsy due to fear of pneumothorax and she doesn't want her to get a thoracentesis either. (2) ROYER (acute kidney injury) Status: Resolved Problem Text: due to poor oral intake and dehydration BUN and creatinine improved, now WNL Today, patient is reportedly eating and drinking well (3) UTI (urinary tract infection) Status: Resolved Problem Text: Symptoms have resolved. continue antibiotics (4) Major depression Status: Acute Problem Text: will continue with psychiatry recommendations, once medically cleared patient will be transferred back to [facility] We will continue with sitter for her suicidality. 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 patient was not a candidate for surgery and opted not to undergo any chemotherapy so the mass was not biopsied to establish definitive diagnosis. (10) GERD (gastroesophageal reflux disease) Status: Chronic (11) Hypokalemia Status: Acute (12) Oral thrush Status: Acute Plan/VTE VTE Prophylaxis Ordered?: Yes VS, I&O, [facility] Vital Signs/I&O Vital Signs Date Time Temp Pulse Resp B/P Pulse Ox O2 Delivery O2 Flow Rate FiO2 10/30/16 16:19 92 140/65 10/30/16 14:00 97.4 16 97 Nasal Cannula 2.0 I&O- Last 24 Hours up to 6 AM 10/30/16 06:00 Intake Total 360 ml Output Total 1200 ml Balance -840 ml Laboratory Data 24H LABS Laboratory Tests 2 10/30/16 14:03: Blood Urea Nitrogen 16, Creatinine 0.63, Sodium Level 141, Potassium Level 3.3L , Chloride Level 99, Carbon Dioxide Level 30, Calcium Level 9.0, Aspartate Amino Transf (AST/SGOT) 35, Alanine Aminotransferase (ALT/SGPT) 63, Alkaline Phosphatase 110, Total Bilirubin 0.7#, Total Protein 7.1#, Albumin 3.0L, Albumin /Globulin Ratio 0.73L, Anion Gap 12, White Blood Count 7.6, Red Blood Count 4.38 , Hemoglobin 13.9, Hematocrit 42.4, Mean Corpuscular Volume 96.7H, Mean Corpuscular Hemoglobin 31.7, Mean Corpuscular Hemoglobin Concent 32.7, Red Cell Distribution Width 14.8H, Platelet Count 278, Neutrophils (%) (Auto) 69.6H, Lymphocytes (%) (Auto) 21.7L, Monocytes (%) (Auto) 6.1H, Eosinophils (%) (Auto) 1.0, Basophils (%) (Auto) 0.3, Neutrophils # (Auto) 5.3, Lymphocytes # (Auto) 1.8, Monocytes # (Auto) 0.5, Eosinophils # (Auto) 0.1, Basophils # (Auto) 0.0, Glomerular Filtration Rate > 60.0, Large Unclassified Cells # 0.1, Large Unclassified Cells % 1.3 CBC/BMP Laboratory Tests 10/30/16 14:03 Calcium Level 9.0, Aspartate Amino Transf (AST/SGOT) 35, Alanine Aminotransferase (ALT/SGPT) 63, Alkaline Phosphatase 110, Total Bilirubin 0.7 # , Total Protein 7.1 #, Albumin 3.0 L, Red Blood Count 4.38, Mean Corpuscular Volume 96.7 H, Mean Corpuscular Hemoglobin 31.7, Mean Corpuscular Hemoglobin Concent 32.7, Red Cell Distribution Width 14.8 H, Neutrophils (%) (Auto) 69.6 H , Lymphocytes (%) (Auto) 21.7 L, Monocytes (%) (Auto) 6.1 H, Eosinophils (%) ( Auto) 1.0, Basophils (%) (Auto) 0.3, Neutrophils # (Auto) 5.3, Lymphocytes # ( Auto) 1.8, Monocytes # (Auto) 0.5, Eosinophils # (Auto) 0.1, Basophils # (Auto) 0.0 Microbiology Microbiology 10/21/16 Blood Culture - Final, Complete NO GROWTH AFTER 5 DAYS 10/21/16 Influenza Virus Type A Antigen - Final, Complete 10/21/16 Influenza Virus Type B Antigen - Final, Complete 10/22/16 Urine Culture - Final, Complete Strep Agalactiae Group B CARMENCITA TRINH DO Oct 30, 2016 19:39
[2016-10-30 22:00] VITALS: BP 128/61
[2016-10-30] MEDS: DOCUSATE SODIUM 100 MG CAP PO SCH (22:48)
[2016-10-30] MEDS: NORTRIPTYLINE 25 MG CAP PO SCH (22:49)
[2016-10-30] MEDS: SIMVASTATIN 20 MG TAB PO SCH (22:50)
[2016-10-30] MEDS: NYSTATIN 500,000 U/5 ML SUSP UDC SS SCH (22:50)
[2016-10-31] MEDS: IPRATROPIUM 0.5MG/ALBUTEROL 2.5MG INH SOL UD 3ML (DUONEB)(J7620) NEB SCH ×3 (01:18→14:07)
[2016-10-31 06:00] VITALS: BP 102/56
[2016-10-31] MEDS: LEVOTHYROXINE 0.125 MG TAB (125 MCG) PO SCH (06:06)
[2016-10-31 07:08] LABS: MEAN CORPUSCULAR HEMOGLOBIN 31.3 pg (27.0-33.0); MEAN CORPUSCULAR HGB CONC 32.5 g/dl (32.0-36.5); MEAN CORPUSCULAR VOLUME 96.3 fl (80.0-96.0); WHITE BLOOD COUNT 5.7 K/mm3 (4.0-10.0)
[2016-10-31] MEDS: ADVAIR DISKUS 250/50 INH PWD INH SCH (07:08)
[2016-10-31 07:25] LABS: ALBUMIN 2.7 GM/DL (3.2-5.2); ALBUMIN/GLOBULIN RATIO 0.69 (1.00-1.93); ALKALINE PHOSPHATASE 87 U/L (45-117); ALT/SGPT 50 U/L (12-78); ANION GAP 12 MEQ/L (8-16); AST/SGOT 33 U/L (15-37); BILIRUBIN,TOTAL 0.7 MG/DL (0.2-1.0); BLOOD UREA NITROGEN 14 MG/DL (7-18); CALCIUM LEVEL 8.6 MG/DL (8.8-10.2); CARBON DIOXIDE LEVEL 26 MEQ/L (21-32); CHLORIDE LEVEL 101 MEQ/L (98-107); CREATININE FOR GFR 0.73 MG/DL (0.55-1.02); GLOMERULAR FILTRATION RATE > 60.0 (>39); GLUCOSE, FASTING 105 MG/DL (83-110); POTASSIUM SERUM 4.4 MEQ/L (3.5-5.1); SODIUM LEVEL 139 MEQ/L (136-145); TOTAL PROTEIN 6.6 GM/DL (6.4-8.2)
--- NOTE | 2016-10-31 08:42 | IPNPDOC ---
Subjective Date Seen The patient was seen on 10/31/16. Subjective Chief Complaint/HPI The patient is a 70-year-old female admitted with a reason for visit of Uti/ Dehydration. Events since last encounter pt seen and examined, complaining of poor appetite this morning Constitutional: Denies: Chills, Fever, Night Sweats Pulmonary: Reports: Dyspnea, Denies: Cough Cardiovascular: Denies: Chest Pain, Lt Headedness, Orthopnea, Palpitations, Paroxysmal Noc. Dyspnea Objective Physical Examination General Exam: Positive: Alert, No Acute Distress Eye Exam: Positive: Conjunctiva & lids normal, EOMI, PERRLA, Negative: Sclera icteric ENT Exam: Positive: Atraumatic, Mucous membr. moist/pink, Pharynx Normal Neck Exam: Positive: Supple, Negative: JVD, thyromegaly Chest Exam: Positive: Normal air movement, Other (Some course breath sounds in the R base, slightly diminished there) Heart Exam: Positive: Normal S1, Normal S2, Rate Normal, Regular Rhythm, Negative: Murmurs, Rubs Abdomen Exam: Positive: Normal bowel sounds, Soft, Negative: Hepatospenomegaly, Tenderness Extremity Exam: Positive: Normal pulses, Negative: Clubbing, Cyanosis, Edema Assessment /Plan Problems (1) Pleural effusion Status: Acute Problem Text: * CTA was ordered to evaluate pt for SOB 10/26/16, today denies any respiratory symptoms * she was found to have large pleural effusion and consolidation * thoracentesis was ordered but daughter refused stating that she would want her mom to have a more conservative treatment such as lasix which was recently held due to dehydration * Previously treated by Dr Long. Daughter states she has history of pleural effusion and lung mass, workup was declined. * Report of CT chest from [facility]: Completed 08/30/16 showed 1) small L pleural effusion, decreased from 06/21/16; 2) R middle lobe infiltrate decreased from 06/21/16; 3) Chronic bilateral adrenal adenomas * continue oral lasix 40mg daily * No changes to lung sounds today. Pt is 92% on 2L * chest xray still showing pleural effusion, i discussed it with daughter again and she informed me that her mother had refused the biopsy due to fear of pneumothorax and she doesn't want her to get a thoracentesis either. * pt will likely remain on oxygen if no further intervention is done (2) ROYER (acute kidney injury) Status: Resolved Problem Text: due to poor oral intake and dehydration BUN and creatinine improved, now WNL Today, patient is reportedly eating and drinking well (3) UTI (urinary tract infection) Status: Resolved Problem Text: Symptoms have resolved. pt completed a course of ceftriaxone (4) Major depression Status: Acute Problem Text: will continue with psychiatry recommendations, once medically cleared patient will be transferred back to [facility] We will continue with sitter for her suicidality. 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 patient was not a candidate for surgery and opted not to undergo any chemotherapy so the mass was not biopsied to establish definitive diagnosis. (10) GERD (gastroesophageal reflux disease) Status: Chronic (11) Hypokalemia Status: Resolved (12) Oral thrush Status: Acute Plan/VTE VTE Prophylaxis Ordered?: Yes VS, I&O, 24H, Fishbone Vital Signs/I&O Vital Signs Date Time Temp Pulse Resp B/P Pulse Ox O2 Delivery O2 Flow Rate FiO2 10/31/16 06:00 97.2 88 16 102/56 93 Nasal Cannula 2.0 I&O- Last 24 Hours up to 6 AM 10/31/16 05:59 Intake Total 1230 ml Output Total 1600 ml Balance -370 ml Laboratory Data 24H LABS Laboratory Tests 2 10/30/16 14:03: Blood Urea Nitrogen 16, Creatinine 0.63, Sodium Level 141, Potassium Level 3.3L , Chloride Level 99, Carbon Dioxide Level 30, Calcium Level 9.0, Aspartate Amino Transf (AST/SGOT) 35, Alanine Aminotransferase (ALT/SGPT) 63, Alkaline Phosphatase 110, Total Bilirubin 0.7#, Total Protein 7.1#, Albumin 3.0L, Albumin /Globulin Ratio 0.73L, Anion Gap 12, White Blood Count 7.6, Red Blood Count 4.38 , Hemoglobin 13.9, Hematocrit 42.4, Mean Corpuscular Volume 96.7H, Mean Corpuscular Hemoglobin 31.7, Mean Corpuscular Hemoglobin Concent 32.7, Red Cell Distribution Width 14.8H, Platelet Count 278, Neutrophils (%) (Auto) 69.6H, Lymphocytes (%) (Auto) 21.7L, Monocytes (%) (Auto) 6.1H, Eosinophils (%) (Auto) 1.0, Basophils (%) (Auto) 0.3, Neutrophils # (Auto) 5.3, Lymphocytes # (Auto) 1.8, Monocytes # (Auto) 0.5, Eosinophils # (Auto) 0.1, Basophils # (Auto) 0.0, Glomerular Filtration Rate > 60.0, Large Unclassified Cells # 0.1, Large Unclassified Cells % 1.3 10/31/16 06:25: Blood Urea Nitrogen 14, Creatinine 0.73, Sodium Level 139, Potassium Level 4.4# , Chloride Level 101, Carbon Dioxide Level 26, Calcium Level 8.6L, Aspartate Amino Transf (AST/SGOT) 33, Alanine Aminotransferase (ALT/SGPT) 50, Alkaline Phosphatase 87, Total Bilirubin 0.7, Total Protein 6.6, Albumin 2.7L, Albumin/ Globulin Ratio 0.69L, Anion Gap 12, Glomerular Filtration Rate > 60.0 CBC/BMP Laboratory Tests 10/30/16 14:03 Calcium Level 9.0, Aspartate Amino Transf (AST/SGOT) 35, Alanine Aminotransferase (ALT/SGPT) 63, Alkaline Phosphatase 110, Total Bilirubin 0.7 # , Total Protein 7.1 #, Albumin 3.0 L, Red Blood Count 4.38, Mean Corpuscular Volume 96.7 H, Mean Corpuscular Hemoglobin 31.7, Mean Corpuscular Hemoglobin Concent 32.7, Red Cell Distribution Width 14.8 H, Neutrophils (%) (Auto) 69.6 H , Lymphocytes (%) (Auto) 21.7 L, Monocytes (%) (Auto) 6.1 H, Eosinophils (%) ( Auto) 1.0, Basophils (%) (Auto) 0.3, Neutrophils # (Auto) 5.3, Lymphocytes # ( Auto) 1.8, Monocytes # (Auto) 0.5, Eosinophils # (Auto) 0.1, Basophils # (Auto) 0.0 10/31/16 06:25 Calcium Level 8.6 L, Aspartate Amino Transf (AST/SGOT) 33, Alanine Aminotransferase (ALT/SGPT) 50, Alkaline Phosphatase 87, Total Bilirubin 0.7, Total Protein 6.6, Albumin 2.7 L, Red Blood Count 3.94 L, Mean Corpuscular Volume 96.3 H, Mean Corpuscular Hemoglobin 31.3, Mean Corpuscular Hemoglobin Concent 32.5, Red Cell Distribution Width 15.0 H Microbiology Microbiology 10/21/16 Blood Culture - Final, Complete NO GROWTH AFTER 5 DAYS 10/21/16 Influenza Virus Type A Antigen - Final, Complete 10/21/16 Influenza Virus Type B Antigen - Final, Complete 10/22/16 Urine Culture - Final, Complete Strep Agalactiae Group B CARMENCITA TRINH DO Oct 31, 2016 08:42
[2016-10-31] MEDS: OMEPRAZOLE 20 MG CAP PO SCH (09:00)
[2016-10-31] MEDS: POTASSIUM CHLORIDE 10 MEQ SR TABLET PO SCH (09:00)
[2016-10-31] MEDS: TRINTELLIX 5 MG PO SCH (09:00)
[2016-10-31] MEDS: CYANOCOBALAMIN 500 MCG TAB PO SCH (09:00)
[2016-10-31] MEDS ORDERED: FUROSEMIDE 40 MG TAB PO SCH (09:00)
[2016-10-31] MEDS: BISOPROLOL FUM 2.5 MG PER 1/2TAB PO SCH (09:00)
[2016-10-31] MEDS: NYSTATIN 500,000 U/5 ML SUSP UDC SS SCH (09:00)
[2016-10-31] MEDS: ASPIRIN 81 MG CHEW TABLET PO SCH (09:00)
[2016-10-31] MEDS: QUEtiapine FUMARATE 25 MG TAB PO SCH (09:00)
[2016-10-31] MEDS: clonazePAM 0.5 MG TAB PO SCH (09:00)
[2016-10-31] MEDS: predniSONE 10 MG TAB PO SCH (09:00)
[2016-10-31] MEDS: CALCIUM CARBONATE 500 MG CHEW U/D PO SCH (09:00)
[2016-10-31] MEDS: FLUTICASONE PROP 0.05% NASAL SPRAY 16 GM (FLONASE) SCH (09:00)
[2016-10-31 14:00] VITALS: BP 142/64
--- NOTE | 2016-11-01 06:06 | DSES ---
DATE OF ADMISSION: 10/21/2016 DATE OF DISCHARGE: 10/31/2016 REASON FOR ADMISSION: Dehydration. FINAL DIAGNOSES: 1. Moderate size pleural effusion. 2. Acute kidney injury (ROYER), which had resolved. 3. Urinary tract infection, which had resolved. 4. Major depression disorder. 5. Hypertension. 6. Hypothyroidism. 7. Hyperlipidemia. 8. Chronic obstructive pulmonary disease (COPD). 9. History of lung cancer. 10. Gastroesophageal reflux disease (GERD). 11. Hypokalemia. 12. Oral thrush. 13. Adrenal nodules. HISTORY OF PRESENT ILLNESS: The patient is a 70-year-old female, was transferred to the medical floor from inpatient mental health unit secondary to dehydration, refusing to eat or drink, taking her medication for 2 days. She refused several blood work, chest x-ray, urinalysis, urine culture. She did not respond to any questioning. She was moved to the medical floor for intravenous (IV) hydration. HOSPITAL COURSE: The patient was found to be dehydrated with acute kidney injury secondary to dehydration. She was started on IV fluids at a rate of 125 mL an hour. She was found to be hypokalemic. Potassium supplementation was given. The patient also had a leukocytosis likely secondary to urinary tract infection. Urine culture was obtained and was positive for Streptococcus group B. The patient was treated with 1 week of antibiotics. Then patient's oxygen saturation started to go down. Chest x-ray was ordered at that time and a CT angiogram of the chest was ordered and it showed moderate pleural effusion and right middle lobe consolidation, as well as chronic COPD and bilateral adrenal lesions. Findings were discussed with the patient and her daughter and a thoracentesis was ordered. Patient, however, refused a thoracentesis. Her daughter stating that she did not want her mother to have any invasive procedures and she would rather that her mother be restarted on her Lasix, which was held due to dehydration. At that time thoracentesis was cancelled. The patient was resumed on her Lasix initially IV and then after her IV was pulled out it was changed to oral after her kidney function had improved. Repeat chest x-ray was done later in the admission showing that the moderate effusion still is there. Another discussion was had with the daughter and she still refused any invasive procedures at this time, stating her mother would not have wanted and that in the past she did not want any workup for her lung masses, stating that she would not want any chemotherapy, radiation or any invasive treatment. Once the patient's oxygen saturation remained stable on 2 liters for several days and she had completed a course of antibiotic, she was discharged back to inpatient mental health unit ([facility]). DISCHARGE CONDITION: Stable. DISCHARGE MEDICATIONS: Include: - aspirin 81 mg half a tablet daily - bisoprolol 0.5 mg half a tablet daily - calcium carbonate 500 mg daily - clonazepam 0.25 mg by mouth twice a day as needed for agitation - vitamin B12 500 mcg by mouth daily - Lasix 40 mg by mouth daily - Bacid one tablet by mouth daily - loperamide 2 mg by mouth as needed for diarrhea - milk of magnesia 30 mg by mouth suspension for constipation - nortriptyline 75 mg at bedtime - omeprazole 20 mg by mouth daily - potassium chloride 20 mEq every 2 days - prednisone 10 mg by mouth daily - quetiapine fumarate 25 mg by mouth twice a day - Advair Diskus one puff inhaled twice a day - simvastatin 20 mg at bedtime Valsartan was discontinued when the patient was discharged.
--- NOTE | 2016-11-01 16:15 | CR.PDOC ---
[facility] Consultation Consultation DATE OF CONSULTATION: 10/31/16 CONSULTATION REQUESTED BY: Hospitalist REASON FOR CONSULTATION: Recent suicidal statement - "I'd just like to ." HISTORY OF PRESENT ILLNESS: Patient is a 70-year-old female, transferred to the medical floor from inpatient mental health unit secondary to dehydration, refusing to eat or drink. She refused meds and refused several blood work, chest x-ray, urinalysis, urine culture investigations. The patient was found to be dehydrated with acute kidney injury secondary to dehydration. She was started on IV fluids at a rate of 125 mL an hour. She was found to be hypokalemic. Potassium supplementation was given. The patient also had a leukocytosis likely secondary to urinary tract infection. Urine culture was obtained and was positive for Streptococcus group B. The patient was treated with 1 week of antibiotics. Then patient's oxygen saturation started to go down. Chest x-ray was ordered at that time and a CT angiogram of the chest was ordered and it showed moderate pleural effusion and right middle lobe consolidation, as well as chronic COPD and bilateral adrenal lesions. Findings were discussed with the patient and her daughter and a thoracentesis was ordered. Patient, however, refused a thoracentesis. Her daughter stating that she did not want her mother to have any invasive procedures and she would rather that her mother be restarted on her Lasix, which was held due to dehydration. At that time thoracentesis was cancelled. The patient was resumed on her Lasix initially IV and then after her IV was pulled out it was changed to oral after her kidney function had improved. Repeat chest x-ray was done later in the admission showing that the moderate effusion still is there. Another discussion was had with the daughter and she still refused any invasive procedures at this time, stating her mother would not have wanted and that in the past she did not want any workup for her lung masses , stating that she would not want any chemotherapy, radiation or any invasive treatment. On interview, patient is calm and cooperative. She engages this provider in conversation. She is alert and oriented 3. Patient is linear and thought process and appropriate in thought content. Patient reports increased psychosocial stressors including: financial and medical as above. Patient reports ongoing in depressive symptoms. She reports ongoing desire to not have invasive procedures. Patient reports no SI no HI currently. She denies AH and VH. No bizarre statements or behaviors noted. No signs of psychosis reported or observed during this interview. Medication compliance encouraged to patient. Recent encouraged to maintain appropriate nutritional intake. PAST PSYCHIATRIC HISTORY: Not currently participating in outpatient psychiatric treatment, no prior psychiatric hospitalizations at [facility] noted in EMR. Out Patient Treatment: None known but patient is being prescribed amitriptyline and Klonopin Suicidal/Self injurious: Patient denies and none noted in EMR Psychotropic Medication History: Was taking at [place] the following psychotropic medications: nortriptyline, trintellix, Klonopin, and Seroquel ALLERGIES: Latex, Naproxen, PCN, PCN cross reactors. PAST MEDICAL/SURGICAL HISTORY: -Current stable pleural effusion which patient does not want invasive mx of. Hx of chest CT on 10/23/15 indicated lung malignancy suspected -COPD and uses O2 at night -hypertension -allergic rhinitis -hypothyroidism -GERD -hyperlipidemia -impaired hearing -edentulous -walks with unsteady gait and uses from Will walker, Surgical history includes left and right knee arthroplasty. -chest CT on 10/23/15 indicated lung malignancy suspected FAMILY PSYCHIATRIC HISTORY: Patient denies SOCIAL HISTORY: Resident at [facility] which is located in [facility], where she is in independent living. Patient is . 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 limited support system. SUBSTANCE ABUSE HISTORY: Patient has a history of smoking 50 years, denies alcohol and illicit drug use. LEGAL HISTORY: Patient denies VITAL SIGNS: See below. wnl to include pulse oximetry and temperature. LABORATORY DATA: Please see below. DISCHARGE MEDICATIONS from this medical admission include: - aspirin 81 mg half a tablet daily - bisoprolol 0.5 mg half a tablet daily - calcium carbonate 500 mg daily - clonazepam 0.25 mg by mouth twice a day as needed for agitation - vitamin B12 500 mcg by mouth daily - Lasix 40 mg by mouth daily - Bacid one tablet by mouth daily - loperamide 2 mg by mouth as needed for diarrhea - milk of magnesia 30 mg by mouth suspension for constipation - nortriptyline 75 mg at bedtime - omeprazole 20 mg by mouth daily - potassium chloride 20 mEq every 2 days - prednisone 10 mg by mouth daily - quetiapine fumarate 25 mg by mouth twice a day - Advair Diskus one puff inhaled twice a day - simvastatin 20 mg at bedtime Valsartan was discontinued when the patient was discharged. MENTAL STATUS EXAMINATION: Patient is a 70-year-old female who is withdrawn, resistant to assessment, provides minimal information, makes limited eye contact, disheveled, dressed in hospital clothing, is lethargic, appears stated age. Patient ambulates with walker,unsteady gait. Speech: Is slow, repetitive, logical and coherent, of low volume Language skills are appear intact. Thought processes: Linear Thought content: rational, logical, paucity Description of abnormal or psychotic thoughts: Denies hallucinations, delusions , preoccupation with violence, homicidal or suicidal ideation, and obsessions, none reported or observed Judgment: Poor to fair. Insight: Poor to fair. Orientation to time, person, and place. Recent and remote memory: Unable to assess Attention span and concentration: Fair Language: Intact Fund of knowledge: Requires further evaluation. Mood: depressed Affect: Flat PROBLEM LIST: Passive suicidal ideation Depression Anxiety Multiple physical health challenges Limited support Limited coping skills Dissatisfaction with housing ASSESSMENT: Unspecified mood disorder due to another medical condition: Lung cancer, COPD, HTN RECOMMENDATIONS: -Patient's oxygen saturation has remained stable on 2 liters for several days and she had completed a course of antibiotics. -Hospitalist reports patient is medically cleared. -Recommend transfer to inpatient mental health unit (IMHU) for ongoing evaluation of patient's safety, ongoing suicidal ideation/ significant depressive symptoms. -Patient does not want to return to [place], indicates she does not know where she wants to live after discharge from hospital. -Will start Zoloft 50 mg by mouth daily for depressive symptoms. -Patient to remain on current psychotropic meds as currently prescribed until inpatient mental health unit provider evaluation. -Discussion of antidepressant recommendations to patient per IMHU provider. -Recommended Vitals every 6 hours to include pulse oximetry and temperature -Recommend Patient be placed on I and O monitoring -Recommend patient capacity evaluation. -Recommend approaching patient again for thoracentesis and collection of fluid for cancer cell evaluation. -Consider palliative care consult if lung cancer is confirmed. Time spent: 60 minutes Vital Signs Vital Signs Date Time Temp Pulse Resp B/P Pulse Ox O2 Delivery O2 Flow Rate FiO2 10/31/16 14:00 97.8 92 18 142/64 95 Nasal Cannula 2.0 Home Medications Current Medications Current Medications Acetaminophen 650 mg 650 mg Q4HP PRN PO MILD PAIN OR FEVER Last administered on 10/28/16 20:38; Start 10/21/16 at 15:15; Stop 10/31/16 at 15:45; Status DC Albuterol/ Ipratropium (Duoneb (Ipr 0.5mg/Alb 2.5mg)) 3 ml Q2HP PRN NEB SOB/ WHEEZING Last administered on 10/26/16 20:01; Start 10/21/16 at 15:30; Stop at 15:45; Status DC Albuterol/ Ipratropium (Duoneb (Ipr 0.5mg/Alb 2.5mg)) 3 ml RQ6H NEB Last administered on 10/31/16 14:07; Start 10/21/16 at 20:00; Stop 10/31/16 at 15:45 ; Status DC Artificial Tears (Akwa Tears) 1 drop BID PRN OU DRY EYES; Start 10/21/16 at 15: 30; Stop 10/31/16 at 15:45; Status DC Aspirin (Aspirin Chewable) 40.5 mg DAILY PO Last administered on 10/30/16 16: 20; Start 10/22/16 at 09:00; Stop 10/31/16 at 15:45; Status DC Bisoprolol Fumarate (Zebeta) 2.5 mg DAILY PO Last administered on 10/30/16 16: 19; Start 10/22/16 at 09:00; Stop 10/31/16 at 15:45; Status DC Calcium Carbonate (Tums) 500 mg DAILY PO Last administered on 10/30/16 16:20; Start 10/22/16 at 09:00; Stop 10/31/16 at 15:45; Status DC Ceftriaxone Sodium/Dextrose (Rocephin/ Dextrose 5% Mini-Bag Plus) 50 ml @ 100 mls/hr Q24H IV Last administered on 10/29/16 17:10; Start 10/26/16 at 16:00; Stop 10/30/16 at 19:53; Status DC Cephalexin Monohydrate (Keflex) 500 mg BID PO Last administered on 10/26/16 10 :08; Start 10/24/16 at 09:00; Stop 10/26/16 at 15:53; Status DC Clonazepam (KlonoPIN) 0.25 mg BID PRN PO ANXIETY/AGITATION Last administered on 10/21/16 23:01; Start 10/21/16 at 16:00; Stop 10/22/16 at 00:15; Status DC Clonazepam (KlonoPIN) 0.5 mg BID PO ; Start 10/21/16 at 21:00; Stop 10/21/16 at 21:00; Status DC Clonazepam 0.25 mg 0.25 mg BID PO Last administered on 10/30/16 22:48; Start 10/22/16 at 09:00; Stop 10/31/16 at 15:45; Status DC Cyanocobalamin (Vitamin B12) 500 mcg DAILY PO Last administered on 10/30/16 16 :19; Start 10/22/16 at 09:00; Stop 10/31/16 at 15:45; Status DC Docusate Sodium (Colace) 200 mg QHS PO Last administered on 10/30/16 22:48; Start 10/21/16 at 21:00; Stop 10/31/16 at 15:45; Status DC Fluticasone Propionate (Flonase 0.05% Nasal War) 1 spray DAILY NA Last administered on 10/29/16 09:29; Start 10/22/16 at 09:00; Stop 10/31/16 at 15:45 ; Status DC Furosemide (Lasix) 40 mg DAILY PO ; Start 10/31/16 at 09:00; Stop 10/31/16 at 15 :45; Status DC Furosemide 20 mg 20 mg DAILY IV Last administered on 10/29/16 09:32; Start at 09:00; Stop 10/30/16 at 17:58; Status DC Levothyroxine Sodium (Synthroid) 0.125 mg DAILY@06 PO Last administered on 10/31 06:06; Start 10/22/16 at 06:00; Stop 10/31/16 at 15:45; Status DC Meropenem/Dextrose (Merrem/Dextrose 5% Mini-Bag Plus) 100 ml @ 200 mls/hr Q8H IV Last administered on 10/24/16 03:50; Start 10/21/16 at 20:00; Stop at 07:03; Status DC Nortriptyline HCl 75 mg 75 mg QHS PO Last administered on 10/30/16 22:49; Start 10/21/16 at 21:00; Stop 10/31/16 at 15:45; Status DC Nystatin (Mycostatin) 5 ml BID SS Last administered on 10/30/16 22:50; Start 10/30/16 at 21:00; Stop 10/31/16 at 15:45; Status DC Omeprazole (PriLOSEC) 20 mg DAILY PO Last administered on 10/30/16 16:18; Start 10/22/16 at 09:00; Stop 10/31/16 at 15:45; Status DC Patient Own Medication (Patient'S Own Med) trintellix 5 mg po daily DAILY PO Last administered on 10/30/16 16:21; Start 10/22/16 at 09:00; Stop 10/31/16 at 15:45; Status DC Potassium Chloride 20 meq/ IV Miscellaneous Supplies 100 ml @ 100 mls/hr ASDIRECTED IV ; Start 10/26/16 at 14:00; Stop 10/26/16 at 14:11; Status DC Potassium Chloride 40 meq 40 meq DAILY PO Last administered on 10/30/16 16:19 ; Start 10/26/16 at 09:00; Stop 10/31/16 at 15:45; Status DC Potassium Chloride/IV Miscellaneous Supplies (KCl 10meq In 100ml Swi (Krun)) 100 ml @ 100 mls/hr 1T@15,16,17,18 IV Last administered on 10/26/16 23:20; Start 10/26/16 at 15:00; Stop 10/26/16 at 23:59; Status DC Potassium Chloride/Sodium Chloride 1,000 ml @ 125 mls/hr Q8H IV ; Start at 19:13; Stop 10/21/16 at 19:18; Status DC Potassium Chloride/Sodium Chloride (KCL 20MEQ in NS 1000ML) 1,000 ml @ 125 mls/ hr Q8H IV Last administered on 10/23/16 06:07; Start 10/21/16 at 19:30; Stop 10/23/16 at 07:44; Status DC Potassium Chloride/Sodium Chloride (KCl/Nacl 0.9%) 1,010 ml @ 125 mls/hr Q8H5M IV ; Start 10/21/16 at 15:11; Stop 10/21/16 at 19:13; Status DC Prednisone (Deltasone) 10 mg DAILY PO Last administered on 10/30/16 16:20; Start 10/22/16 at 09:00; Stop 10/31/16 at 15:45; Status DC Quetiapine Fumarate (SEROquel) 25 mg BID PO Last administered on 10/30/16 22: 48; Start 10/21/16 at 21:00; Stop 10/31/16 at 15:45; Status DC Salmeterol Xinafoate/ Fluticasone (Advair Diskus 250/50) 1 puff BID INH Last administered on 10/31/16 07:08; Start 10/21/16 at 21:00; Stop 10/31/16 at 15:45 ; Status DC Simvastatin (Zocor) 20 mg QHS PO Last administered on 10/30/16 22:50; Start at 21:00; Stop 10/31/16 at 15:45; Status DC Sodium Chloride (Nacl 0.45%) 1,000 ml @ 60 mls/hr [id number] IV Last administered on 10/24/16 03:50; Start 10/23/16 at 07:45; Stop 10/24/16 at 07:03 ; Status DC Scheduled (Flonase Allergy Relief) 50 Mcg/Act Spr 1 SPRAY NA DAILY (Reported) (One-A-Day Vitacraves Chiquita) 1 Chw Chw 1 CHW PO DAILY (Reported) (Bisoprolol Fumarate/[place] 5-6.25 mg) 1 Tab Tab 0.5 TAB PO DAILY (Reported) Acetaminophen (Acetaminophen ER) 650 Mg Tab 650 MG PO BID (Reported) Aspirin (Aspirin 81) 81 Mg Tab 40.5 MG PO DAILY (Reported) Calcium Carbonate (Calcium Carbonate) 500 Mg Chw 500 MG PO DAILY (Reported) Clonazepam (Clonazepam) 0.5 Mg Tab 0.25 MG PO BID ANXIETY/AGITATION (Reported) Cyanocobalamin (Vitamin B12) 500 Mcg Tab 500 MCG PO DAILY (Reported) Docusate Sodium (Colace) 100 Mg Cap 200 MG PO QHS (Reported) Furosemide (Furosemide) 40 Mg Tab 40 MG PO DAILY (Reported) Lactobacillus Acidophilus (Bacid) 1 Tab Tab 1 TAB PO DAILY (Reported) Levothyroxine Sodium (Synthroid) 125 Mcg Tab 125 MCG PO DAILY (Reported) Nicotine (Nicoderm Cq) 21 Mg/24 Hr Dis 21 MG TD DAILY SMOKING CESSATION ( Reported) Nitrofurantoin Monohydrate Mac (Macrobid) 100 Mg Cap 100 MG PO BID uti (Reported ) Nortriptyline HCl (Nortriptyline HCl) 75 Mg Cap 75 MG PO QHS (Reported) Omeprazole (Omeprazole) 20 Mg Cap 20 MG PO DAILY (Reported) Potassium Chloride (Klor-Con M10) 10 Meq Tabcr 20 MEQ PO Q2D (Reported) Prednisone (Prednisone) 10 Mg Tab 10 MG PO DAILY (Reported) Quetiapine Fumerate (Quetiapine Fumarate) 50 Mg Tab 25 MG PO BID MOOD (Reported ) Salmeterol/Fluticasone (Advair Diskus 250-50 Mcg/Dose) 14 Puff/Inhaler Aerp 1 PUFF INH BID (Reported) Simvastatin (Simvastatin) 20 Mg Tab 20 MG PO QHS (Reported) Valsartan (Valsartan) 40 Mg Tab 40 MG PO DAILY (Reported) Vortioxetine Hydrobromide (Trintellix) 5 Mg Tab 5 MG PO DAILY (Reported) Scheduled PRN Albuterol/Ipratropium (Ipratropium [place]/Albut 0.5-2.5 (3) mg/3Ml) 1 Pio Pio 1 PIO INH TID PRN PRN SHORTNESS OF BREATH (Reported) Artificial Tears (Artificial Tears) 1.4 % Pio 1 DROP OU BID PRN PRN DRY EYES ( Reported) Chlorphenir/Hydrocod Polistir (Tussionex Pennkinetic Ext 10-8 mg/5Ml) 1 Yulisa Yulisa 5 ML PO Q12H PRN PRN COUGH (Reported) Loperamide HCl (Loperamide A-D) 2 Mg Tab 2 MG PO PRN DIARRHEA (Reported) Miscellaneous Medications Aluminum/Magnesium/Simeth (Maalox Advanced Maximum S 400-400-40 mg/5Ml) 1 Yulisa Yulisa 30 ML PO HEARTBURN/INDIGESTION (Reported) Milk Of Magnesia (Milk of Magnesia) 1,200 Mg/15 Ml Yulisa 30 ML PO CONSTIPATION ( Reported) Allergies Coded Allergies: Penicillins (Verified Allergy, Severe, SWELLING ALL OVER, 10/26/16) HAS TOLERATED 1st & 3rd GEN CEPHALOSPORINS w/o PROBLEM Latex (Verified Allergy, Mild, rash, 10/31/16) Naproxen (Verified Allergy, Unknown, VIOXX, 12/16/12) Penicillins Cross Reactors (Verified Allergy, Unknown, 12/16/12) TANNER RICO MD Nov 01, 2016 16:15 Acetaminophen (Acetaminophen ER) 650 Mg Tab 650 MG PO BID (Reported) Aspirin (Aspirin 81) 81 Mg Tab 40.5 MG PO DAILY (Reported) Calcium Carbonate (Calcium Carbonate) 500 Mg Chw 500 MG PO DAILY (Reported) Clonazepam (Clonazepam) 0.5 Mg Tab 0.25 MG PO BID ANXIETY/AGITATION (Reported) Cyanocobalamin (Vitamin B12) 500 Mcg Tab 500 MCG PO DAILY (Reported) Docusate Sodium (Colace) 100 Mg Cap 200 MG PO QHS (Reported) Furosemide (Furosemide) 40 Mg Tab 40 MG PO DAILY (Reported) Lactobacillus Acidophilus (Bacid) 1 Tab Tab 1 TAB PO DAILY (Reported) Levothyroxine Sodium (Synthroid) 125 Mcg Tab 125 MCG PO DAILY (Reported) Nicotine (Nicoderm Cq) 21 Mg/24 Hr Dis 21 MG TD DAILY SMOKING CESSATION ( Reported) Nitrofurantoin Monohydrate Mac (Macrobid) 100 Mg Cap 100 MG PO BID uti (Reported ) Nortriptyline HCl (Nortriptyline HCl) 75 Mg Cap 75 MG PO QHS (Reported) Omeprazole (Omeprazole) 20 Mg Cap 20 MG PO DAILY (Reported) Potassium Chloride (Klor-Con M10) 10 Meq Tabcr 20 MEQ PO Q2D (Reported) Prednisone (Prednisone) 10 Mg Tab 10 MG PO DAILY (Reported) Quetiapine Fumerate (Quetiapine Fumarate) 50 Mg Tab 25 MG PO BID MOOD (Reported ) Salmeterol/Fluticasone (Advair Diskus 250-50 Mcg/Dose) 14 Puff/Inhaler Aerp 1 PUFF INH BID (Reported) Simvastatin (Simvastatin) 20 Mg Tab 20 MG PO QHS (Reported) Valsartan (Valsartan) 40 Mg Tab 40 MG PO DAILY (Reported) Vortioxetine Hydrobromide (Trintellix) 5 Mg Tab 5 MG PO DAILY (Reported) Scheduled PRN Albuterol/Ipratropium (Ipratropium [place]/Albut 0.5-2.5 (3) mg/3Ml) 1 Pio Pio 1 PIO INH TID PRN PRN SHORTNESS OF BREATH (Reported) Artificial Tears (Artificial Tears) 1.4 % Pio 1 DROP OU BID PRN PRN DRY EYES ( Reported) Chlorphenir/Hydrocod Polistir (Tussionex Pennkinetic Ext 10-8 mg/5Ml) 1 Yulisa Yulisa 5 ML PO Q12H PRN PRN COUGH (Reported) Loperamide HCl (Loperamide A-D) 2 Mg Tab 2 MG PO PRN DIARRHEA (Reported) Miscellaneous Medications Aluminum/Magnesium/Simeth (Maalox Advanced Maximum S 400-400-40 mg/5Ml) 1 Yulisa Yulisa 30 ML PO HEARTBURN/INDIGESTION (Reported) Milk Of Magnesia (Milk of Magnesia) 1,200 Mg/15 Ml Yulisa 30 ML PO CONSTIPATION ( Reported) Allergies Coded Allergies: Penicillins (Verified Allergy, Severe, SWELLING ALL OVER, 10/26/16) HAS TOLERATED 1st & 3rd GEN CEPHALOSPORINS w/o PROBLEM Latex (Verified Allergy, Mild, rash, 10/31/16) Naproxen (Verified Allergy, Unknown, VIOXX, 12/16/12) Penicillins Cross Reactors (Verified Allergy, Unknown, 12/16/12) TANNER RICO MD Nov 01, 2016 16:15
== END 2016-10-31 15:40 | DRG 683 ==
LOC: M MS5PR 18:40 → PREINTOOBSV 18:46 → PREOBSVTOIN 18:48
PROVIDERS: ADMIT Internal Medicine; ATTEND Internal Medicine
DX: N17.9 Acute kidney failure, unspecified (principal); N39.0 Urinary tract infection, site not specified; J90 Pleural effusion, not elsewhere classified; B37.0 Candidal stomatitis; C34.2 Malignant neoplasm of middle lobe, bronchus or lung; J44.9 Chronic obstructive pulmonary disease, unspecified; F32.9 Major depressive disorder, single episode, unspecified; E03.9 Hypothyroidism, unspecified; I10 Essential (primary) hypertension; K21.9 Gastro-esophageal reflux disease without esophagitis; E78.5 Hyperlipidemia, unspecified; E87.6 Hypokalemia; E27.9 Disorder of adrenal gland, unspecified; E86.0 Dehydration; B95.5 Unspecified streptococcus as the cause of diseases classified elsewhere; Z79.82 Long term (current) use of aspirin; Z79.899 Other long term (current) drug therapy; Z79.52 Long term (current) use of systemic steroids; Z88.8 Allergy status to other drugs, medicaments and biological substances; Z88.0 Allergy status to penicillin; Z91.040 Latex allergy status

== ENCOUNTER 2016-10-31 15:45 | Inpatient (IN) | payer MEDICARE, MEDICAID ==
[~2016-10-31] VITALS: Ht 154.9 cm; Wt 79.9 kg
[~2016-10-31 15:45] MED LIST changes: +MAALSUS20 PO; +MACR100C3 PO; +MILKSUS PO; +NICO21DI5 TD
[2016-10-31 16:04] VITALS: BP 142/63
[2016-10-31] MEDS ORDERED: MAALOX 30 ML SUSP *UDC PO PRN (18:00)
[2016-10-31] MEDS ORDERED: MOM 30ML SUSPENSION UDC PO PRN (18:00)
[2016-10-31] MEDS ORDERED: POLYVINYL ALCOHOL OPHTH SOLN 15 ML(LIQUITEARS) OU PRN (18:00)
[2016-10-31] MEDS ORDERED: ACETAMINOPHEN TAB 650MG DOSE (2X325MG) PO PRN (18:00)
[2016-10-31] MEDS ORDERED: IPRATROPIUM 0.5MG/ALBUTEROL 2.5MG INH SOL UD 3ML (DUONEB)(J7620) NEB PRN (18:00)
[2016-10-31] MEDS ORDERED: traZODone 50 MG TAB PO PRN (18:00)
[2016-10-31] MEDS ORDERED: CALCIUM CARBONATE 500 MG CHEW U/D PO PRN (18:00)
[2016-10-31] MEDS ORDERED: NORTRIPTYLINE 25 MG CAP PO SCH (21:00)
[2016-10-31] MEDS: SIMVASTATIN 20 MG TAB PO SCH (21:59)
[2016-10-31] MEDS: QUEtiapine FUMARATE 25 MG TAB PO SCH (21:59)
[2016-10-31] MEDS: NYSTATIN 500,000 U/5 ML SUSP UDC SS SCH (21:59)
[2016-10-31] MEDS: clonazePAM 0.5 MG TAB PO SCH (21:59)
[2016-10-31] MEDS: DOCUSATE SODIUM 100 MG CAP PO SCH (22:01)
[2016-10-31] MEDS: ADVAIR DISKUS 250/50 INH PWD INH SCH (22:03)
[2016-11-01] MEDS: LEVOTHYROXINE 0.125 MG TAB (125 MCG) PO SCH (05:56)
[2016-11-01 06:31] VITALS: BP 137/67
[2016-11-01] MEDS: CYANOCOBALAMIN 500 MCG TAB PO SCH (09:00)
[2016-11-01] MEDS: BISOPROLOL FUM 2.5 MG PER 1/2TAB PO SCH (09:00)
[2016-11-01] MEDS: ASPIRIN 81 MG ENTERIC TAB PO SCH (09:00)
[2016-11-01] MEDS: ADVAIR DISKUS 250/50 INH PWD INH SCH ×2 (09:00→21:05)
[2016-11-01] MEDS: POTASSIUM CHLORIDE 10 MEQ SR TABLET PO SCH (09:00)
[2016-11-01] MEDS: TRINTELLIX 5 MG PO SCH (09:00)
[2016-11-01] MEDS: predniSONE 10 MG TAB PO SCH (09:00)
[2016-11-01] MEDS: clonazePAM 0.5 MG TAB PO SCH (09:00)
[2016-11-01] MEDS: QUEtiapine FUMARATE 25 MG TAB PO SCH (09:00)
[2016-11-01] MEDS: NYSTATIN 500,000 U/5 ML SUSP UDC SS SCH ×2 (09:00→21:04)
[2016-11-01] MEDS: SERTRALINE HCL 50 MG TAB PO SCH (09:00)
[2016-11-01] MEDS: OMEPRAZOLE 20 MG CAP PO SCH (09:00)
[2016-11-01] MEDS: FUROSEMIDE 40 MG TAB PO SCH (09:00)
[2016-11-01] MEDS ORDERED: VENLAFAXINE **XR** 37.5 MG CAPSULE PO ONE (12:30)
[2016-11-01 18:00] VITALS: BP 148/67
[2016-11-01] MEDS ORDERED: traZODone 25MG PER 1/2 TABLET PO SCH (21:00)
[2016-11-01] MEDS: SIMVASTATIN 20 MG TAB PO SCH (21:04)
[2016-11-01] MEDS: DOCUSATE SODIUM 100 MG CAP PO SCH (21:05)
--- NOTE | 2016-11-01 21:43 | MHHPE ---
DATE OF ADMISSION: 10/31/2016 LEGAL STATUS AT ADMISSION: Involuntary legal status. CHIEF COMPLAINT: "I'm tired of life." HISTORY OF PRESENT ILLNESS: A 70-year-old female with a long history of major depression transferred from the medical floor where she was stabilized from dehydration and urinary tract infection (UTI). The patient reports that she has been feeling very depressed, "sick all over" with very low energy, poor self esteem, no appetite, feeling helpless and hopeless, intermittent suicidal thoughts and no wishes to live. The patient has been refusing the medication for the last several days. The patient reports that she has been feeling very depressed for the last four months. During the interview, there is no evidence of psychotic symptoms. No auditory or visual hallucinations or delusions. The patient has been treated with Zoloft, Pamelor, Seroquel, Klonopin, and trazodone but she has not been compliant lately. PAST MEDICAL HISTORY: The patient has been diagnosed with chronic obstructive pulmonary disease (COPD), hypertension, hypothyroidism, gastroesophageal reflux disease (GERD), hyperlipidemia, impaired hearing. It also noted in October [address] indicating a lung malignancy suspected. PAST PSYCHIATRIC HISTORY: The patient reports being diagnosed with depression for "a very long time." She reports having frequent episodes. She was admitted to our unit in 2009, at that time with severe depression and was treated with Effexor XR 75 mg by mouth every morning. FAMILY HISTORY: Positive for depression in three sisters and a father who suffers from alcohol dependency. SOCIAL HISTORY: The patient lives in assisted-living facility for the last four years. She is a . The patient reports she has "good friends." SUBSTANCE ABUSE HISTORY: The patient denies any current or past problems with drugs or alcohol. REVIEW OF SYSTEMS: CONSTITUTIONAL: No weight loss, fever, chills, weakness, or fatigue. HEENT: No visual loss, blurry vision, double vision, or yellow sclerae. No hearing loss, sneezing, congestion, runny nose, or sore throat. SKIN: No rash or itching. CARDIOVASCULAR: No chest pain, chest pressure, chest discomfort, palpitations, or edema. RESPIRATORY: The patient has some degree of shortness of breath. No cough or sputum. GASTROINTESTINAL: No anorexia, nausea, vomiting, or diarrhea. No abdominal pain or blood. GENITOURINARY: No burning or pain on urination. NEUROLOGICAL: No headache, dizziness, syncope, paralysis, ataxia, numbness or tingling. MUSCULOSKELETAL: No muscle pain, back pain, joint pain or stiffness. HEMATOLOGIC: No anemia, bleeding, or bruising. LYMPHATICS: No history of a splenectomy. ENDOCRINOLOGIC: No reports of sweating, cold or heat intolerance. No polyuria or polydipsia. ALLERGIES: No history of asthma, hives, eczema or rhinitis. PHYSICAL EXAMINATION: As per physician electrical assistant. LABORATORY DATA: At admission were not drawn since the patient was just transferred from the medical floor. MENTAL STATUS EXAMINATION: Patient is dressed in hospital clothes. Patient is cooperative but guarded. Speech is soft and monotone. Has poor eye contact. Mood is very depressed and anxious. Affect is blunted. Patient is oriented to time, place, person, and situation. Attention and concentration is poor. Memory is also impaired. Patient denies auditory or visual hallucinations. Patient denies paranoid, persecutory, somatic, grandiose, or zoroastrian delusions. Patient reports intermittent suicidal thoughts and no wishes to live. No homicidal ideation. Insight and judgment are poor. DIAGNOSES: AXIS I: Major depressive disorder. AXIS II: Deferred. AXIS III: Chronic obstructive pulmonary disease (COPD), hypertension, hypothyroidism, gastroesophageal reflux disease (GERD), hyperlipidemia, impaired hearing, rule out lung malignancy. INITIAL TREATMENT PLAN: Patient was admitted involuntarily. Complete history was obtained. With her permission, family will be contacted and database will be expanded. Her medication regime will be reviewed and changed accordingly. She will be provided with protected environment. She will be treated with individual, group, and milieu therapy. She will also receive supportive psychoeducation. Discharge planning will commence immediately. Length of stay will be between seven and 10 days. Outpatient followup will be strongly recommended. The treatment plan will focus initially on depression, risk for suicide, and noncompliance.
[2016-11-01] MEDS: MAGIC MOUTHWASH SUSPENSION BTL SS SCH (23:00)
[2016-11-02] MEDS: LEVOTHYROXINE 0.125 MG TAB (125 MCG) PO SCH (05:43)
[2016-11-02 06:37] VITALS: BP 123/79
[2016-11-02] MEDS: MAGIC MOUTHWASH SUSPENSION BTL SS SCH ×4 (06:43→22:22)
--- NOTE | 2016-11-02 07:06 | HPE ---
DATE OF ADMISSION: 10/31/2016 Please refer to psychiatric history and evaluation for further details on this admission. This examination and history is intended for medical issues which may need treatment, followup or consult on this 70-year-old female who was transferred down from 5 [place] floor back to the inpatient mental health unit after having been treated for dehydration and urinary tract infection (UTI). SOCIAL HISTORY: She is a resident at [facility] assisted living in [place]. She is . She has five children. She smoked for 50 plus years. ETOH none. IV drug use none. FAMILY HISTORY: Mother of lung cancer. Father myocardial infarction (NC) at 51. She has three siblings who their health is unknown. PAST MEDICAL HISTORY: Chronic obstructive pulmonary disease (COPD). She wears oxygen at night. History of abnormal PET scan of lungs 11/2015. History of lung CA, patient opted for no treatment. Hypertension. Allergic rhinitis. Hypothyroidism. Gastroesophageal reflux disease (GERD). Hyperlipidemia. Anxiety. Depression. Edentulous. She has reduced hearing. She has non-steady gait. She uses a walker. Multi-joint arthritis. PAST SURGICAL HISTORY: Left knee arthroplasty. Right knee arthroplasty. CURRENT MEDICATIONS: - acetaminophen 650 mg by mouth every 6 hours as needed for pain - DuoNeb three times daily as needed for shortness of breath or wheeze - Artificial tears one drop both eyes twice daily as needed for dry eyes - aspirin 81 mg one half tablet by mouth daily - bisoprolol 0.5 mg by mouth daily - calcium carbonate 500 mg chewable daily - clonazepam 0.25 mg by mouth twice daily - vitamin B12 500 mcg by mouth daily - Colace 200 mg by mouth daily at bedtime - Flonase one spray each nostril daily - Lasix 40 mg by mouth daily - lactobacillus acidophilus one tablet by mouth daily - levothyroxine 125 mcg by mouth daily - loperamide 2 mg tablet by mouth as needed - Nicoderm patch 21 mg daily - nortriptyline 75 mg by mouth daily at bedtime - omeprazole 20 mg by mouth daily - MultiVite one daily - potassium 20 mEq by mouth every 2 days - prednisone 10 mg by mouth daily - Seroquel 25 mg by mouth twice daily - Advair discus 250/50 one inhalation twice daily - simvastatin 200 mg by mouth daily at bedtime - Valsartan 40 mg by mouth daily - Trintellex 5 mg by mouth daily REVIEW OF SYSTEMS: No current complaints of headache. No blurry or double vision. No fever. No chills. No tinnitus. No hoarseness. She has difficulty swallowing secondary to a sore mouth and chapped lips. No tinnitus. No hoarseness. Breasts no masses. CARDIOVASCULAR: No complaints of chest pain, shortness of breath, palpitations or edema. RESPIRATORY: She has a pleural effusion she does not want treated. She has a history of chronic obstructive pulmonary disease (COPD) and has home oxygen at night. No hemoptysis. No orthopnea. No wheeze. No chronic cough. No mucous production. She has a history of lung CA which she has opted for no treatment. GI: She has decreased appetite. She has nausea. No vomiting. No diarrhea. No complaints of abdominal pain. No hematochezia, no melena. : No hematuria, dysuria or frequency. MUSCULOSKELETAL: No joint redness or swelling. ENDOCRINE: She has history of hypothyroidism. NEUROLOGICAL: No history of seizures. PSYCHOLOGICAL: See psychiatric history of present illness. PHYSICAL EXAMINATION: 70-year-old cooperative female in no acute distress. Height 61 inches, weight 79.9 kg. BMI 35. 137/67. Pulse 91, respirations 16, temperature 97.6. The patient is alert and oriented times three. Pupils equal and reactive to light. Extraocular movements intact. Cornea and sclera clear. Conjunctiva normal. No facial asymmetry. Buccal mucosa is very dry. Tongue is very reddened. Has some small ascus ulcers on the inner lower lip. Tongue is midline. Neck is supple, without lymphadenopathy. No thyromegaly. No goiter. Carotids 2+ without bruit. Chest has decreased breath sounds. No wheeze or retraction. Heart is regular. Abdomen benign. Bowel sounds positive. Genitourinary ()/Rectal: Not done. Extremities show arthritic changes. No cyanosis, clubbing or edema. Peripheral pulses equal and palpable bilaterally. IMPRESSION/PLAN: 1. Ascus ulcers of her mouth. Will add magic mouthwash 5 mL before meals and at bedtime. Start today. Crack lower lip. Will need Vaseline twice daily to lip. 2. History of hypertension, stable. 3. History of hypothyroidism. Continue levothyroxine. 4. History of gastroesophageal reflux disease. Continue Protonix. 5. Encouraged oral fluid intake. 6. Psychiatric plan per psychiatry. MTDD
[2016-11-02 07:55] LABS: BASO % 0.5 % (0.0-1.0); EOS # 0.1 K/mm3 (0.0-0.50); LARGE UNSTAINED CELL # 0.2 K/mm3 (0.0-0.4); LARGE UNSTAINED CELL % 2.1 % (0.0-4.0); LYMPH # 2.1 K/mm3 (1.5-4.5); LYMPH % 23.8 % (24.0-44.0); MEAN CORPUSCULAR HEMOGLOBIN 30.4 pg (27.0-33.0); MEAN CORPUSCULAR HGB CONC 32.4 g/dl (32.0-36.5); MEAN CORPUSCULAR VOLUME 93.9 fl (80.0-96.0); MONO # 0.6 K/mm3 (0.0-0.8); MONO % 6.2 % (0.0-5.0); NEUTROPHILS % 66.3 % (36.0-66.0); PLATELET COUNT, AUTOMATED 291 k/mm3 (150-450); RED CELL DISTRIBUTION WIDTH 14.8 % (11.5-14.5)
[2016-11-02 08:30] LABS: ALBUMIN 2.8 GM/DL (3.2-5.2); ALBUMIN/GLOBULIN RATIO 0.76 (1.00-1.93); ALKALINE PHOSPHATASE 99 U/L (45-117); ALT/SGPT 53 U/L (12-78); ANION GAP 11 MEQ/L (8-16); AST/SGOT 38 U/L (15-37); BILIRUBIN,TOTAL 0.7 MG/DL (0.2-1.0); BLOOD UREA NITROGEN 11 MG/DL (7-18); CALCIUM LEVEL 9.1 MG/DL (8.8-10.2); CARBON DIOXIDE LEVEL 25 MEQ/L (21-32); CHLORIDE LEVEL 104 MEQ/L (98-107); CREATININE FOR GFR 0.66 MG/DL (0.55-1.02); GLOMERULAR FILTRATION RATE > 60.0 (>39); GLUCOSE, FASTING 77 MG/DL (83-110); POTASSIUM SERUM 3.9 MEQ/L (3.5-5.1); SODIUM LEVEL 140 MEQ/L (136-145); TOTAL PROTEIN 6.5 GM/DL (6.4-8.2)
[2016-11-02] MEDS: SERTRALINE HCL 50 MG TAB PO SCH (08:49)
[2016-11-02] MEDS: OMEPRAZOLE 20 MG CAP PO SCH ×2 (08:49→09:00)
[2016-11-02] MEDS: CYANOCOBALAMIN 500 MCG TAB PO SCH ×2 (08:49→09:00)
[2016-11-02] MEDS: VENLAFAXINE **XR** 75MG CAPSULE PO SCH ×2 (08:49→09:00)
[2016-11-02] MEDS: POTASSIUM CHLORIDE 10 MEQ SR TABLET PO SCH ×2 (08:49→09:00)
[2016-11-02] MEDS: predniSONE 10 MG TAB PO SCH ×2 (08:50→09:00)
[2016-11-02] MEDS: ASPIRIN 81 MG ENTERIC TAB PO SCH ×2 (08:50→09:00)
[2016-11-02] MEDS: NYSTATIN 500,000 U/5 ML SUSP UDC SS SCH ×2 (08:50→22:22)
[2016-11-02] MEDS: FUROSEMIDE 40 MG TAB PO SCH ×2 (08:50→09:00)
[2016-11-02] MEDS: BISOPROLOL FUM 2.5 MG PER 1/2TAB PO SCH ×2 (08:50→09:00)
[2016-11-02] MEDS: TRINTELLIX 5 MG PO SCH (08:50)
[2016-11-02] MEDS: ADVAIR DISKUS 250/50 INH PWD INH SCH ×2 (08:51→21:00)
--- NOTE | 2016-11-02 14:57 | IPN ---
DATE: 11/02/2016 SUBJECTIVE: "I am feeling sick, I am nauseated." OBJECTIVE: The patient took oral medication yesterday but says that she has been feeling nauseated and has refused to take the medication this morning. The patient continues to be very depressed with very low energy, psychomotor retardation, restricted facial expression, voice is very low, poor and monotone. The patient continues having intermittent suicidal thoughts. Says was not able to sleep well last night but then she said that she slept 8 hours. MENTAL STATUS EXAMINATION: The patient is dressed in [facility]. The patient is somewhat cooperative. Eye contact is very poor. Speech is slow, monotone. Mood is depressed and anxious. Affect is restricted. No evidence of delusions or hallucinations. Memory, attention and concentration are impaired by her depression. Continues to have suicidal ideation. Insight and judgment poor. ASSESSMENT: 1. Major depressive disorder. PLAN: Her psychotropic medication has been minimized to Effexor XR 75 mg by mouth in the morning and trazodone 50 mg by mouth at night. Brintellix has been discontinued. Also, sertraline 50 mg has been discontinued. Klonopin has been discontinued. We will continue close observation. Continue medication management, individual and group therapy.
[2016-11-02 18:00] VITALS: BP 158/72
[2016-11-02] MEDS: DOCUSATE SODIUM 100 MG CAP PO SCH (21:00)
[2016-11-02] MEDS: SIMVASTATIN 20 MG TAB PO SCH (21:00)
[2016-11-02] MEDS: traZODone 50 MG TAB PO SCH (21:00)
[2016-11-03] MEDS: LEVOTHYROXINE 0.125 MG TAB (125 MCG) PO SCH (06:24)
[2016-11-03 06:35] VITALS: BP 131/61
[2016-11-03] MEDS: MAGIC MOUTHWASH SUSPENSION BTL SS SCH ×4 (06:47→21:00)
[2016-11-03] MEDS: ASPIRIN 81 MG ENTERIC TAB PO SCH (09:00)
[2016-11-03] MEDS: CYANOCOBALAMIN 500 MCG TAB PO SCH (09:00)
[2016-11-03] MEDS: ADVAIR DISKUS 250/50 INH PWD INH SCH ×2 (09:00→21:00)
[2016-11-03] MEDS: BISOPROLOL FUM 2.5 MG PER 1/2TAB PO SCH (09:00)
[2016-11-03] MEDS: NYSTATIN 500,000 U/5 ML SUSP UDC SS SCH ×2 (09:00→21:00)
[2016-11-03] MEDS: POTASSIUM CHLORIDE 10 MEQ SR TABLET PO SCH (09:00)
[2016-11-03] MEDS: VENLAFAXINE **XR** 75MG CAPSULE PO SCH (09:00)
[2016-11-03] MEDS: OMEPRAZOLE 20 MG CAP PO SCH (09:00)
[2016-11-03] MEDS: FUROSEMIDE 40 MG TAB PO SCH (09:00)
[2016-11-03] MEDS: predniSONE 10 MG TAB PO SCH (09:00)
[2016-11-03 09:26] LABS: MEAN CORPUSCULAR HEMOGLOBIN 31.3 pg (27.0-33.0); MEAN CORPUSCULAR HGB CONC 33.2 g/dl (32.0-36.5); MEAN CORPUSCULAR VOLUME 94.2 fl (80.0-96.0); RED CELL DISTRIBUTION WIDTH 14.8 % (11.5-14.5); WHITE BLOOD COUNT 9.1 K/mm3 (4.0-10.0)
[2016-11-03 09:40] LABS: ANION GAP 14 MEQ/L (8-16); BLOOD UREA NITROGEN 13 MG/DL (7-18); CALCIUM LEVEL 8.6 MG/DL (8.8-10.2); CARBON DIOXIDE LEVEL 24 MEQ/L (21-32); CHLORIDE LEVEL 105 MEQ/L (98-107); CREATININE FOR GFR 0.58 MG/DL (0.55-1.02); GLOMERULAR FILTRATION RATE > 60.0 (>39); GLUCOSE, FASTING 70 MG/DL (83-110); POTASSIUM SERUM 4.1 MEQ/L (3.5-5.1); SODIUM LEVEL 143 MEQ/L (136-145)
[2016-11-03] MEDS ORDERED: ONDANSETRON 4 MG ORAL DISINTEGRATING TAB (S0181) SL PRN (10:00)
--- NOTE | 2016-11-03 14:25 | IPNPDOC ---
[facility] Progress Note Progress Note DATE OF SERVICE: 11/03/16 History: This is the first day of this patient's hospital admission that this technical writer has met with patient. Patient has been lying in bed, not attending groups , isolating to room, makes no eye contact with technical writer and provides monosyllabic responses to some of technical writer's questions. Patient denies suicidal and homicidal ideation, denies audiovisual hallucinations, denies feeling anxious or depressed , and denies physical pain. Patient is observed to be using her oxygen at time of interaction and during other periodic checks completed by technical writer today. Patient shakes her head "no" when asked if she's been experiencing challenges with sleep. Per EMR, patient did not eat lunch or dinner yesterday, per unit staff patient consumed part of her breakfast this morning. Patient denied physical pain and presented with no signs of acute distress at time of interaction. When technical writer came into work this morning technical writer discovered that patient had refused medications and that a QMP had been generated for patient. Direct Marketing Manager expressed concerns to nursing and PA pertaining to patient's refusal of medications, and concerns about patient's physical health status. Direct Marketing Manager and PA approached M.D. who indicated patient is not being discharged, is not being evaluated for hospice, and is to be treated for nausea. Per EMR, patient received Zofran SL at approximately midday. Patient accepted her lidocaine and level thyroxine this morning, refused all other medications including psychotropic medications. This patient was also seen by attending M.D. date of entry. VITALS: See below NEW TEST RESULTS: New Lab results indicate low calcium and glucose, elevated RDW CURRENT MEDICATIONS: See below MENTAL STATUS EVALUATION: Patient is 70-year-old female who is observed to be lying in bed, declines to get up to interact with technical writer, makes poor eye contact , is not engageable, is unable or unwilling to cooperate for assessment purposes , is disheveled, appears stated age. Speech is limited, responds with monosyllabic responses when does respond, declines to respond much of the time, is of low volume, slow rate, monotone. Language skills are limited, perhaps by depression Thought processes including: Unable to assess. Thought content: Appears rational, logical. Abstract reasoning: Unable to assess. Description of associations: Unable to assess. Description of abnormal or psychotic thoughts: denies hallucinations, delusions , preoccupation with violence, homicidal or suicidal ideation, does not appear to be experiencing obsessions]. Judgment: Poor. Insight: Unable to assess. Orientation to time, place and person. Recent and remote memory: Unable to assess. Attention span and concentration: Unable to assess. Language: Unable to assess. Fund of knowledge: Unable to assess. Mood: Depressed. Affect: Flat. ASSESSMENT: Major depressive disorder. MANAGEMENT PLAN: Patient has been given Zofran in effort to reduce reported symptoms of nausea with treatment goal of encouraging patient to take psychotropic medications to address symptoms of depression and anxiety Patient's psychotropic medication has been minimized to Effexor XR 75 mg by mouth in the morning and trazodone 50 mg by mouth at night. Brintellix has been discontinued. Also, sertraline 50 mg has been discontinued. Klonopin has been discontinued. Monitor I and O Continue close observation. Continue medication management, individual and group therapy. Vital Signs Vital Signs Date Time Temp Pulse Resp B/P Pulse Ox O2 Delivery O2 Flow Rate FiO2 11/03/16 11:51 Nasal Cannula 11/03/16 09:00 108 131/61 11/03/16 06:35 99.1 20 11/02/16 08:30 2.0 10/31/16 16:04 94 Laboratory Data 24H Labs Laboratory Tests 2 11/03/16 08:55: Anion Gap 14, Blood Urea Nitrogen 13, Creatinine 0.58, Sodium Level 143, Potassium Level 4.1, Chloride Level 105, Carbon Dioxide Level 24, Calcium Level 8.6L, Glomerular Filtration Rate > 60.0 CBC/BMP Laboratory Tests 11/03/16 08:55 Calcium Level 8.6 L, Red Blood Count 4.27, Mean Corpuscular Volume 94.2, Mean Corpuscular Hemoglobin 31.3, Mean Corpuscular Hemoglobin Concent 33.2, Red Cell Distribution Width 14.8 H Current Medications Current Medications Acetaminophen (Tylenol Tab) 650 mg Q4HP PRN PO PAIN OR FEVER; Start 10/31/16 at 18:00; Stop 11/30/16 at 17:59 Al Hydrox/Mg Hydrox/Simethicone (Mylanta) 30 ml Q4HP PRN PO HEARTBURN/ INDIGESTION; Start 10/31/16 at 18:00; Stop 11/30/16 at 17:59 Albuterol/ Ipratropium (Duoneb (Ipr 0.5mg/Alb 2.5mg)) 3 ml Q6HP PRN NEB SOB/ WHEEZING; Start 10/31/16 at 18:00; Stop 11/30/16 at 17:59 Artificial Tears (Akwa Tears) 1 drop BIDP PRN OU DRY EYES; Start 10/31/16 at 18 :00; Stop 11/30/16 at 17:59 Aspirin (Ecotrin) 40.5 mg DAILY PO ; Start 11/01/16 at 09:00; Stop 12/01/16 at 08:59 Bisoprolol Fumarate (Zebeta) 2.5 mg DAILY PO ; Start 11/01/16 at 09:00; Stop at 08:59 Calcium Carbonate (Tums) 500 mg DAILYPRN PRN PO INDIGESTION; Start 10/31/16 at 18:00; Stop 11/30/16 at 17:59 Clonazepam (KlonoPIN) 0.25 mg BID PO Last administered on 10/31/16 21:59; Start 10/31/16 at 21:00; Stop 11/01/16 at 11:05; Status DC Cyanocobalamin (Vitamin B12) 500 mcg DAILY PO ; Start 11/01/16 at 09:00; Stop at 08:59 Docusate Sodium (Colace) 200 mg QHS PO Last administered on 11/01/16 21:05; Start 10/31/16 at 21:00; Stop 11/30/16 at 20:59 Furosemide (Lasix) 40 mg DAILY PO ; Start 11/01/16 at 09:00; Stop 12/01/16 at 08 :59 Levothyroxine Sodium (Synthroid) 0.125 mg DAILY@06 PO Last administered on 11/03 06:24; Start 11/01/16 at 06:00; Stop 12/01/16 at 05:59 Lidocaine/ Diphenhydr/Alum/ Mg/Simeth (Magic Mouthwash) 5ml SWISH AND SWALLOW ... ACHS SS Last administered on 11/03/16 12:24; Start 11/01/16 at 21:00; Stop 12/01/16 at 20:59 Magnesium Hydroxide (Milk Of Magnesia) 30 ml DAILYPRN PRN PO CONSTIPATION; Start 10/31/16 at 18:00; Stop 11/30/16 at 17:59 Nortriptyline HCl (Pamelor) 75 mg QHS PO Last administered on 10/31/16 21:59; Start 10/31/16 at 21:00; Stop 11/01/16 at 11:05; Status DC Nystatin (Mycostatin) 5 ml BID SS Last administered on 11/02/16 22:22; Start 10/31/16 at 21:00; Stop 11/07/16 at 20:59 Omeprazole (PriLOSEC) 20 mg DAILY PO ; Start 11/01/16 at 09:00; Stop 12/01/16 at 08:59 Ondansetron HCl (Zofran Odt) 4 mg Q6HP PRN SL NAUSEA OR VOMITING Last administered on 11/03/16 12:24; Start 11/03/16 at 10:00; Stop 12/03/16 at 09:59 Patient Own Medication (Patient'S Own Med) 5 ea DAILY PO Last administered on 08:50; Start 11/01/16 at 09:00; Stop 11/02/16 at 09:33; Status DC Potassium Chloride (Micro-K Extencaps) 40 meq DAILY PO ; Start 11/01/16 at 09:00 ; Stop 12/01/16 at 08:59 Prednisone (Deltasone) 10 mg DAILY PO ; Start 11/01/16 at 09:00; Stop 12/01/16 at 08:59 Quetiapine Fumarate (SEROquel) 25 mg BID PO Last administered on 10/31/16 21: 59; Start 10/31/16 at 21:00; Stop 11/01/16 at 11:05; Status DC Salmeterol Xinafoate/ Fluticasone (Advair Diskus 250/50) 1 puff BID INH Last administered on 11/02/16 08:51; Start 10/31/16 at 21:00; Stop 11/30/16 at 20:59 Sertraline HCl (Zoloft) 50 mg QAM PO Last administered on 11/02/16 08:49; Start 11/01/16 at 09:00; Stop 11/02/16 at 09:36; Status DC Simvastatin (Zocor) 20 mg QHS PO Last administered on 2/21/17at 21:04; Start at 21:00; Stop 11/30/16 at 20:59 Trazodone HCl (Desyrel) 25 mg QHS PO Last administered on 11/01/16t 21:05; Start 11/01/16 at 21:00; Stop 11/02/16 at 09:36; Status DC Trazodone HCl (Desyrel) 50 mg QHS PO ; Start 11/02/16 at 21:00; Stop 12/02/16 at 20:59 Trazodone HCl (Desyrel) 50 mg QHSP PRN PO INSOMNIA; Start 10/31/16 at 18:00; Stop 11/01/16 at 11:05; Status DC Venlafaxine HCl (Effexor Xr) 75 mg QAM PO ; Start 11/02/16 at 09:00; Stop at 08:59 Allergies Coded Allergies: Penicillins (Verified Allergy, Severe, SWELLING ALL OVER, 10/26/16) HAS TOLERATED 1st & 3rd GEN CEPHALOSPORINS w/o PROBLEM Latex (Verified Allergy, Mild, rash, 10/31/16) Naproxen (Verified Allergy, Unknown, VIOXX, 12/16/12) Penicillins Cross Reactors (Verified Allergy, Unknown, 12/16/12) Oriana Olmstead Nov 03, 2016 14:25
[2016-11-03 18:00] VITALS: BP 109/68
[2016-11-03] MEDS: SIMVASTATIN 20 MG TAB PO SCH (21:00)
[2016-11-03] MEDS: DOCUSATE SODIUM 100 MG CAP PO SCH (21:00)
[2016-11-03] MEDS: traZODone 50 MG TAB PO SCH (21:00)
[2016-11-04] MEDS: MAGIC MOUTHWASH SUSPENSION BTL SS SCH ×4 (06:15→22:08)
[2016-11-04] MEDS: LEVOTHYROXINE 0.125 MG TAB (125 MCG) PO SCH (06:16)
[2016-11-04 06:45] VITALS: BP 109/53
[2016-11-04 08:48] LABS: MEAN CORPUSCULAR HEMOGLOBIN 31.6 pg (27.0-33.0); MEAN CORPUSCULAR VOLUME 95.6 fl (80.0-96.0); RED CELL DISTRIBUTION WIDTH 14.7 % (11.5-14.5); WHITE BLOOD COUNT 8.6 K/mm3 (4.0-10.0)
[2016-11-04] MEDS: BISOPROLOL FUM 2.5 MG PER 1/2TAB PO SCH (09:00)
[2016-11-04] MEDS: FUROSEMIDE 40 MG TAB PO SCH (09:00)
[2016-11-04] MEDS: ASPIRIN 81 MG ENTERIC TAB PO SCH (09:00)
[2016-11-04] MEDS: POTASSIUM CHLORIDE 10 MEQ SR TABLET PO SCH (09:00)
[2016-11-04] MEDS: OMEPRAZOLE 20 MG CAP PO SCH (09:00)
[2016-11-04] MEDS: CYANOCOBALAMIN 500 MCG TAB PO SCH (09:00)
[2016-11-04] MEDS: VENLAFAXINE **XR** 75MG CAPSULE PO SCH ×2 (09:00→15:19)
[2016-11-04] MEDS: predniSONE 10 MG TAB PO SCH (09:00)
[2016-11-04 09:05] LABS: ALBUMIN 2.8 GM/DL (3.2-5.2); ALBUMIN/GLOBULIN RATIO 0.74 (1.00-1.93); ALKALINE PHOSPHATASE 102 U/L (45-117); ALT/SGPT 50 U/L (12-78); ANION GAP 14 MEQ/L (8-16); AST/SGOT 41 U/L (15-37); BILIRUBIN,TOTAL 0.6 MG/DL (0.2-1.0); BLOOD UREA NITROGEN 15 MG/DL (7-18); CALCIUM LEVEL 8.9 MG/DL (8.8-10.2); CARBON DIOXIDE LEVEL 23 MEQ/L (21-32); CHLORIDE LEVEL 105 MEQ/L (98-107); GLOMERULAR FILTRATION RATE > 60.0 (>39); GLUCOSE, FASTING 67 MG/DL (83-110); POTASSIUM SERUM 3.8 MEQ/L (3.5-5.1); SODIUM LEVEL 142 MEQ/L (136-145); TOTAL PROTEIN 6.6 GM/DL (6.4-8.2)
[2016-11-04] MEDS: ADVAIR DISKUS 250/50 INH PWD INH SCH ×2 (09:37→22:07)
[2016-11-04] MEDS: NYSTATIN 500,000 U/5 ML SUSP UDC SS SCH ×2 (09:37→22:07)
[2016-11-04 10:13] VITALS: BP 90/52
--- NOTE | 2016-11-04 10:16 | IPNPDOC ---
Subjective Date Seen The patient was seen on 11/04/16. Subjective Chief Complaint/HPI The patient is a 70-year-old female admitted with a reason for visit of Unspecified Depressive Disorder. Events since last encounter She has not been eating, drinking, or taking her medications. Pt states she is not hungry or thirsty. She does not want to get out of bed. She did not eat breakfast. She apparently did not eat dinner yesterday. At first she denies pain, She denies nausea or vomiting. Denies diarrhea or constipation. She has used Zofran only 1 yesterday at noon. Later states she has some abdominal discomfort however she is very nonspecific. She is unable to localize her discomfort. She has been out of bed to the bathroom, she denies urinary complaints, denies dysuria, frequency, urgency. She does not make eye contact. Responses are generally with 1 word responses. Patient is a poor historian. She is unable to explain why she does not feel well. She is unable to state why she does not want to take her medications. Pulmonary: Denies: Cough, Dyspnea Cardiovascular: Denies: Chest Pain, Lt Headedness, Orthopnea, Palpitations, Paroxysmal Noc. Dyspnea Objective Physical Examination General Exam: Positive: Alert Eye Exam: Positive: PERRLA ENT Exam: Positive: Atraumatic, Other ENT (mucous membranes appear dry) Chest Exam: Positive: Diminished (poor respiratory effort) Heart Exam: Positive: Normal S1, Normal S2, Rate Normal, Regular Rhythm, Negative: Murmurs, Rubs Abdomen Exam: Positive: Normal bowel sounds, Soft, Tenderness (some mild tenderness is noted in the mid to upper abdomen, no guarding or rebound.), Negative: Hepatospenomegaly Psych Exam: Positive: Oriented x 3 (the patient is alert and oriented, she does not make eye contact. She responds with only short answers.) Assessment /Plan Problems (1) Decreased oral intake Status: Acute Problem Text: * Patient with continued poor oral intake * CBC/CMP * Monitor serum creatinine * Encourage by mouth intake * Check UA/urine culture * Patient is reporting some vague abdominal discomfort, request CT abdomen and pelvis to further evaluate as well. (2) Pleural effusion Status: Chronic Problem Text: * CTA chest indicated moderate pleural effusion and right middle lobe consolidation. * Patient did not wish to proceed with thoracentesis. * Patient and daughter did not wish to proceed with any invasive procedures. * Patient was placed on supplemental oxygen 2 L nasal cannula. (3) HLD (hyperlipidemia) Status: Chronic Problem Text: * Statin. * Pt has been refusing. (4) Hypothyroid Status: Chronic Problem Text: * Continue supplement. * Pt sometimes taking . (5) HTN (hypertension) Status: Chronic Problem Text: * Zebeta,Lasix. * Pt refusing to take (6) COPD (chronic obstructive pulmonary disease) Status: Chronic Problem Text: * Advair, prednisone. * Pt refusing. 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 patient was not a candidate for surgery and opted not to undergo any chemotherapy so the mass was not biopsied to establish definitive diagnosis. * Patient has declined any invasive procedures. (8) GERD (gastroesophageal reflux disease) Status: Chronic Problem Text: * PPI. * Pt refusing. Plan/VTE VTE Prophylaxis Ordered?: Yes (TEDS/ambulatory) VS[facility]&O[facility] Vital Signs/I&O Vital Signs Date Time Temp Pulse Resp B/P Pulse Ox O2 Delivery O2 Flow Rate FiO2 11/04/16 06:45 98.4 113 20 109/53 11/03/16 11:51 Nasal Cannula 11/02/16 08:30 2.0 10/31/16 16:04 94 Laboratory Data 24H LABS Laboratory Tests 2 11/04/16 08:28: Blood Urea Nitrogen 15, Creatinine 0.60, Sodium Level 142, Potassium Level 3.8, Chloride Level 105, Carbon Dioxide Level 23, Calcium Level 8.9, Aspartate Amino Transf (AST/SGOT) 41H, Alanine Aminotransferase (ALT/SGPT) 50, Alkaline Phosphatase 102, Total Bilirubin 0.6, Total Protein 6.6, Albumin 2.8L, Albumin/ Globulin Ratio 0.74L, Anion Gap 14, Glomerular Filtration Rate > 60.0 CBC/BMP Laboratory Tests 11/04/16 08:28 Calcium Level 8.9, Aspartate Amino Transf (AST/SGOT) 41 H, Alanine Aminotransferase (ALT/SGPT) 50, Alkaline Phosphatase 102, Total Bilirubin 0.6, Total Protein 6.6, Albumin 2.8 L, Red Blood Count 4.29, Mean Corpuscular Volume 95.6, Mean Corpuscular Hemoglobin 31.6, Mean Corpuscular Hemoglobin Concent 33.0 , Red Cell Distribution Width 14.7 H Shanika De Souza Nov 04, 2016 10:16
--- NOTE | 2016-11-04 10:37 | IPNPDOC ---
[facility] Progress Note Progress Note DATE OF SERVICE: 11/04/16 History: Senior Business Architect met with patient today to assess treatment progress on inpatient unit. Patient was observed to be lying in bed utilizing oxygen, has not been attending groups, remains isolated to room, makes no eye contact with curriculum writer and provides monosyllabic responses to only some of curriculum writer's questions. Patient denies suicidal and homicidal ideation, denies audiovisual hallucinations, denies feeling anxious or depressed, and denies physical pain. Patient had untouched breakfast tray in front of her, indicates she does not want to eat, denies symptoms of pain or nausea stating only, "I don't want it." Patient shakes her head "no" when asked if she's experiencing physical pain or sleep challenges. Patient again refused most medications, is unable to explain to curriculum writer why she declined medications. Per EMR, patient consumed 240 mL's of water this morning, did not eat lunch or dinner yesterday. Patient was unable to engage effectively for assessment purposes, presented with no signs of acute distress at time of interaction. Senior Business Architect provided update to attending M.D. early this morning and expressed concerns regarding patient's status. Senior Business Architect also provided updates to PA, nursing, and clinical nursing professor. Nursing has been instructed to monitor patient closely, is aware the patient is on I and O and vitals QID. VITALS: See below NEW TEST RESULTS: New Lab results indicate low calcium and glucose, elevated RDW CURRENT MEDICATIONS: See below MENTAL STATUS EVALUATION: Patient is 70-year-old female who is observed to be lying in bed, declines to get up to interact with curriculum writer, makes poor eye contact , is not engageable, is unable or unwilling to cooperate for assessment purposes , is disheveled, appears stated age. Speech is limited, responds with monosyllabic responses when does respond, declines to respond to many questions, low volume, slow rate, monotone. Language skills are limited, perhaps by depression Thought processes including: Unable to assess. Thought content: Unable to assess Abstract reasoning: Unable to assess. Description of associations: Unable to assess. Description of abnormal or psychotic thoughts: Denies by shaking head "no" to hallucinations, delusions, homicidal or suicidal ideation, does not appear to be experiencing obsessions. Judgment: Unable to assess Insight: Unable to assess. Orientation to Appears oriented to person and place, unable to assess orientation to time Recent and remote memory: Unable to assess. Attention span and concentration: Unable to assess. Language: Unable to assess. Fund of knowledge: Unable to assess. Mood: Depressed. Affect: Flat. ASSESSMENT: Major depressive disorder. MANAGEMENT PLAN: Senior Business Architect has instructed nursing to monitor patient closely, has provided update to PA, has expressed concerns to clinical nursing professor, and has provided update and expressed concerns to attending Chen who indicated he will evaluate patient Patient's psychotropic medication has been minimized to Effexor XR 75 mg by mouth in the morning and trazodone 50 mg by mouth at night. Brintellix has been discontinued. Also, sertraline 50 mg has been discontinued. Klonopin has been discontinued. Vitals QID Monitor I and O, continue to encourage intake Continue close observation. Continue medication management, individual and group therapy. Vital Signs Vital Signs Date Time Temp Pulse Resp B/P Pulse Ox O2 Delivery O2 Flow Rate FiO2 11/04/16 10:13 118 16 90/52 11/04/16 06:45 98.4 11/03/16 11:51 Nasal Cannula 11/02/16 08:30 2.0 10/31/16 16:04 94 Laboratory Data 24H Labs Laboratory Tests 2 11/04/16 08:28: Blood Urea Nitrogen 15, Creatinine 0.60, Sodium Level 142, Potassium Level 3.8, Chloride Level 105, Carbon Dioxide Level 23, Calcium Level 8.9, Aspartate Amino Transf (AST/SGOT) 41H, Alanine Aminotransferase (ALT/SGPT) 50, Alkaline Phosphatase 102, Total Bilirubin 0.6, Total Protein 6.6, Albumin 2.8L, Albumin/ Globulin Ratio 0.74L, Anion Gap 14, Glomerular Filtration Rate > 60.0 CBC/BMP Laboratory Tests 11/04/16 08:28 Calcium Level 8.9, Aspartate Amino Transf (AST/SGOT) 41 H, Alanine Aminotransferase (ALT/SGPT) 50, Alkaline Phosphatase 102, Total Bilirubin 0.6, Total Protein 6.6, Albumin 2.8 L, Red Blood Count 4.29, Mean Corpuscular Volume 95.6, Mean Corpuscular Hemoglobin 31.6, Mean Corpuscular Hemoglobin Concent 33.0 , Red Cell Distribution Width 14.7 H Current Medications Current Medications Acetaminophen (Tylenol Tab) 650 mg Q4HP PRN PO PAIN OR FEVER; Start 2/20/17 at 18:00; Stop 11/30/16 at 17:59 Al Hydrox/Mg Hydrox/Simethicone (Mylanta) 30 ml Q4HP PRN PO HEARTBURN/ INDIGESTION; Start 10/31/16 at 18:00; Stop 11/30/16 at 17:59 Albuterol/ Ipratropium (Duoneb (Ipr 0.5mg/Alb 2.5mg)) 3 ml Q6HP PRN NEB SOB/ WHEEZING; Start 10/31/16 at 18:00; Stop 11/30/16 at 17:59 Artificial Tears (Akwa Tears) 1 drop BIDP PRN OU DRY EYES; Start 10/31/16 at 18 :00; Stop 11/30/16 at 17:59 Aspirin (Ecotrin) 40.5 mg DAILY PO ; Start 11/01/16 at 09:00; Stop 12/01/16 at 08:59 Bisoprolol Fumarate (Zebeta) 2.5 mg DAILY PO ; Start 11/01/16 at 09:00; Stop at 08:59 Calcium Carbonate (Tums) 500 mg DAILYPRN PRN PO INDIGESTION; Start 10/31/16 at 18:00; Stop 11/30/16 at 17:59 Clonazepam (KlonoPIN) 0.25 mg BID PO Last administered on 10/31/16t 21:59; Start 10/31/16 at 21:00; Stop 11/01/16 at 11:05; Status DC Cyanocobalamin (Vitamin B12) 500 mcg DAILY PO ; Start 11/01/16 at 09:00; Stop at 08:59 Docusate Sodium (Colace) 200 mg QHS PO Last administered on 11/01/16 21:05; Start 10/31/16 at 21:00; Stop 11/30/16 at 20:59 Furosemide (Lasix) 40 mg DAILY PO ; Start 11/01/16 at 09:00; Stop 12/01/16 at 08 :59 Levothyroxine Sodium (Synthroid) 0.125 mg DAILY@06 PO Last administered on 11/04 06:16; Start 11/01/16 at 06:00; Stop 12/01/16 at 05:59 Lidocaine/ Diphenhydr/Alum/ Mg/Simeth (Magic Mouthwash) 5ml SWISH AND SWALLOW ... ACHS SS Last administered on 11/04/16 06:15; Start 11/01/16 at 21:00; Stop 12/01/16 at 20:59 Magnesium Hydroxide (Milk Of Magnesia) 30 ml DAILYPRN PRN PO CONSTIPATION; Start 10/31/16 at 18:00; Stop 11/30/16 at 17:59 Nortriptyline HCl (Pamelor) 75 mg QHS PO Last administered on 10/31/16 21:59; Start 10/31/16 at 21:00; Stop 11/01/16 at 11:05; Status DC Nystatin (Mycostatin) 5 ml BID SS Last administered on 11/04/16 09:37; Start 10/31/16 at 21:00; Stop 11/07/16 at 20:59 Omeprazole (PriLOSEC) 20 mg DAILY PO ; Start 11/01/16 at 09:00; Stop 12/01/16 at 08:59 Ondansetron HCl (Zofran Odt) 4 mg Q6HP PRN SL NAUSEA OR VOMITING Last administered on 11/03/16 12:24; Start 11/03/16 at 10:00; Stop 12/03/16 at 09:59 Patient Own Medication (Patient'S Own Med) 5 ea DAILY PO Last administered on 08:50; Start 11/01/16 at 09:00; Stop 11/02/16 at 09:33; Status DC Potassium Chloride (Micro-K Extencaps) 40 meq DAILY PO ; Start 11/01/16 at 09:00 ; Stop 12/01/16 at 08:59 Prednisone (Deltasone) 10 mg DAILY PO ; Start 11/01/16 at 09:00; Stop 12/01/16 at 08:59 Quetiapine Fumarate (SEROquel) 25 mg BID PO Last administered on 10/31/16 21: 59; Start 10/31/16 at 21:00; Stop 11/01/16 at 11:05; Status DC Salmeterol Xinafoate/ Fluticasone (Advair Diskus 250/50) 1 puff BID INH Last administered on 11/04/16 09:37; Start 10/31/16 at 21:00; Stop 11/30/16 at 20:59 Sertraline HCl (Zoloft) 50 mg QAM PO Last administered on 11/02/16 08:49; Start 11/01/16 at 09:00; Stop 11/02/16 at 09:36; Status DC Simvastatin (Zocor) 20 mg QHS PO Last administered on 11/01/16 21:04; Start at 21:00; Stop 11/30/16 at 20:59 Trazodone HCl (Desyrel) 25 mg QHS PO Last administered on 11/01/16 21:05; Start 11/01/16 at 21:00; Stop 11/02/16 at 09:36; Status DC Trazodone HCl (Desyrel) 50 mg QHS PO ; Start 11/02/16 at 21:00; Stop 12/02/16 at 20:59 Trazodone HCl (Desyrel) 50 mg QHSP PRN PO INSOMNIA; Start 10/31/16 at 18:00; Stop 11/01/16 at 11:05; Status DC Venlafaxine HCl (Effexor Xr) 75 mg QAM PO ; Start 11/02/16 at 09:00; Stop at 08:59 Allergies Coded Allergies: Penicillins (Verified Allergy, Severe, SWELLING ALL OVER, 10/26/16) HAS TOLERATED 1st & 3rd GEN CEPHALOSPORINS w/o PROBLEM Latex (Verified Allergy, Mild, rash, 10/31/16) Naproxen (Verified Allergy, Unknown, VIOXX, 12/16/12) Penicillins Cross Reactors (Verified Allergy, Unknown, 12/16/12) Oriana Olmstead Nov 04, 2016 10:37
--- NOTE | 2016-11-04 11:12 | REP ---
Clinical: Abdominal pain with elevated liver function tests. Findings: Moderate right pleural effusion with mild right lower lobe and right middle lobe atelectasis may be slightly increased from prior chest CT dated 10/25/2016. Liver, spleen, and pancreas are normal for noncontrast evaluation. Cholelithiasis noted without CT evidence for acute cholecystitis. The adrenal glands suggest bilateral adenomas (left greater than right). The kidneys demonstrate mild symmetric and likely chronic perinephric stranding without hydronephrosis. The enteric system is without obstruction or acute inflammatory process of note, the cecum crosses the midline to the left lower abdomen but is otherwise normal in appearance. Sigmoid diverticula noted without acute diverticulitis. Pelvis demonstrates normal bladder and age-appropriate uterus/adnexa. No pelvic fluid/ascites. No free air. No adenopathy. Atherosclerotic changes of the vasculature noted without aneurysm. Musculoskeletal structures demonstrate degenerative change without focal osseous abnormality. Impression: [id number] right pleural effusion and associated atelectasis. Cholelithiasis without CT evidence for acute cholecystitis. Bilateral adrenal adenomas. Sigmoid diverticula without acute diverticulitis. No further acute intra-abdominal or pelvic pathology appreciated. Signed by Manan Milligan MD 11/04/2016 11:03 A
[2016-11-04 18:00] VITALS: BP 146/68
[2016-11-04] MEDS: SIMVASTATIN 20 MG TAB PO SCH (22:07)
[2016-11-04] MEDS: DOCUSATE SODIUM 100 MG CAP PO SCH (22:07)
[2016-11-04] MEDS: traZODone 50 MG TAB PO SCH (22:07)
[2016-11-05] MEDS: POTASSIUM CHLORIDE 10 MEQ SR TABLET PO SCH (06:11)
[2016-11-05] MEDS: VENLAFAXINE **XR** 75MG CAPSULE PO SCH (06:11)
[2016-11-05] MEDS: LEVOTHYROXINE 0.125 MG TAB (125 MCG) PO SCH (06:11)
[2016-11-05] MEDS: OMEPRAZOLE 20 MG CAP PO SCH (06:12)
[2016-11-05] MEDS: FUROSEMIDE 40 MG TAB PO SCH (06:12)
[2016-11-05 06:35] VITALS: BP 114/53
[2016-11-05] MEDS: MAGIC MOUTHWASH SUSPENSION BTL SS SCH ×4 (06:38→20:38)
[2016-11-05 07:26] LABS: MEAN CORPUSCULAR HEMOGLOBIN 30.3 pg (27.0-33.0); MEAN CORPUSCULAR HGB CONC 32.3 g/dl (32.0-36.5); MEAN CORPUSCULAR VOLUME 93.8 fl (80.0-96.0); RED CELL DISTRIBUTION WIDTH 14.8 % (11.5-14.5); WHITE BLOOD COUNT 8.6 K/mm3 (4.0-10.0)
[2016-11-05 07:49] LABS: ALBUMIN 2.9 GM/DL (3.2-5.2); ALBUMIN/GLOBULIN RATIO 0.88 (1.00-1.93); ALKALINE PHOSPHATASE 100 U/L (45-117); ALT/SGPT 45 U/L (12-78); ANION GAP 14 MEQ/L (8-16); AST/SGOT 36 U/L (15-37); BILIRUBIN,TOTAL 0.7 MG/DL (0.2-1.0); BLOOD UREA NITROGEN 14 MG/DL (7-18); CALCIUM LEVEL 8.5 MG/DL (8.8-10.2); CARBON DIOXIDE LEVEL 27 MEQ/L (21-32); CHLORIDE LEVEL 101 MEQ/L (98-107); CREATININE FOR GFR 0.58 MG/DL (0.55-1.02); GLOMERULAR FILTRATION RATE > 60.0 (>39); GLUCOSE, FASTING 75 MG/DL (83-110); POTASSIUM SERUM 4.1 MEQ/L (3.5-5.1); SODIUM LEVEL 142 MEQ/L (136-145); TOTAL PROTEIN 6.2 GM/DL (6.4-8.2)
[2016-11-05] MEDS: ADVAIR DISKUS 250/50 INH PWD INH SCH ×2 (08:43→20:37)
[2016-11-05] MEDS: BISOPROLOL FUM 2.5 MG PER 1/2TAB PO SCH (08:43)
[2016-11-05] MEDS: predniSONE 10 MG TAB PO SCH (08:43)
[2016-11-05] MEDS: ASPIRIN 81 MG ENTERIC TAB PO SCH (08:43)
[2016-11-05] MEDS: NYSTATIN 500,000 U/5 ML SUSP UDC SS SCH ×2 (08:43→20:37)
[2016-11-05] MEDS: CYANOCOBALAMIN 500 MCG TAB PO SCH (08:43)
[2016-11-05 18:12] VITALS: BP 128/89
[2016-11-05] MEDS: traZODone 50 MG TAB PO SCH (20:37)
[2016-11-05] MEDS: SIMVASTATIN 20 MG TAB PO SCH (20:37)
[2016-11-05] MEDS: DOCUSATE SODIUM 100 MG CAP PO SCH (20:37)
[2016-11-06] MEDS: OMEPRAZOLE 20 MG CAP PO SCH (06:08)
[2016-11-06] MEDS: LEVOTHYROXINE 0.125 MG TAB (125 MCG) PO SCH (06:09)
[2016-11-06] MEDS: FUROSEMIDE 40 MG TAB PO SCH (06:09)
[2016-11-06] MEDS: VENLAFAXINE **XR** 75MG CAPSULE PO SCH (06:09)
[2016-11-06] MEDS: POTASSIUM CHLORIDE 10 MEQ SR TABLET PO SCH (06:10)
[2016-11-06 06:41] VITALS: BP 155/71
[2016-11-06] MEDS: MAGIC MOUTHWASH SUSPENSION BTL SS SCH ×4 (06:50→20:36)
[2016-11-06] MEDS: predniSONE 10 MG TAB PO SCH (09:16)
[2016-11-06] MEDS: ASPIRIN 81 MG ENTERIC TAB PO SCH (09:16)
[2016-11-06] MEDS: CYANOCOBALAMIN 500 MCG TAB PO SCH (09:16)
[2016-11-06] MEDS: BISOPROLOL FUM 2.5 MG PER 1/2TAB PO SCH (09:16)
[2016-11-06] MEDS: NYSTATIN 500,000 U/5 ML SUSP UDC SS SCH ×2 (09:24→20:36)
[2016-11-06] MEDS: ADVAIR DISKUS 250/50 INH PWD INH SCH ×2 (09:24→20:36)
[2016-11-06 18:00] VITALS: BP 134/78
[2016-11-06] MEDS: DOCUSATE SODIUM 100 MG CAP PO SCH (20:36)
[2016-11-06] MEDS: SIMVASTATIN 20 MG TAB PO SCH (20:36)
[2016-11-06] MEDS: traZODone 50 MG TAB PO SCH (20:36)
[2016-11-07] MEDS: OMEPRAZOLE 20 MG CAP PO SCH (06:00)
[2016-11-07] MEDS: VENLAFAXINE **XR** 75MG CAPSULE PO SCH (06:00)
[2016-11-07] MEDS: POTASSIUM CHLORIDE 10 MEQ SR TABLET PO SCH (06:00)
[2016-11-07] MEDS: MAGIC MOUTHWASH SUSPENSION BTL SS SCH ×4 (06:00→21:10)
[2016-11-07] MEDS: LEVOTHYROXINE 0.125 MG TAB (125 MCG) PO SCH (06:00)
[2016-11-07] MEDS: FUROSEMIDE 40 MG TAB PO SCH (06:00)
[2016-11-07 06:54] VITALS: BP 110/66
[2016-11-07 06:59] LABS: BASO % 0.4 % (0.0-1.0); EOS # 0.1 K/mm3 (0.0-0.50); EOS % 0.7 % (0.0-3.0); LARGE UNSTAINED CELL # 0.3 K/mm3 (0.0-0.4); LYMPH # 2.3 K/mm3 (1.5-4.5); LYMPH % 23.4 % (24.0-44.0); MEAN CORPUSCULAR HEMOGLOBIN 30.3 pg (27.0-33.0); MEAN CORPUSCULAR HGB CONC 32.6 g/dl (32.0-36.5); MEAN CORPUSCULAR VOLUME 93.1 fl (80.0-96.0); MONO # 0.7 K/mm3 (0.0-0.8); MONO % 6.6 % (0.0-5.0); NEUTROPHILS # 6.5 K/mm3 (1.8-7.7); NEUTROPHILS % 65.8 % (36.0-66.0); PLATELET COUNT, AUTOMATED 356 k/mm3 (150-450); WHITE BLOOD COUNT 9.9 K/mm3 (4.0-10.0)
[2016-11-07 07:17] LABS: ALBUMIN 3.2 GM/DL (3.2-5.2); ALBUMIN/GLOBULIN RATIO 1.03 (1.00-1.93); ALKALINE PHOSPHATASE 100 U/L (45-117); ALT/SGPT 43 U/L (12-78); ANION GAP 11 MEQ/L (8-16); AST/SGOT 29 U/L (15-37); BILIRUBIN,TOTAL 0.7 MG/DL (0.2-1.0); BLOOD UREA NITROGEN 21 MG/DL (7-18); CALCIUM LEVEL 8.6 MG/DL (8.8-10.2); CARBON DIOXIDE LEVEL 27 MEQ/L (21-32); CHLORIDE LEVEL 103 MEQ/L (98-107); CREATININE FOR GFR 0.73 MG/DL (0.55-1.02); GLOMERULAR FILTRATION RATE > 60.0 (>39); GLUCOSE, FASTING 97 MG/DL (83-110); SODIUM LEVEL 141 MEQ/L (136-145); TOTAL PROTEIN 6.3 GM/DL (6.4-8.2)
[2016-11-07] MEDS: predniSONE 10 MG TAB PO SCH (09:39)
[2016-11-07] MEDS: CYANOCOBALAMIN 500 MCG TAB PO SCH (09:39)
[2016-11-07] MEDS: ASPIRIN 81 MG ENTERIC TAB PO SCH (09:40)
[2016-11-07] MEDS: BISOPROLOL FUM 2.5 MG PER 1/2TAB PO SCH (09:40)
[2016-11-07] MEDS: NYSTATIN 500,000 U/5 ML SUSP UDC SS SCH ×2 (09:40→21:00)
[2016-11-07] MEDS: ADVAIR DISKUS 250/50 INH PWD INH SCH ×2 (09:40→21:10)
--- NOTE | 2016-11-07 17:01 | IPN ---
DATE: 11/07/2016 The patient is selectively mute, staring into the space. She did not answer my questions. She did not eat lunch. MENTAL STATUS EXAMINATION: The patient is non-cooperative for the examination. Poor eye contact, staring into the space. Speech is selectively mute. Mood is very depressed. Affect is restricted. The patient apparently does not have psychotic symptoms, but today she was not answering questions so cognitive functions, attention, orientation, or if the patient has delusions or hallucinations is unknown. Insight and judgment are poor. ASSESSMENT: Major depressive disorder. PLAN: 1. Continue with Effexor XR 75 mg by mouth every morning. 2. Continue with Trazodone 50 mg by mouth at bedtime. 3. Continue close observation.
[2016-11-07 18:00] VITALS: BP 121/59
[2016-11-07] MEDS: DOCUSATE SODIUM 100 MG CAP PO SCH (21:10)
[2016-11-07] MEDS: traZODone 50 MG TAB PO SCH (21:10)
[2016-11-07] MEDS: SIMVASTATIN 20 MG TAB PO SCH (21:10)
[2016-11-08] MEDS: MAGIC MOUTHWASH SUSPENSION BTL SS SCH ×4 (05:44→20:46)
[2016-11-08] MEDS: FUROSEMIDE 40 MG TAB PO SCH (05:44)
[2016-11-08] MEDS: POTASSIUM CHLORIDE 10 MEQ SR TABLET PO SCH (05:45)
[2016-11-08] MEDS: OMEPRAZOLE 20 MG CAP PO SCH (05:45)
[2016-11-08] MEDS: VENLAFAXINE **XR** 75MG CAPSULE PO SCH (05:45)
[2016-11-08] MEDS: LEVOTHYROXINE 0.125 MG TAB (125 MCG) PO SCH (05:45)
[2016-11-08 06:36] VITALS: BP 148/64
[2016-11-08 08:44] LABS: MEAN CORPUSCULAR HEMOGLOBIN 30.7 pg (27.0-33.0); MEAN CORPUSCULAR HGB CONC 32.3 g/dl (32.0-36.5); MEAN CORPUSCULAR VOLUME 94.9 fl (80.0-96.0); RED CELL DISTRIBUTION WIDTH 14.9 % (11.5-14.5); WHITE BLOOD COUNT 9.8 K/mm3 (4.0-10.0)
[2016-11-08 09:07] LABS: ANION GAP 10 MEQ/L (8-16); BLOOD UREA NITROGEN 22 MG/DL (7-18); CALCIUM LEVEL 9.1 MG/DL (8.8-10.2); CARBON DIOXIDE LEVEL 29 MEQ/L (21-32); CHLORIDE LEVEL 102 MEQ/L (98-107); GLOMERULAR FILTRATION RATE > 60.0 (>39); GLUCOSE, FASTING 92 MG/DL (83-110); POTASSIUM SERUM 4.2 MEQ/L (3.5-5.1); SODIUM LEVEL 141 MEQ/L (136-145)
[2016-11-08] MEDS: NYSTATIN 500,000 U/5 ML SUSP UDC SS SCH ×2 (09:10→20:46)
[2016-11-08] MEDS: ADVAIR DISKUS 250/50 INH PWD INH SCH ×2 (09:10→20:46)
[2016-11-08] MEDS: ASPIRIN 81 MG ENTERIC TAB PO SCH (09:10)
[2016-11-08] MEDS: BISOPROLOL FUM 2.5 MG PER 1/2TAB PO SCH (09:11)
[2016-11-08] MEDS: predniSONE 10 MG TAB PO SCH (09:11)
[2016-11-08] MEDS: CYANOCOBALAMIN 500 MCG TAB PO SCH (09:11)
--- NOTE | 2016-11-08 13:20 | IPNPDOC ---
Subjective Date Seen The patient was seen on 11/08/16. Subjective Chief Complaint/HPI The patient is a 70-year-old female admitted with a reason for visit of Unspecified Depressive Disorder. Events since last encounter Pt lying in bed refusing to speak or make eye contact. Incontinent of stool and urine. General: Reports: ROS Unobtainable Objective Physical Examination General Exam: Positive: Alert ENT Exam: Positive: Atraumatic, Other ENT (mucous membranes appear dry. ) Chest Exam: Positive: Diminished (poor respiratory effort) Heart Exam: Positive: Normal S1, Normal S2, Rate Normal, Regular Rhythm, Negative: Murmurs, Rubs Abdomen Exam: Positive: Normal bowel sounds, Soft, Negative: Hepatospenomegaly Assessment /Plan Problems (1) Decreased oral intake Status: Acute Problem Text: * Patient with continued poor oral intake * CBC/CMP * Monitor serum creatinine * Encourage by mouth intake * Check UA/urine culture- pt has refused to provide sample. * CT A&P 11/04/16 No acute abn. (2) Pleural effusion Status: Chronic Problem Text: * CTA chest indicated moderate pleural effusion and right middle lobe consolidation. * Patient did not wish to proceed with thoracentesis. * Patient and daughter did not wish to proceed with any invasive procedures. * Patient was placed on supplemental oxygen 2 L nasal cannula. (3) HLD (hyperlipidemia) Status: Chronic Problem Text: * Statin. (4) Hypothyroid Status: Chronic Problem Text: * Continue supplement. (5) HTN (hypertension) Status: Chronic Problem Text: * Zebeta,Lasix. (6) COPD (chronic obstructive pulmonary disease) Status: Chronic Problem Text: * Advair, prednisone. 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 patient was not a candidate for surgery and opted not to undergo any chemotherapy so the mass was not biopsied to establish definitive diagnosis. * Patient has declined any invasive procedures. (8) GERD (gastroesophageal reflux disease) Status: Chronic Problem Text: * PPI. Plan/VTE VTE Prophylaxis Ordered?: Yes (TEDS/ambulatory) VS, I&O, 24H, Fishbone Vital Signs/I&O Vital Signs Date Time Temp Pulse Resp B/P Pulse Ox O2 Delivery O2 Flow Rate FiO2 11/08/16 09:11 85 148/64 11/08/16 06:36 95.7 18 11/07/16 14:15 Nasal Cannula 2.0 100 11/06/16 18:00 90 Laboratory Data 24H LABS Laboratory Tests 2 11/08/16 08:19: Anion Gap 10, Blood Urea Nitrogen 22H, Creatinine 0.80, Sodium Level 141, Potassium Level 4.2, Chloride Level 102, Carbon Dioxide Level 29, Calcium Level 9.1, Glomerular Filtration Rate > 60.0 CBC/BMP Laboratory Tests 11/08/16 08:19 Calcium Level 9.1, Red Blood Count 4.87, Mean Corpuscular Volume 94.9, Mean Corpuscular Hemoglobin 30.7, Mean Corpuscular Hemoglobin Concent 32.3, Red Cell Distribution Width 14.9 H Shanika De Souza Nov 08, 2016 13:20
[2016-11-08 18:00] VITALS: BP 120/61
--- NOTE | 2016-11-08 19:46 | IPNPDOC ---
[facility] Progress Note Progress Note DATE OF SERVICE: 11/08/16 History: Client Support Administrator met with patient this morning to assess treatment progress on inpatient unit. Patient was observed to be lying in bed utilizing oxygen, has not been attending groups, remains isolated to room, makes no eye contact with senior medical writer and provides no verbal responses to senior medical writer's questions. Patient had untouched food tray in front of her, does not respond when asked if she is experiencing physical pain or sleep challenges. Patient has been taking some of her medications. Nursing continues to monitor patient's intake and patient has been incontinent. Patient was unable to engage effectively for assessment purposes, presented with no signs of acute distress at time of interaction. Client Support Administrator was informed by clinical nursing assistant that attending Chen will be evaluating patient's status and assuming psychiatric care for patient starting date of entry. Client Support Administrator provided update and communicated concerns regarding patient's status to PA, clinical nursing assistant, nursing, and attending Asaf. Nursing has been instructed to monitor patient closely, is aware the patient is on I and O and vitals QID. VITALS: See below NEW TEST RESULTS: New Lab results indicate elevated RDW and BUN. CURRENT MEDICATIONS: See below MENTAL STATUS EVALUATION: Patient is 70-year-old female who is observed to be lying in bed, declines to get up to interact with senior medical writer, makes no eye contact, is not engageable, is unable or unwilling to cooperate for assessment purposes, is disheveled, appears stated age. Speech: No verbal responses today Language skills unable to assess Thought processes including: Unable to assess. Thought content: Unable to assess Abstract reasoning: Unable to assess. Description of associations: Unable to assess. Description of abnormal or psychotic thoughts: Unable to assess Judgment: Unable to assess Insight: Unable to assess. Orientation to unable to assess Recent and remote memory: Unable to assess. Attention span and concentration: Unable to assess. Language: Unable to assess. Fund of knowledge: Unable to assess. Mood: Appears depressed. Affect: Flat. ASSESSMENT: Major depressive disorder. MANAGEMENT PLAN: In effort to advocate for patient's receipt of highest quality care in the inpatient psychiatric setting, senior medical writer requested transfer of patient care to attending psychiatrist. Client Support Administrator was informed this afternoon by clinical nursing assistant that due to the medical and psychiatric complexity of patient's treatment, patient's care is being transferred to the attending Chen effective date of entry. Patient was informed of change in providers. Client Support Administrator has instructed nursing to monitor patient closely and has expressed concerns and provided updates to PA, clinical nursing assistant, and attending Chen who indicated he will evaluate patient Vitals QID Monitor I and O, continue to encourage intake Toilet regularly and monitor skin integrity Continue close observation. Continue medication management Continue to encourage individual and group therapy. Vital Signs Vital Signs Date Time Temp Pulse Resp B/P Pulse Ox O2 Delivery O2 Flow Rate FiO2 11/08/16 13:51 Nasal Cannula 2.0 11/08/16 09:11 85 148/64 11/08/16 06:36 95.7 18 11/07/16 14:15 100 11/06/16 18:00 90 Laboratory Data 24H Labs Laboratory Tests 2 11/08/16 08:19: Anion Gap 10, Blood Urea Nitrogen 22H, Creatinine 0.80, Sodium Level 141, Potassium Level 4.2, Chloride Level 102, Carbon Dioxide Level 29, Calcium Level 9.1, Glomerular Filtration Rate > 60.0 CBC/BMP Laboratory Tests 11/08/16 08:19 Calcium Level 9.1, Red Blood Count 4.87, Mean Corpuscular Volume 94.9, Mean Corpuscular Hemoglobin 30.7, Mean Corpuscular Hemoglobin Concent 32.3, Red Cell Distribution Width 14.9 H Current Medications Current Medications Acetaminophen (Tylenol Tab) 650 mg Q4HP PRN PO PAIN OR FEVER; Start 10/31/16 at 18:00; Stop 11/30/16 at 17:59 Al Hydrox/Mg Hydrox/Simethicone (Mylanta) 30 ml Q4HP PRN PO HEARTBURN/ INDIGESTION; Start 10/31/16 at 18:00; Stop 11/30/16 at 17:59 Albuterol/ Ipratropium (Duoneb (Ipr 0.5mg/Alb 2.5mg)) 3 ml Q6HP PRN NEB SOB/ WHEEZING; Start 10/31/16 at 18:00; Stop 11/30/16 at 17:59 Artificial Tears (Akwa Tears) 1 drop BIDP PRN OU DRY EYES; Start 10/31/16 at 18 :00; Stop 11/30/16 at 17:59 Aspirin (Ecotrin) 40.5 mg DAILY PO Last administered on 11/08/16t 09:10; Start 11/01/16 at 09:00; Stop 12/01/16 at 08:59 Bisoprolol Fumarate (Zebeta) 2.5 mg DAILY PO Last administered on 11/08/16 09: 11; Start 11/01/16 at 09:00; Stop 12/01/16 at 08:59 Calcium Carbonate (Tums) 500 mg DAILYPRN PRN PO INDIGESTION; Start 10/31/16 at 18:00; Stop 11/30/16 at 17:59 Clonazepam (KlonoPIN) 0.25 mg BID PO Last administered on 10/31/16 21:59; Start 10/31/16 at 21:00; Stop 11/01/16 at 11:05; Status DC Cyanocobalamin (Vitamin B12) 500 mcg DAILY PO Last administered on 11/08/16 09 :11; Start 11/01/16 at 09:00; Stop 12/01/16 at 08:59 Docusate Sodium (Colace) 200 mg QHS PO Last administered on 11/07/16 21:10; Start 10/31/16 at 21:00; Stop 11/30/16 at 20:59 Furosemide (Lasix) 40 mg DAILY PO ; Start 11/01/16 at 09:00; Stop 11/04/16 at 15 :24; Status DC Furosemide (Lasix) 40 mg DAILY@06 PO Last administered on 11/08/16 05:44; Start 11/05/16 at 06:00; Stop 12/05/16 at 05:59 Levothyroxine Sodium (Synthroid) 0.125 mg DAILY@06 PO Last administered on 11/04 06:16; Start 11/01/16 at 06:00; Stop 11/04/16 at 15:24; Status DC Levothyroxine Sodium (Synthroid) 0.125 mg DAILY@06 PO Last administered on 11/08 05:45; Start 11/05/16 at 06:00; Stop 12/05/16 at 05:59 Lidocaine/ Diphenhydr/Alum/ Mg/Simeth (Magic Mouthwash) 5ml SWISH AND SWALLOW ... ACHS SS Last administered on 11/08/16 17:22; Start 11/01/16 at 21:00; Stop 12/01/16 at 20:59 Magnesium Hydroxide (Milk Of Magnesia) 30 ml DAILYPRN PRN PO CONSTIPATION; Start 10/31/16 at 18:00; Stop 11/30/16 at 17:59 Nortriptyline HCl (Pamelor) 75 mg QHS PO Last administered on 10/31/16 21:59; Start 10/31/16 at 21:00; Stop 11/01/16 at 11:05; Status DC Nystatin (Mycostatin) 5 ml BID SS Last administered on 11/08/16 09:10; Start 10/31/16 at 21:00; Stop 11/13/16 at 20:59 Omeprazole (PriLOSEC) 20 mg DAILY PO ; Start 11/01/16 at 09:00; Stop 11/04/16 at 15:24; Status DC Omeprazole (PriLOSEC) 20 mg DAILY@06 PO Last administered on 11/08/16 05:45; Start 11/05/16 at 06:00; Stop 12/05/16 at 05:59 Ondansetron HCl (Zofran Odt) 4 mg Q6HP PRN SL NAUSEA OR VOMITING Last administered on 11/03/16 12:24; Start 11/03/16 at 10:00; Stop 12/03/16 at 09:59 Patient Own Medication (Patient'S Own Med) 5 ea DAILY PO Last administered on 08:50; Start 11/01/16 at 09:00; Stop 11/02/16 at 09:33; Status DC Potassium Chloride (Micro-K Extencaps) 40 meq DAILY PO ; Start 11/01/16 at 09:00 ; Stop 11/04/16 at 15:24; Status DC Potassium Chloride (Micro-K Extencaps) 40 meq DAILY@06 PO Last administered on 11/08/16 05:45; Start 11/05/16 at 06:00; Stop 12/05/16 at 05:59 Prednisone (Deltasone) 10 mg DAILY PO Last administered on 11/08/16 09:11; Start 11/01/16 at 09:00; Stop 12/01/16 at 08:59 Quetiapine Fumarate (SEROquel) 25 mg BID PO Last administered on 10/31/16 21: 59; Start 10/31/16 at 21:00; Stop 11/01/16 at 11:05; Status DC Salmeterol Xinafoate/ Fluticasone (Advair Diskus 250/50) 1 puff BID INH Last administered on 11/08/16 09:10; Start 10/31/16 at 21:00; Stop 11/30/16 at 20:59 Sertraline HCl (Zoloft) 50 mg QAM PO Last administered on 11/02/16 08:49; Start 11/01/16 at 09:00; Stop 11/02/16 at 09:36; Status DC Simvastatin (Zocor) 20 mg QHS PO Last administered on 11/07/16 21:10; Start at 21:00; Stop 11/30/16 at 20:59 Trazodone HCl (Desyrel) 25 mg QHS PO Last administered on 11/01/16 21:05; Start 11/01/16 at 21:00; Stop 11/02/16 at 09:36; Status DC Trazodone HCl (Desyrel) 50 mg QHS PO Last administered on 11/07/16 21:10; Start 11/02/16 at 21:00; Stop 11/08/16 at 15:16; Status DC Trazodone HCl (Desyrel) 50 mg QHSP PRN PO INSOMNIA; Start 10/31/16 at 18:00; Stop 11/01/16 at 11:05; Status DC Trazodone HCl (Desyrel) 100 mg QHS PO ; Start 11/08/16 at 21:00; Stop 12/08/16 at 20:59 Venlafaxine HCl (Effexor Xr) 75 mg QAM PO Last administered on 11/04/16 15 :19; Start 11/02/16 at 09:00; Stop 11/04/16 at 15:24; Status DC Venlafaxine HCl (Effexor Xr) 75 mg QAM@06 PO Last administered on 05:45; Start 11/05/16 at 06:00; Stop 11/08/16 at 15:28; Status DC Venlafaxine HCl (Effexor Xr) 150 mg DAILY@06 PO ; Start 11/09/16 at 06:00; Stop 12/09/16 at 05:59 Allergies Coded Allergies: Penicillins (Verified Allergy, Severe, SWELLING ALL OVER, 10/26/16) HAS TOLERATED 1st & 3rd GEN CEPHALOSPORINS w/o PROBLEM Latex (Verified Allergy, Mild, rash, 10/31/16) Naproxen (Verified Allergy, Unknown, VIOXX, 12/16/12) Penicillins Cross Reactors (Verified Allergy, Unknown, 12/16/12) Oriana Olmstead Nov 08, 2016 19:46
[2016-11-08] MEDS: DOCUSATE SODIUM 100 MG CAP PO SCH (20:46)
[2016-11-08] MEDS: SIMVASTATIN 20 MG TAB PO SCH (20:46)
[2016-11-08] MEDS: traZODone 100 MG TAB PO SCH (20:46)
[2016-11-09] MEDS: POTASSIUM CHLORIDE 10 MEQ SR TABLET PO SCH (06:00)
[2016-11-09] MEDS: FUROSEMIDE 40 MG TAB PO SCH (06:00)
[2016-11-09] MEDS: VENLAFAXINE **XR** 75MG CAPSULE PO SCH (06:00)
[2016-11-09] MEDS: LEVOTHYROXINE 0.125 MG TAB (125 MCG) PO SCH (06:00)
[2016-11-09] MEDS: OMEPRAZOLE 20 MG CAP PO SCH (06:00)
[2016-11-09] MEDS: MAGIC MOUTHWASH SUSPENSION BTL SS SCH ×4 (06:25→20:33)
[2016-11-09 06:37] VITALS: BP 146/94
[2016-11-09 09:09] LABS: MEAN CORPUSCULAR HEMOGLOBIN 30.9 pg (27.0-33.0); MEAN CORPUSCULAR HGB CONC 32.8 g/dl (32.0-36.5); MEAN CORPUSCULAR VOLUME 94.2 fl (80.0-96.0); RED CELL DISTRIBUTION WIDTH 14.9 % (11.5-14.5); WHITE BLOOD COUNT 13.6 K/mm3 (4.0-10.0)
[2016-11-09] MEDS: NYSTATIN 500,000 U/5 ML SUSP UDC SS SCH ×2 (09:16→20:31)
[2016-11-09] MEDS: ADVAIR DISKUS 250/50 INH PWD INH SCH ×2 (09:16→20:31)
[2016-11-09] MEDS: predniSONE 10 MG TAB PO SCH (09:17)
[2016-11-09] MEDS: BISOPROLOL FUM 2.5 MG PER 1/2TAB PO SCH (09:17)
[2016-11-09] MEDS: ASPIRIN 81 MG ENTERIC TAB PO SCH (09:17)
[2016-11-09] MEDS: CYANOCOBALAMIN 500 MCG TAB PO SCH (09:17)
[2016-11-09 09:25] LABS: CALCIUM LEVEL 9.6 MG/DL (8.8-10.2); CREATININE FOR GFR 1.17 MG/DL (0.55-1.02); GLOMERULAR FILTRATION RATE 48.4 (>39); POTASSIUM SERUM 4.9 MEQ/L (3.5-5.1)
--- NOTE | 2016-11-09 11:05 | REP ---
CHEST, TWO VIEWS: HISTORY: Pleural effusion. COMPARISON: 10/29/2016 There is elevation of the right hemidiaphragm. Increased density is present in the right middle and lower lobes, consistent with an infiltrate that is decreased compared to the previous study. The left lung is clear. There has been resolution of the previously noted right pleural effusion. The heart is normal in size. The pulmonary vasculature is normal in appearance. The bony structure is intact. IMPRESSION: 1. Right middle and lower lobe infiltrates, decreased compared to the previous study. 2. There has been resolution of the previously noted right pleural effusion. Signed by Cesar Farrell MD 11/09/2016 11:25 A
--- NOTE | 2016-11-09 11:19 | IPNPDOC ---
Subjective Date Seen The patient was seen on 11/09/16. Subjective Chief Complaint/HPI The patient is a 70-year-old female admitted with a reason for visit of Unspecified Depressive Disorder. Events since last encounter Patient is awake but refuses to provide any history. She is lying in bed. She does not answer questions. She does not appear in any distress. She does not make eye contact. Nursing reports that she has been out of bed to the bathroom. She is refusing to take medications and has refused to eat breakfast. General: Reports: ROS Unobtainable Objective Physical Examination General Exam: Positive: Alert ENT Exam: Positive: Atraumatic, Other ENT (mucous membranes appear dry. ) Chest Exam: Positive: Diminished (poor respiratory effort) Heart Exam: Positive: Normal S1, Normal S2, Rate Normal, Regular Rhythm, Negative: Murmurs, Rubs Abdomen Exam: Positive: Normal bowel sounds, Soft, Negative: Hepatospenomegaly Assessment /Plan Problems (1) Decreased oral intake Status: Acute Problem Text: * Patient with continued poor oral intake * CBC/CMP daily * Encourage by mouth intake- Monitor I/O * Continue to request UA/urine culture- pt has refused to provide sample. * CT A&P 11/04/16 No acute abn. * Hold Lasix/KCL related to increased SCr today. /encourage PO intake. (2) Pleural effusion Status: Chronic Problem Text: * CTA chest indicated moderate pleural effusion and right middle lobe consolidation. * Patient did not wish to proceed with thoracentesis. * Patient and daughter did not wish to proceed with any invasive procedures. * Patient was placed on supplemental oxygen 2 L nasal cannula. * CXR 11/09/16 decreased right mid and lower lung infiltrates and resolution of right pleural effusion. * HELD po lasix/KCL 11/09/16 related to elevated serum creatinine and poor oral intake. * Closely monitor. (3) HLD (hyperlipidemia) Status: Chronic Problem Text: * Statin. (4) Hypothyroid Status: Chronic Problem Text: * Continue supplement. (5) HTN (hypertension) Status: Chronic Problem Text: * Zebeta,Lasix. (6) COPD (chronic obstructive pulmonary disease) Status: Chronic Problem Text: * Advair, prednisone. (7) Lung cancer Status: Chronic Problem Text: * Pt with Possible Lung malignancy, but no clear diagnosis. 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 Pt did not want any invasive workup, so the mass was not biopsied to establish definitive diagnosis. * Patient has declined any invasive procedures. (8) GERD (gastroesophageal reflux disease) Status: Chronic Problem Text: * PPI. (9) Medication refused Status: Chronic Problem Text: * Patient continues to frequently refuse medications. (10) Leukocytosis Status: Acute Problem Text: * Patient is afebrile. * Chest x-ray as noted above * UA/urine culture pending. Initially requested 11/04. Has been unable to obtain. Requesting again today. Sample is still pending. * Continue with daily labs. Plan/VTE VTE Prophylaxis Ordered?: Yes (TEDS/ambulatory) VS[facility] Vital Signs/I&O Vital Signs Date Time Temp Pulse Resp B/P Pulse Ox O2 Delivery O2 Flow Rate FiO2 11/09/16 10:12 Nasal Cannula 2.0 11/09/16 09:17 88 146/94 11/09/16 06:37 96.6 18 11/07/16 14:15 100 11/06/16 18:00 90 I&O- Last 24 Hours up to 6 AM 11/09/16 06:00 Intake Total 400 ml Output Total 226 ml Balance 174 ml Laboratory Data 24H LABS Laboratory Tests 2 11/09/16 08:46: Anion Gap 13, Blood Urea Nitrogen 30H, Creatinine 1.17H, Sodium Level 138, Potassium Level 4.9, Chloride Level 101, Carbon Dioxide Level 24, Calcium Level 9.6, Glomerular Filtration Rate 48.4 CBC/BMP Laboratory Tests 11/09/16 08:46 Calcium Level 9.6, Red Blood Count 4.91, Mean Corpuscular Volume 94.2, Mean Corpuscular Hemoglobin 30.9, Mean Corpuscular Hemoglobin Concent 32.8, Red Cell Distribution Width 14.9 H Shanika De Souza Nov 09, 2016 11:18
[2016-11-09 18:00] VITALS: BP 112/62
--- NOTE | 2016-11-09 18:11 | IPN ---
DATE: 11/09/2016 HISTORY: A 70-year-old female with a history of depression who was transferred to our unit after medical stabilization on the medical floor. She was treated for dehydration and urinary tract infection (UTI). The patient has a chest CT indicating a lung malignancy detected. The patient had a pleural effusion and she refused to have medical workup. MEDICATIONS: - Effexor XR 150 mg by mouth every morning - trazodone 100 mg by mouth at bedtime SUBJECTIVE: "I don't feel good." OBJECTIVE: The patient was selectively mute early in the morning. She refused to take the medications and to eat breakfast, but later with the help of staff, she ate half of the tray and took around 300 mL of fluid. The patient then took the medication. She refused the laboratories early on in the morning, but then she agreed to be drawn later on. Her labs reflect the fact that she is not drinking appropriately. Her BUN is 30 and creatinine is 1.17. With the help of staff and constant redirection, the patient was taken to the shower. After that, she was somewhat more activated and was able to engage in minimal interaction. Her speech is poor, soft, and monotone. The patient reports feeling very depressed and significant cognitive distortions. MENTAL STATUS EXAMINATION: The patient is dressed in hospital gown. The patient is intermittently selectively mute. Speech is soft and monotone. Mood is depressed. Affect is restricted. No evidence of delusions or hallucinations. Memory, attention and concentration appear to be affected by her depression. The patient is denying suicidal or homicidal ideations, but she states that "does not want to live." Insight and judgment are poor. ASSESSMENT: [place] I: Major depressive disorder. AXIS II: Deferred. AXIS III: Chronic obstructive pulmonary disease (COPD), hypothyroidism, gastroesophageal reflux disease (GERD), hyperlipidemia, impaired hearing, and lung malignancy is suspected. PLAN: 1. Continue with Effexor XR 150 mg by mouth every morning. 2. Continue with trazodone 100 mg by mouth at bedtime. 3. Continue close observation.
[2016-11-09] MEDS: traZODone 100 MG TAB PO SCH (20:31)
[2016-11-09] MEDS: SIMVASTATIN 20 MG TAB PO SCH (20:31)
[2016-11-09] MEDS: DOCUSATE SODIUM 100 MG CAP PO SCH (20:31)
[2016-11-10] MEDS: LEVOTHYROXINE 0.125 MG TAB (125 MCG) PO SCH (06:08)
[2016-11-10] MEDS: OMEPRAZOLE 20 MG CAP PO SCH (06:08)
[2016-11-10] MEDS: VENLAFAXINE **XR** 75MG CAPSULE PO SCH (06:08)
[2016-11-10 06:33] VITALS: BP 110/59
[2016-11-10] MEDS: MAGIC MOUTHWASH SUSPENSION BTL SS SCH ×4 (06:33→20:32)
[2016-11-10 07:15] LABS: MEAN CORPUSCULAR HEMOGLOBIN 30.9 pg (27.0-33.0); MEAN CORPUSCULAR VOLUME 93.8 fl (80.0-96.0); RED CELL DISTRIBUTION WIDTH 14.8 % (11.5-14.5); WHITE BLOOD COUNT 15.1 K/mm3 (4.0-10.0)
[2016-11-10 07:38] LABS: ALBUMIN 3.4 GM/DL (3.2-5.2); BILIRUBIN,TOTAL 1.1 MG/DL (0.2-1.0); CALCIUM LEVEL 9.4 MG/DL (8.8-10.2); CREATININE FOR GFR 1.17 MG/DL (0.55-1.02); GLOMERULAR FILTRATION RATE 48.4 (>39); POTASSIUM SERUM 4.7 MEQ/L (3.5-5.1); TOTAL PROTEIN 6.8 GM/DL (6.4-8.2)
[2016-11-10] MEDS: predniSONE 10 MG TAB PO SCH (08:39)
[2016-11-10] MEDS: BISOPROLOL FUM 2.5 MG PER 1/2TAB PO SCH (08:40)
[2016-11-10] MEDS: CYANOCOBALAMIN 500 MCG TAB PO SCH (08:40)
[2016-11-10] MEDS: ASPIRIN 81 MG ENTERIC TAB PO SCH (08:41)
[2016-11-10] MEDS: NYSTATIN 500,000 U/5 ML SUSP UDC SS SCH ×2 (08:42→20:28)
[2016-11-10] MEDS: ADVAIR DISKUS 250/50 INH PWD INH SCH ×2 (08:42→20:29)
--- NOTE | 2016-11-10 14:40 | IPNPDOC ---
Subjective Date Seen The patient was seen on 11/10/16. Subjective Chief Complaint/HPI The patient is a 70-year-old female admitted with a reason for visit of Unspecified Depressive Disorder. Events since last encounter Pt is non verbal. General: Reports: ROS Unobtainable Objective Physical Examination General Exam: Positive: Alert ENT Exam: Positive: Atraumatic, Other ENT (mucous membranes appear dry. ) Chest Exam: Positive: Diminished (poor respiratory effort) Heart Exam: Positive: Normal S1, Normal S2, Rate Normal, Regular Rhythm, Negative: Murmurs, Rubs Abdomen Exam: Positive: Normal bowel sounds, Soft, Negative: Hepatospenomegaly Assessment /Plan Problems (1) Decreased oral intake Status: Acute Problem Text: * Patient with continued poor oral intake * CBC/CMP daily * Encourage by mouth intake- Monitor I/O * UA unremarkable/UC pending. * CT A&P 11/04/16 No acute abn. * Hold Lasix/KCL related to increased SCr 11/09/16. /encourage PO intake * Cont to hold Lasix. (2) Pleural effusion Status: Chronic Problem Text: * CTA chest indicated moderate pleural effusion and right middle lobe consolidation. * Patient did not wish to proceed with thoracentesis. * Patient and daughter did not wish to proceed with any invasive procedures. * Patient was placed on supplemental oxygen 2 L nasal cannula. * CXR 11/09/16 decreased right mid and lower lung infiltrates and resolution of right pleural effusion. * HELD po lasix/KCL 11/09/16 related to elevated serum creatinine and poor oral intake. * Closely monitor. * Cont to hold lasix for now. (3) HLD (hyperlipidemia) Status: Chronic Problem Text: * Statin. (4) Hypothyroid Status: Chronic Problem Text: * Continue supplement. (5) HTN (hypertension) Status: Chronic Problem Text: * Zebeta * Lasix on hold. (6) COPD (chronic obstructive pulmonary disease) Status: Chronic Problem Text: * Advair, prednisone. (7) Lung cancer Status: Chronic Problem Text: * Pt with Possible Lung malignancy, but no clear diagnosis. 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 Pt did not want any invasive workup, so the mass was not biopsied to establish definitive diagnosis. * Patient has declined any invasive procedures. (8) GERD (gastroesophageal reflux disease) Status: Chronic Problem Text: * PPI. (9) Medication refused Status: Chronic Problem Text: * Patient continues to frequently refuse medications. (10) Leukocytosis Status: Acute Problem Text: * Patient is afebrile. * Chest x-ray as noted above * UA unremarkable/urine culture pending. * request GI panel. * Continue with daily labs. Plan/VTE VTE Prophylaxis Ordered?: Yes (TEDS/ambulatory) VS, I&O, 24H, [facility] Vital Signs/I&O Vital Signs Date Time Temp Pulse Resp B/P Pulse Ox O2 Delivery O2 Flow Rate FiO2 11/10/16 14:11 Nasal Cannula 2.0 11/10/16 08:40 110 110/60 11/10/16 06:33 99.5 20 92 11/09/16 18:00 94 I&O- Last 24 Hours up to 6 AM 11/10/16 06:00 Intake Total 1540 ml Balance 1540 ml Laboratory Data 24H LABS Laboratory Tests 2 11/10/16 07:05: Blood Urea Nitrogen 34H, Creatinine 1.17H, Sodium Level 136, Potassium Level 4.7 , Chloride Level 98, Carbon Dioxide Level 26, Calcium Level 9.4, Aspartate Amino Transf (AST/SGOT) 52H, Alanine Aminotransferase (ALT/SGPT) 78, Alkaline Phosphatase 113, Total Bilirubin 1.1H, Total Protein 6.8, Albumin 3.4, Albumin/ Globulin Ratio 1.00, Anion Gap 12, Glomerular Filtration Rate 48.4 11/10/16 09:00: Urine Amorphous Sediment SMALLH, Urine Appearance CLOUDYH, Urine Color LALI, Urine pH 5.0, Urine Specific Connell 1.024, Urine Protein NEGATIVE, Urine Glucose (UA) 1+H, Urine Ketones TRACEH, Urine Urobilinogen 0.2, Urine Bilirubin NEGATIVE, Urine Leukocyte Esterase NEGATIVE, Urine Bacteria (Auto) NEGATIVE, Urine Blood NEGATIVE, Urine Calcium Carbonate Cryst(Auto) , Urine Calcium Oxalate Cryst (Auto) , Urine Calcium Phosphate Enma (Auto) , Urine Cellular Casts , Urine Cystine Crystals , Urine Granular Casts (Auto) , Urine Hyaline Casts (Auto) 5, Urine Leucine Crystals , Urine Mucus (Auto) SMALL, Urine Nitrite NEGATIVE, Urine Oval Fat Bodies (Auto) , Urine RBC (Auto) 1, Urine Renal Epithelial Cells , Urine Sperm (Auto) , Urine Squamous Epithelial Cells 2 , Urine Transitional Epithelial Cells , Urine Trichomonas (Auto) , Urine Triple Phosphate Cryst (Auto) , Urine Tyrosine Crystals , Urine Uric Acid Crystals ( Auto) , Urine WBC (Auto) 1, Urine Waxy Casts (Auto) , Urine Yeast-Like Cells ( Auto) CBC/BMP Laboratory Tests 11/10/16 07:05 Calcium Level 9.4, Aspartate Amino Transf (AST/SGOT) 52 H, Alanine Aminotransferase (ALT/SGPT) 78, Alkaline Phosphatase 113, Total Bilirubin 1.1 H , Total Protein 6.8, Albumin 3.4, Red Blood Count 4.73, Mean Corpuscular Volume 93.8, Mean Corpuscular Hemoglobin 30.9, Mean Corpuscular Hemoglobin Concent 33.0 , Red Cell Distribution Width 14.8 H Microbiology Microbiology 11/10/16 Urine Culture, Received Pending Shanika De Souza Nov 10, 2016 14:40
[2016-11-10 18:00] VITALS: BP 139/67
[2016-11-10] MEDS: SIMVASTATIN 20 MG TAB PO SCH (20:28)
[2016-11-10] MEDS: DOCUSATE SODIUM 100 MG CAP PO SCH (20:28)
[2016-11-10] MEDS: traZODone 100 MG TAB PO SCH (20:28)
--- NOTE | 2016-11-10 21:22 | IPN ---
DATE: 11/10/2016 70-year-old female with history of depression, who was transferred from our unit to the medical floor to be treated for dehydration and urinary tract infection (UTI). She was stabilized and returned to our unit. The patient continues to be very depressed. Has a lung CT compatible with malignancy. MEDICATIONS: - Effexor XR 150 mg by mouth in the morning - trazodone 100 mg by mouth at night SUBJECTIVE: "I don't feel good." OBJECTIVE: The patient appears to have some improvement today. The patient can interact a little better with staff. The patient was able to eat half of the tray and drink fluids appropriately. The patient continues to feel depressed. Speech is poor, soft and monotone. Continues to have severe psychomotor retardation. No evidence of auditory or visual hallucinations or delusions. The patient's insight and judgment are poor. MENTAL STATUS EXAMINATION: The patient is not cooperative. Poor eye contact. Speech is slow and monotone. Mood is depressed and anxious. Affect is very restricted. No delusions or hallucinations. Memory, attention and concentration are impaired by her depression. The patient denies suicidal or homicidal ideation during the interview. Insight and judgment are very poor. ASSESSMENT: [place] I: Bipolar disorder, depressed episode. [place] II: Deferred. [place] III: Chronic obstructive pulmonary disease (COPD), hypothyroidism, gastroesophageal reflux disease (GERD), hyperlipidemia, impaired hearing, and lung malignancy suspected. PLAN: Continue with Effexor XR 150 mg by mouth in the morning. Continue with trazodone 100 mg by mouth at night. Continue with close observation.
[2016-11-11] MEDS: OMEPRAZOLE 20 MG CAP PO SCH (06:18)
[2016-11-11] MEDS: LEVOTHYROXINE 0.125 MG TAB (125 MCG) PO SCH (06:18)
[2016-11-11] MEDS: VENLAFAXINE **XR** 75MG CAPSULE PO SCH (06:18)
[2016-11-11] MEDS: MAGIC MOUTHWASH SUSPENSION BTL SS SCH ×4 (06:20→20:19)
[2016-11-11 07:15] VITALS: BP 123/72
[2016-11-11 07:33] LABS: BASO % 0.2 % (0.0-1.0); EOS # 0.1 K/mm3 (0.0-0.50); EOS % 0.8 % (0.0-3.0); LARGE UNSTAINED CELL # 0.2 K/mm3 (0.0-0.4); LARGE UNSTAINED CELL % 1.7 % (0.0-4.0); LYMPH # 2.6 K/mm3 (1.5-4.5); MEAN CORPUSCULAR HEMOGLOBIN 30.9 pg (27.0-33.0); MEAN CORPUSCULAR HGB CONC 32.9 g/dl (32.0-36.5); MEAN CORPUSCULAR VOLUME 93.9 fl (80.0-96.0); MONO # 0.6 K/mm3 (0.0-0.8); MONO % 4.3 % (0.0-5.0); PLATELET COUNT, AUTOMATED 366 k/mm3 (150-450); RED CELL DISTRIBUTION WIDTH 14.9 % (11.5-14.5); WHITE BLOOD COUNT 13.5 K/mm3 (4.0-10.0)
[2016-11-11 07:41] LABS: ALBUMIN 3.4 GM/DL (3.2-5.2); ALBUMIN/GLOBULIN RATIO 0.97 (1.00-1.93); BILIRUBIN,TOTAL 0.8 MG/DL (0.2-1.0); CALCIUM LEVEL 8.9 MG/DL (8.8-10.2); CREATININE FOR GFR 0.98 MG/DL (0.55-1.02); GLOMERULAR FILTRATION RATE 59.4 (>39); POTASSIUM SERUM 4.4 MEQ/L (3.5-5.1); TOTAL PROTEIN 6.9 GM/DL (6.4-8.2)
[2016-11-11] MEDS: predniSONE 10 MG TAB PO SCH (09:57)
[2016-11-11] MEDS: BISOPROLOL FUM 2.5 MG PER 1/2TAB PO SCH (09:57)
[2016-11-11] MEDS: CYANOCOBALAMIN 500 MCG TAB PO SCH (09:58)
[2016-11-11] MEDS: NYSTATIN 500,000 U/5 ML SUSP UDC SS SCH ×2 (09:58→20:19)
[2016-11-11] MEDS: ASPIRIN 81 MG ENTERIC TAB PO SCH (09:58)
[2016-11-11] MEDS: ADVAIR DISKUS 250/50 INH PWD INH SCH ×2 (09:58→20:19)
--- NOTE | 2016-11-11 12:14 | IPNPDOC ---
Subjective Date Seen The patient was seen on 11/11/16. Subjective Chief Complaint/HPI The patient is a 70-year-old female admitted with a reason for visit of Unspecified Depressive Disorder. Events since last encounter Patient is sitting at side of bed. She avoids eye contact however will answer with very short responses. She denies pain. She did have a light breakfast this morning and has had fluids to drink. She reports no chest pain, shortness of breath, abdominal pain. She denies any urinary complaints, dysuria, frequency, urgency. She denies diarrhea or constipation.. Overall she has no verbalizes concerns at this time. Objective Physical Examination General Exam: Positive: Alert ENT Exam: Positive: Atraumatic, Other ENT Chest Exam: Positive: Clear to auscultation, Normal air movement (overall good air movement, reduced breath sounds at bases.) Heart Exam: Positive: Normal S1, Normal S2, Rate Normal, Regular Rhythm, Negative: Murmurs, Rubs Abdomen Exam: Positive: Normal bowel sounds, Soft, Negative: Hepatospenomegaly Assessment /Plan Problems (1) Decreased oral intake Status: Acute Problem Text: * Patient with improved oral intake * CBC/CMP daily * Encourage by mouth intake- Monitor I/O * UA unremarkable/UC negative. * CT A&P 11/04/16 No acute abn. * Will restart by mouth Lasix/KCL as patient has been resuming oral intake, serum creatinine returned to baseline. * Continue to closely monitor (2) Pleural effusion Status: Chronic Problem Text: * CTA chest indicated moderate pleural effusion and right middle lobe consolidation. * Patient did not wish to proceed with thoracentesis. * Patient and daughter did not wish to proceed with any invasive procedures. * Patient was placed on supplemental oxygen 2 L nasal cannula. * CXR 11/09/16 decreased right mid and lower lung infiltrates and resolution of right pleural effusion. * HELD po lasix/KCL 11/09/16 related to elevated serum creatinine and poor oral intake. * Closely monitor. * Plan to restart Lasix as above. (3) HLD (hyperlipidemia) Status: Chronic Problem Text: * Statin. (4) Hypothyroid Status: Chronic Problem Text: * Continue supplement. (5) HTN (hypertension) Status: Chronic Problem Text: * Zebeta * Lasix (6) COPD (chronic obstructive pulmonary disease) Status: Chronic Problem Text: * Advair, prednisone. (7) Lung cancer Status: Chronic Problem Text: * Pt with Possible Lung malignancy, but no clear diagnosis. 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 Pt did not want any invasive workup, so the mass was not biopsied to establish definitive diagnosis. * Patient has declined any invasive procedures. (8) GERD (gastroesophageal reflux disease) Status: Chronic Problem Text: * PPI. (9) Medication refused Status: Chronic Problem Text: * Improved compliance with medications. (10) Leukocytosis Status: Acute Problem Text: * Patient is afebrile. * Chest x-ray as noted above * UA unremarkable/urine culture negative. * request GI panel. Pending at this time * Continue with daily labs. WBC trending downward. (11) Elevated LFTs Status: Acute Problem Text: * Continue with daily labs * Check right upper quadrant ultrasound Plan/VTE VTE Prophylaxis Ordered?: Yes (TEDS/ambulatory) VS, I&O, 24H, [facility] Vital Signs/I&O Vital Signs Date Time Temp Pulse Resp B/P Pulse Ox O2 Delivery O2 Flow Rate FiO2 11/11/16 10:18 Nasal Cannula 2.0 11/11/16 09:57 108 123/72 11/11/16 07:15 97.8 20 11/10/16 06:33 92 11/09/16 18:00 94 I&O- Last 24 Hours up to 6 AM 11/11/16 05:59 Intake Total 1280 ml Output Total 700 ml Balance 580 ml Laboratory Data 24H LABS Laboratory Tests 2 11/11/16 07:14: Blood Urea Nitrogen 34H, Creatinine 0.98, Sodium Level 135L, Potassium Level 4.4 , Chloride Level 98, Carbon Dioxide Level 25, Calcium Level 8.9, Aspartate Amino Transf (AST/SGOT) 70H, Alanine Aminotransferase (ALT/SGPT) 91H, Alkaline Phosphatase 138H, Total Bilirubin 0.8, Total Protein 6.9, Albumin 3.4, Albumin/ Globulin Ratio 0.97L, Anion Gap 12, White Blood Count 13.5H, Red Blood Count 4.62, Hemoglobin 14.3, Hematocrit 43.4, Mean Corpuscular Volume 93.9, Mean Corpuscular Hemoglobin 30.9, Mean Corpuscular Hemoglobin Concent 32.9, Red Cell Distribution Width 14.9H, Platelet Count 366, Neutrophils (%) (Auto) 74.0H, Lymphocytes (%) (Auto) 19.0L, Monocytes (%) (Auto) 4.3, Eosinophils (%) (Auto) 0.8, Basophils (%) (Auto) 0.2, Neutrophils # (Auto) 10.0H, Lymphocytes # (Auto) 2.6, Monocytes # (Auto) 0.6, Eosinophils # (Auto) 0.1, Basophils # (Auto) 0.0, Glomerular Filtration Rate 59.4, Large Unclassified Cells # 0.2, Large Unclassified Cells % 1.7 CBC/BMP Laboratory Tests 11/11/16 07:14 Calcium Level 8.9, Aspartate Amino Transf (AST/SGOT) 70 H, Alanine Aminotransferase (ALT/SGPT) 91 H, Alkaline Phosphatase 138 H, Total Bilirubin 0.8, Total Protein 6.9, Albumin 3.4, Red Blood Count 4.62, Mean Corpuscular Volume 93.9, Mean Corpuscular Hemoglobin 30.9, Mean Corpuscular Hemoglobin Concent 32.9, Red Cell Distribution Width 14.9 H, Neutrophils (%) (Auto) 74.0 H , Lymphocytes (%) (Auto) 19.0 L, Monocytes (%) (Auto) 4.3, Eosinophils (%) (Auto ) 0.8, Basophils (%) (Auto) 0.2, Neutrophils # (Auto) 10.0 H, Lymphocytes # ( Auto) 2.6, Monocytes # (Auto) 0.6, Eosinophils # (Auto) 0.1, Basophils # (Auto) 0.0 Microbiology Microbiology 11/10/16 Urine Culture - Final, Complete Shanika De Souza Nov 11, 2016 12:14
[2016-11-11] MEDS: POTASSIUM CHLORIDE 10 MEQ SR TABLET PO SCH (13:15)
[2016-11-11] MEDS: FUROSEMIDE 40 MG TAB PO SCH (13:16)
--- NOTE | 2016-11-11 15:11 | REP ---
LIVER ULTRASOUND: HISTORY: Increased liver function. Multiple calcifications are present in the gallbladder consistent with cholelithiasis. The gallbladder wall measures 2.1 mm. The common bile duct measures 3.2 mm. The liver is hypoechoic in echogenicity. The pancreas is not seen due to overlying bowel gas. The right kidney measures 5.2 cm in transverse x 4.7 cm in AP x 10 cm in cephalocaudal dimensions. There is no hydronephrosis or mass. IMPRESSION: Cholelithiasis. Signed by Cesar Farrell MD 11/11/2016 03:14 P
[2016-11-11 18:00] VITALS: BP 133/73
[2016-11-11] MEDS: SIMVASTATIN 20 MG TAB PO SCH (20:19)
[2016-11-11] MEDS: DOCUSATE SODIUM 100 MG CAP PO SCH (20:19)
[2016-11-11] MEDS: traZODone 100 MG TAB PO SCH (20:19)
--- NOTE | 2016-11-12 02:13 | IPN ---
DATE: 11/11/2016 70-year-old female with history of bipolar disorder, who was transferred to our unit from the medical floor after being treated for dehydration and urinary tract infection (UTI). Patient was severely depressed, also has lung CT compatible with malignancy. MEDICATIONS: - Effexor XR 150 mg by mouth in the morning - trazodone 100 mg by mouth at night SUBJECTIVE: "I feel a little better today." OBJECTIVE: The patient has improved from yesterday. Patient ate almost all of the tray at breakfast and is drinking fluid appropriately. Patient is somewhat more energetic. Patient is interacting better with staff and is not selectively mute. Patient is denying side effects from the medication. Patient reports sleeping well. No evidence of auditory or visual hallucinations or delusions. MENTAL STATUS EXAMINATION: The patient is cooperative, has fair eye contact. Speech is slow and monotone, but is no longer selectively mute. Mood is depressed and anxious, but is somewhat improved. Affect is restricted. No delusions or hallucinations. Memory, attention and concentration are impaired secondary to the depression. The patient is able to contract for safety and denies suicidal or homicidal ideation during the interview. Insight and judgment is limited. ASSESSMENT: Bipolar disorder, depressed episode. PLAN: 1. Continue Effexor XR 150 mg by mouth in the morning. 2. Continue trazodone 100 mg by mouth at night. 3. Continue close observation.
[2016-11-12] MEDS: MAGIC MOUTHWASH SUSPENSION BTL SS SCH ×4 (06:01→21:00)
[2016-11-12] MEDS: VENLAFAXINE **XR** 75MG CAPSULE PO SCH (06:02)
[2016-11-12] MEDS: LEVOTHYROXINE 0.125 MG TAB (125 MCG) PO SCH (06:02)
[2016-11-12] MEDS: OMEPRAZOLE 20 MG CAP PO SCH (06:02)
[2016-11-12 06:48] VITALS: BP 107/62
[2016-11-12 07:27] LABS: MEAN CORPUSCULAR HEMOGLOBIN 31.5 pg (27.0-33.0); MEAN CORPUSCULAR HGB CONC 33.3 g/dl (32.0-36.5); MEAN CORPUSCULAR VOLUME 94.5 fl (80.0-96.0); WHITE BLOOD COUNT 13.3 K/mm3 (4.0-10.0)
[2016-11-12 07:45] LABS: ALBUMIN 3.2 GM/DL (3.2-5.2); BILIRUBIN,TOTAL 0.7 MG/DL (0.2-1.0); CALCIUM LEVEL 8.6 MG/DL (8.8-10.2); POTASSIUM SERUM 4.4 MEQ/L (3.5-5.1); TOTAL PROTEIN 6.4 GM/DL (6.4-8.2)
[2016-11-12] MEDS: ASPIRIN 81 MG ENTERIC TAB PO SCH (08:40)
[2016-11-12] MEDS: FUROSEMIDE 40 MG TAB PO SCH (08:40)
[2016-11-12] MEDS: POTASSIUM CHLORIDE 10 MEQ SR TABLET PO SCH (08:40)
[2016-11-12] MEDS: predniSONE 10 MG TAB PO SCH (08:40)
[2016-11-12] MEDS: ADVAIR DISKUS 250/50 INH PWD INH SCH ×3 (08:40→21:48)
[2016-11-12] MEDS: CYANOCOBALAMIN 500 MCG TAB PO SCH (08:40)
[2016-11-12] MEDS: BISOPROLOL FUM 2.5 MG PER 1/2TAB PO SCH (08:41)
[2016-11-12] MEDS: NYSTATIN 500,000 U/5 ML SUSP UDC SS SCH ×2 (08:41→21:00)
[2016-11-12 18:00] VITALS: BP 129/60
[2016-11-12] MEDS: SIMVASTATIN 20 MG TAB PO SCH (21:00)
[2016-11-12] MEDS: DOCUSATE SODIUM 100 MG CAP PO SCH (21:00)
[2016-11-12] MEDS: traZODone 100 MG TAB PO SCH (21:00)
[2016-11-13 06:00] VITALS: BP 113/58
[2016-11-13] MEDS: VENLAFAXINE **XR** 75MG CAPSULE PO SCH (06:00)
[2016-11-13] MEDS: LEVOTHYROXINE 0.125 MG TAB (125 MCG) PO SCH (06:00)
[2016-11-13] MEDS: OMEPRAZOLE 20 MG CAP PO SCH (06:00)
[2016-11-13] MEDS: MAGIC MOUTHWASH SUSPENSION BTL SS SCH ×4 (06:47→22:09)
[2016-11-13 06:51] LABS: MEAN CORPUSCULAR HEMOGLOBIN 31.3 pg (27.0-33.0); MEAN CORPUSCULAR HGB CONC 33.1 g/dl (32.0-36.5); MEAN CORPUSCULAR VOLUME 94.4 fl (80.0-96.0); WHITE BLOOD COUNT 11.3 K/mm3 (4.0-10.0)
[2016-11-13 07:09] LABS: ALBUMIN 3.1 GM/DL (3.2-5.2); ALBUMIN/GLOBULIN RATIO 1.03 (1.00-1.93); ALKALINE PHOSPHATASE 121 U/L (45-117); ALT/SGPT 82 U/L (12-78); ANION GAP 8 MEQ/L (8-16); AST/SGOT 45 U/L (15-37); BILIRUBIN,TOTAL 0.6 MG/DL (0.2-1.0); BLOOD UREA NITROGEN 27 MG/DL (7-18); CALCIUM LEVEL 8.6 MG/DL (8.8-10.2); CARBON DIOXIDE LEVEL 31 MEQ/L (21-32); CHLORIDE LEVEL 101 MEQ/L (98-107); CREATININE FOR GFR 0.79 MG/DL (0.55-1.02); GLOMERULAR FILTRATION RATE > 60.0 (>39); GLUCOSE, FASTING 87 MG/DL (83-110); POTASSIUM SERUM 4.4 MEQ/L (3.5-5.1); SODIUM LEVEL 140 MEQ/L (136-145); TOTAL PROTEIN 6.1 GM/DL (6.4-8.2)
[2016-11-13] MEDS: POTASSIUM CHLORIDE 10 MEQ SR TABLET PO SCH ×2 (09:00→12:17)
[2016-11-13] MEDS: ADVAIR DISKUS 250/50 INH PWD INH SCH ×3 (09:00→22:10)
[2016-11-13] MEDS: ASPIRIN 81 MG ENTERIC TAB PO SCH ×2 (09:00→12:17)
[2016-11-13] MEDS: BISOPROLOL FUM 2.5 MG PER 1/2TAB PO SCH (09:00)
[2016-11-13] MEDS: NYSTATIN 500,000 U/5 ML SUSP UDC SS SCH ×3 (09:00→22:09)
[2016-11-13] MEDS: FUROSEMIDE 40 MG TAB PO SCH ×2 (09:00→12:17)
[2016-11-13] MEDS: CYANOCOBALAMIN 500 MCG TAB PO SCH ×2 (09:00→12:17)
[2016-11-13] MEDS: predniSONE 10 MG TAB PO SCH ×2 (10:27→12:16)
[2016-11-13] MEDS ORDERED: traZODone 50 MG TAB PO PRN (12:00)
[2016-11-13 18:00] VITALS: BP 116/54
[2016-11-13] MEDS: DOCUSATE SODIUM 100 MG CAP PO SCH (22:10)
[2016-11-13] MEDS: SIMVASTATIN 20 MG TAB PO SCH (22:10)
[2016-11-14] MEDS: LEVOTHYROXINE 0.125 MG TAB (125 MCG) PO SCH (06:21)
[2016-11-14] MEDS: OMEPRAZOLE 20 MG CAP PO SCH (06:21)
[2016-11-14] MEDS: VENLAFAXINE **XR** 75MG CAPSULE PO SCH (06:22)
[2016-11-14 06:28] VITALS: BP 132/60
[2016-11-14] MEDS: MAGIC MOUTHWASH SUSPENSION BTL SS SCH ×4 (07:05→21:43)
[2016-11-14 08:41] LABS: BASO % 0.2 % (0.0-1.0); EOS # 0.2 K/mm3 (0.0-0.50); EOS % 1.3 % (0.0-3.0); LARGE UNSTAINED CELL # 0.2 K/mm3 (0.0-0.4); LARGE UNSTAINED CELL % 1.8 % (0.0-4.0); LYMPH # 3.2 K/mm3 (1.5-4.5); LYMPH % 22.5 % (24.0-44.0); MEAN CORPUSCULAR HEMOGLOBIN 31.3 pg (27.0-33.0); MEAN CORPUSCULAR HGB CONC 32.5 g/dl (32.0-36.5); MEAN CORPUSCULAR VOLUME 96.3 fl (80.0-96.0); MONO # 0.9 K/mm3 (0.0-0.8); MONO % 6.9 % (0.0-5.0); NEUTROPHILS % 67.3 % (36.0-66.0); PLATELET COUNT, AUTOMATED 330 k/mm3 (150-450); RED CELL DISTRIBUTION WIDTH 15.1 % (11.5-14.5); WHITE BLOOD COUNT 13.3 K/mm3 (4.0-10.0)
[2016-11-14] MEDS: ADVAIR DISKUS 250/50 INH PWD INH SCH ×2 (09:02→21:43)
[2016-11-14] MEDS: CYANOCOBALAMIN 500 MCG TAB PO SCH (09:02)
[2016-11-14] MEDS: NYSTATIN 500,000 U/5 ML SUSP UDC SS SCH ×2 (09:02→21:44)
[2016-11-14] MEDS: ASPIRIN 81 MG ENTERIC TAB PO SCH (09:02)
[2016-11-14] MEDS: predniSONE 10 MG TAB PO SCH (09:02)
[2016-11-14] MEDS: POTASSIUM CHLORIDE 10 MEQ SR TABLET PO SCH (09:03)
[2016-11-14] MEDS: FUROSEMIDE 40 MG TAB PO SCH (09:03)
[2016-11-14] MEDS: BISOPROLOL FUM 2.5 MG PER 1/2TAB PO SCH (09:15)
[2016-11-14 09:20] LABS: ALBUMIN 3.4 GM/DL (3.2-5.2); ALBUMIN/GLOBULIN RATIO 1.06 (1.00-1.93); BILIRUBIN,TOTAL 0.6 MG/DL (0.2-1.0); CALCIUM LEVEL 8.9 MG/DL (8.8-10.2); CREATININE FOR GFR 1.01 MG/DL (0.55-1.02); GLOMERULAR FILTRATION RATE 57.4 (>39); POTASSIUM SERUM 4.3 MEQ/L (3.5-5.1); TOTAL PROTEIN 6.6 GM/DL (6.4-8.2)
--- NOTE | 2016-11-14 10:34 | IPNPDOC ---
Subjective Date Seen The patient was seen on 11/14/16. Subjective Chief Complaint/HPI The patient is a 70-year-old female admitted with a reason for visit of Unspecified Depressive Disorder. Events since last encounter Pt is non verbal. General: Reports: ROS Unobtainable Objective Physical Examination General Exam: Positive: Alert ENT Exam: Positive: Atraumatic, Other ENT (mucous membranes appear dry. ) Chest Exam: Positive: Diminished (poor respiratory effort) Heart Exam: Positive: Normal S1, Normal S2, Rate Normal, Regular Rhythm, Negative: Murmurs, Rubs Abdomen Exam: Positive: Normal bowel sounds, Soft, Negative: Hepatospenomegaly Assessment /Plan Problems (1) Decreased oral intake Status: Acute Problem Text: * Patient with improved oral intake * CBC/CMP daily * Encourage by mouth intake- Monitor I/O * UA unremarkable/UC negative. * CT A&P 11/04/16 No acute abn. * Will continue Lasix/KCL as patient has continuing with oral intake, serum creatinine at baseline. * Continue to closely monitor (2) Pleural effusion Status: Chronic Problem Text: * CTA chest indicated moderate pleural effusion and right middle lobe consolidation. * Patient did not wish to proceed with thoracentesis. * Patient and daughter did not wish to proceed with any invasive procedures. * Patient was placed on supplemental oxygen 2 L nasal cannula. * CXR 11/09/16 decreased right mid and lower lung infiltrates and resolution of right pleural effusion. * HELD po lasix/KCL 11/09/16 related to elevated serum creatinine and poor oral intake. * Closely monitor. * Lasix continued as above. (3) HLD (hyperlipidemia) Status: Chronic Problem Text: * Statin. (4) Hypothyroid Status: Chronic Problem Text: * Continue supplement. (5) HTN (hypertension) Status: Chronic Problem Text: * Zebeta * Lasix (6) COPD (chronic obstructive pulmonary disease) Status: Chronic Problem Text: * Advair, prednisone. (7) Lung cancer Status: Chronic Problem Text: * Pt with Possible Lung malignancy, but no clear diagnosis. 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 Pt did not want any invasive workup, so the mass was not biopsied to establish definitive diagnosis. * Patient has declined any invasive procedures. (8) GERD (gastroesophageal reflux disease) Status: Chronic Problem Text: * PPI. (9) Medication refused Status: Chronic Problem Text: * Improved compliance with medications. (10) Leukocytosis Status: Acute Problem Text: * Patient is afebrile. * Chest x-ray as noted above * UA unremarkable/urine culture negative. * request GI panel. Pending at this time * Continue with daily labs. (11) Elevated LFTs Status: Acute Problem Text: * Continue with daily labs * right upper quadrant ultrasound -cholelithiasis Plan/VTE VTE Prophylaxis Ordered?: Yes (TEDS/ambulatory) Disposition as per Psychiatry. VS, I&O, 24H, [facility] Vital Signs/I&O Vital Signs Date Time Temp Pulse Resp B/P Pulse Ox O2 Delivery O2 Flow Rate FiO2 11/14/16 09:15 90 132/71 11/14/16 08:28 Nasal Cannula 2.0 11/14/16 06:28 96.0 18 96 11/10/16 06:33 92 I&O- Last 24 Hours up to 6 AM 11/14/16 06:00 Intake Total 1280 ml Balance 1280 ml Laboratory Data 24H LABS Laboratory Tests 2 11/14/16 08:29: Blood Urea Nitrogen 23H, Creatinine 1.01, Sodium Level 137, Potassium Level 4.3 , Chloride Level 99, Carbon Dioxide Level 29, Calcium Level 8.9, Aspartate Amino Transf (AST/SGOT) 56H, Alanine Aminotransferase (ALT/SGPT) 108H, Alkaline Phosphatase 151H, Total Bilirubin 0.6, Total Protein 6.6, Albumin 3.4, Albumin/ Globulin Ratio 1.06, Anion Gap 9, White Blood Count 13.3H, Red Blood Count 4.69 , Hemoglobin 14.7, Hematocrit 45.2, Mean Corpuscular Volume 96.3H, Mean Corpuscular Hemoglobin 31.3, Mean Corpuscular Hemoglobin Concent 32.5, Red Cell Distribution Width 15.1H, Platelet Count 330, Neutrophils (%) (Auto) 67.3H, Lymphocytes (%) (Auto) 22.5L, Monocytes (%) (Auto) 6.9H, Eosinophils (%) (Auto) 1.3, Basophils (%) (Auto) 0.2, Neutrophils # (Auto) 9.0H, Lymphocytes # (Auto) 3.2, Monocytes # (Auto) 0.9H, Eosinophils # (Auto) 0.2, Basophils # (Auto) 0.0, Glomerular Filtration Rate 57.4, Large Unclassified Cells # 0.2, Large Unclassified Cells % 1.8 CBC/BMP Laboratory Tests 11/14/16 08:29 Calcium Level 8.9, Aspartate Amino Transf (AST/SGOT) 56 H, Alanine Aminotransferase (ALT/SGPT) 108 H, Alkaline Phosphatase 151 H, Total Bilirubin 0.6, Total Protein 6.6, Albumin 3.4, Red Blood Count 4.69, Mean Corpuscular Volume 96.3 H, Mean Corpuscular Hemoglobin 31.3, Mean Corpuscular Hemoglobin Concent 32.5, Red Cell Distribution Width 15.1 H, Neutrophils (%) (Auto) 67.3 H , Lymphocytes (%) (Auto) 22.5 L, Monocytes (%) (Auto) 6.9 H, Eosinophils (%) ( Auto) 1.3, Basophils (%) (Auto) 0.2, Neutrophils # (Auto) 9.0 H, Lymphocytes # ( Auto) 3.2, Monocytes # (Auto) 0.9 H, Eosinophils # (Auto) 0.2, Basophils # (Auto ) 0.0 Microbiology Microbiology 11/10/16 Urine Culture - Final, Complete Shanika De Souza Nov 14, 2016 10:34
[2016-11-14 18:00] VITALS: BP 116/60
[2016-11-14] MEDS: SIMVASTATIN 20 MG TAB PO SCH (21:42)
[2016-11-14] MEDS: DOCUSATE SODIUM 100 MG CAP PO SCH (21:43)
[2016-11-15] MEDS: VENLAFAXINE **XR** 75MG CAPSULE PO SCH (06:01)
[2016-11-15] MEDS: OMEPRAZOLE 20 MG CAP PO SCH (06:01)
[2016-11-15] MEDS: MAGIC MOUTHWASH SUSPENSION BTL SS SCH ×4 (06:01→21:02)
[2016-11-15] MEDS: LEVOTHYROXINE 0.125 MG TAB (125 MCG) PO SCH (06:01)
[2016-11-15 06:30] VITALS: BP 109/51
[2016-11-15 07:42] LABS: MEAN CORPUSCULAR HGB CONC 33.3 g/dl (32.0-36.5); MEAN CORPUSCULAR VOLUME 95.9 fl (80.0-96.0); RED CELL DISTRIBUTION WIDTH 15.2 % (11.5-14.5)
[2016-11-15 07:59] LABS: ALBUMIN 3.1 GM/DL (3.2-5.2); ALBUMIN/GLOBULIN RATIO 1.03 (1.00-1.93); ALKALINE PHOSPHATASE 138 U/L (45-117); ALT/SGPT 103 U/L (12-78); ANION GAP 11 MEQ/L (8-16); AST/SGOT 50 U/L (15-37); BILIRUBIN,TOTAL 0.7 MG/DL (0.2-1.0); BLOOD UREA NITROGEN 25 MG/DL (7-18); CALCIUM LEVEL 8.8 MG/DL (8.8-10.2); CARBON DIOXIDE LEVEL 30 MEQ/L (21-32); CHLORIDE LEVEL 98 MEQ/L (98-107); CREATININE FOR GFR 0.82 MG/DL (0.55-1.02); GLOMERULAR FILTRATION RATE > 60.0 (>39); GLUCOSE, FASTING 91 MG/DL (83-110); POTASSIUM SERUM 4.4 MEQ/L (3.5-5.1); SODIUM LEVEL 139 MEQ/L (136-145); TOTAL PROTEIN 6.1 GM/DL (6.4-8.2)
[2016-11-15] MEDS: predniSONE 10 MG TAB PO SCH (08:36)
[2016-11-15] MEDS: NYSTATIN 500,000 U/5 ML SUSP UDC SS SCH ×2 (08:36→21:02)
[2016-11-15] MEDS: CYANOCOBALAMIN 500 MCG TAB PO SCH (08:36)
[2016-11-15] MEDS: ASPIRIN 81 MG ENTERIC TAB PO SCH (08:36)
[2016-11-15] MEDS: FUROSEMIDE 40 MG TAB PO SCH (08:36)
[2016-11-15] MEDS: ADVAIR DISKUS 250/50 INH PWD INH SCH ×2 (08:37→21:02)
[2016-11-15] MEDS: POTASSIUM CHLORIDE 10 MEQ SR TABLET PO SCH (08:37)
[2016-11-15] MEDS: BISOPROLOL FUM 2.5 MG PER 1/2TAB PO SCH (08:43)
--- NOTE | 2016-11-15 09:45 | IPN ---
DATE: 11/14/2016 70-year-old female with history of bipolar disorder who was transferred from the medical floor after being treated for dehydration and urinary tract infection. Patient is very depressed. Patient has a lung CT compatible with malignancy but she does not want to have a medical workup. MEDICATIONS: - Effexor XR 150 mg by mouth every morning - trazodone 100 mg by mouth nightly SUBJECTIVE: Patient is selectively mute. OBJECTIVE: Patient is more depressed than a couple of days ago. Patient is selectively mute and when answered, answered with monosyllables and very soft. No evidence of psychotic symptoms. Patient ate very little of her trays today. No evidence of side effects from the medication. MENTAL STATUS EXAMINATION: Patient is wearing a hospital gown. Poor eye contact. Speech selectively mute. Mood depressed. Affect blunted. No evidence of delusions or hallucinations. Unable to test cognitive function. Insight and judgment is poor. ASSESSMENT: 1. Bipolar disorder, depressed episode. PLAN: 1. Continue with Effexor XR 150 mg by mouth every morning. 2. Trazodone 50 mg by mouth nightly as needed for insomnia. 3. Continue close observation.
--- NOTE | 2016-11-15 14:57 | IPNPDOC ---
Subjective Date Seen The patient was seen on 11/15/16. Subjective Chief Complaint/HPI The patient is a 70-year-old female admitted with a reason for visit of Unspecified Depressive Disorder. Events since last encounter Pt remains non verbal. She is not answering questions or responding . General: Reports: ROS Unobtainable Objective Physical Examination General Exam: Positive: Alert ENT Exam: Positive: Atraumatic Chest Exam: Positive: Diminished (poor respiratory effort) Heart Exam: Positive: Normal S1, Normal S2, Rate Normal, Regular Rhythm, Negative: Murmurs, Rubs Abdomen Exam: Positive: Normal bowel sounds, Soft, Negative: Hepatospenomegaly Assessment /Plan Problems (1) Decreased oral intake Status: Acute Problem Text: * Patient with improved oral intake * CBC/CMP daily * Encourage by mouth intake- Monitor I/O * UA unremarkable/UC negative. * CT A&P 11/04/16 No acute abn. * Will continue Lasix/KCL as patient has continuing with oral intake, serum creatinine at baseline. * Continue to closely monitor (2) Pleural effusion Status: Chronic Problem Text: * CTA chest indicated moderate pleural effusion and right middle lobe consolidation. * Patient did not wish to proceed with thoracentesis. * Patient and daughter did not wish to proceed with any invasive procedures. * Patient was placed on supplemental oxygen 2 L nasal cannula. * CXR 11/09/16 decreased right mid and lower lung infiltrates and resolution of right pleural effusion. * HELD po lasix/KCL 11/09/16 related to elevated serum creatinine and poor oral intake. * Closely monitor. * Lasix continued as above. (3) HLD (hyperlipidemia) Status: Chronic Problem Text: * Statin. (4) Hypothyroid Status: Chronic Problem Text: * Continue supplement. (5) HTN (hypertension) Status: Chronic Problem Text: * Zebeta * Lasix (6) COPD (chronic obstructive pulmonary disease) Status: Chronic Problem Text: * Advair, prednisone. (7) Lung cancer Status: Chronic Problem Text: * Pt with Possible Lung malignancy, but no clear diagnosis. 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 Pt did not want any invasive workup, so the mass was not biopsied to establish definitive diagnosis. * Patient has declined any invasive procedures. * CT brain secondary to AMS 10/21/16 NAD. * discussed with Dr Valetne today, related to con't fluctuating MS- proceed with MRI brain- requested. (8) GERD (gastroesophageal reflux disease) Status: Chronic Problem Text: * PPI. (9) Medication refused Status: Chronic Problem Text: * Improved compliance with medications. (10) Leukocytosis Status: Acute Problem Text: * Patient is afebrile. * Chest x-ray as noted above * UA unremarkable/urine culture negative. * request GI panel. Pending at this time * Continue with daily labs. (11) Elevated LFTs Status: Acute Problem Text: * Continue with daily labs- trending downward * right upper quadrant ultrasound -cholelithiasis * hepatitis profile with AM labs. * monitor Plan/VTE VTE Prophylaxis Ordered?: Yes (TEDS/ambulatory) VS, I&O, 24H, [facility] Vital Signs/I&O Vital Signs Date Time Temp Pulse Resp B/P Pulse Ox O2 Delivery O2 Flow Rate FiO2 11/15/16 08:43 82 117/56 11/15/16 06:30 96.5 20 91 2.0 11/14/16 08:28 Nasal Cannula 11/10/16 06:33 92 I&O- Last 24 Hours up to 6 AM 11/15/16 06:00 Intake Total 1230 ml Output Total 670 ml Balance 560 ml Laboratory Data 24H LABS Laboratory Tests 2 11/15/16 06:41: Blood Urea Nitrogen 25H, Creatinine 0.82, Sodium Level 139, Potassium Level 4.4 , Chloride Level 98, Carbon Dioxide Level 30, Calcium Level 8.8, Aspartate Amino Transf (AST/SGOT) 50H, Alanine Aminotransferase (ALT/SGPT) 103H, Alkaline Phosphatase 138H, Total Bilirubin 0.7, Total Protein 6.1L, Albumin 3.1L, Albumin /Globulin Ratio 1.03, Anion Gap 11, Glomerular Filtration Rate > 60.0 CBC/BMP Laboratory Tests 11/15/16 06:41 Calcium Level 8.8, Aspartate Amino Transf (AST/SGOT) 50 H, Alanine Aminotransferase (ALT/SGPT) 103 H, Alkaline Phosphatase 138 H, Total Bilirubin 0.7, Total Protein 6.1 L, Albumin 3.1 L, Red Blood Count 4.05, Mean Corpuscular Volume 95.9, Mean Corpuscular Hemoglobin 32.0, Mean Corpuscular Hemoglobin Concent 33.3, Red Cell Distribution Width 15.2 H Microbiology Microbiology 11/10/16 Urine Culture - Final, Complete Shanika De Souza Nov 15, 2016 14:57
[2016-11-15] MEDS: SIMVASTATIN 20 MG TAB PO SCH (21:02)
[2016-11-15] MEDS: DOCUSATE SODIUM 100 MG CAP PO SCH (21:02)
[2016-11-15 22:24] VITALS: BP 116/58
[2016-11-16] MEDS: OMEPRAZOLE 20 MG CAP PO SCH (06:03)
[2016-11-16] MEDS: VENLAFAXINE **XR** 75MG CAPSULE PO SCH (06:03)
[2016-11-16] MEDS: LEVOTHYROXINE 0.125 MG TAB (125 MCG) PO SCH (06:03)
[2016-11-16] MEDS: MAGIC MOUTHWASH SUSPENSION BTL SS SCH (06:04)
--- NOTE | 2016-11-16 06:11 | IPN ---
DATE OF VISIT: 11/15/2016 70-year-old female with history of bipolar disorder transferred from the medical floor after being treated for dehydration and urinary tract infection. The patient is very depressed. The patient has a lung CT compatible with malignancy but she does not want to have medical workup. MEDICATIONS: - Effexor XR 150 mg by mouth every morning - trazodone 50 mg by mouth nightly as needed for insomnia SUBJECTIVE: " I am doing okay." OBJECTIVE: The patient is somewhat more talkative today. She continues to be depressed. She ate part of breakfast and is drinking some fluid. She has very low energy. She has no interaction with the staff. She is mostly in bed. The patient denies side effects from the medication. MENTAL STATUS EXAMINATION: The patient is wearing a hospital gown. Very poor eye contact. Speech is very poor and answers in monosyllables. Mood is depressed. Affect is blunted. There is no evidence of delusions or hallucinations. The patient's insight and judgment is poor. ASSESSMENT: Bipolar disorder, depressed episode. PLAN: 1. Continue Effexor XR 150 mg by mouth every morning. 2. Continue trazodone as needed for insomnia. 3. Continue close observation.
[2016-11-16 06:22] VITALS: BP 106/64
[2016-11-16 06:44] LABS: MEAN CORPUSCULAR HEMOGLOBIN 31.5 pg (27.0-33.0); MEAN CORPUSCULAR HGB CONC 33.4 g/dl (32.0-36.5); MEAN CORPUSCULAR VOLUME 94.3 fl (80.0-96.0); RED CELL DISTRIBUTION WIDTH 15.4 % (11.5-14.5); WHITE BLOOD COUNT 16.6 K/mm3 (4.0-10.0)
[2016-11-16 07:09] LABS: ALBUMIN 3.4 GM/DL (3.2-5.2); ALBUMIN/GLOBULIN RATIO 1.06 (1.00-1.93); ALKALINE PHOSPHATASE 159 U/L (45-117); ALT/SGPT 124 U/L (12-78); ANION GAP 12 MEQ/L (8-16); AST/SGOT 54 U/L (15-37); BILIRUBIN,TOTAL 0.7 MG/DL (0.2-1.0); BLOOD UREA NITROGEN 30 MG/DL (7-18); CALCIUM LEVEL 8.8 MG/DL (8.8-10.2); CARBON DIOXIDE LEVEL 23 MEQ/L (21-32); CHLORIDE LEVEL 98 MEQ/L (98-107); GLOMERULAR FILTRATION RATE 42.9 (>39); GLUCOSE, FASTING 142 MG/DL (83-110); POTASSIUM SERUM 4.9 MEQ/L (3.5-5.1); SODIUM LEVEL 133 MEQ/L (136-145); TOTAL PROTEIN 6.6 GM/DL (6.4-8.2)
[2016-11-16] MEDS: CYANOCOBALAMIN 500 MCG TAB PO SCH (09:41)
[2016-11-16] MEDS: BISOPROLOL FUM 2.5 MG PER 1/2TAB PO SCH (09:41)
[2016-11-16] MEDS: predniSONE 10 MG TAB PO SCH (09:42)
[2016-11-16] MEDS: ASPIRIN 81 MG ENTERIC TAB PO SCH (09:42)
[2016-11-16] MEDS: ADVAIR DISKUS 250/50 INH PWD INH SCH ×2 (09:42→20:58)
[2016-11-16 18:00] VITALS: BP 114/57
[2016-11-16] MEDS: DOCUSATE SODIUM 100 MG CAP PO SCH (20:58)
[2016-11-17] MEDS: VENLAFAXINE **XR** 75MG CAPSULE PO SCH (06:30)
[2016-11-17] MEDS: LEVOTHYROXINE 0.125 MG TAB (125 MCG) PO SCH (06:30)
[2016-11-17] MEDS: OMEPRAZOLE 20 MG CAP PO SCH (06:30)
[2016-11-17 06:38] VITALS: BP 136/62
--- NOTE | 2016-11-17 08:40 | IPN ---
DATE: 11/16/2016 70-year-old female with a history of bipolar disorder, transferred from medical floor after being treated for dehydration and urinary tract infection (UTI). The patient was very depressed. The patient has a lung CT compatible with malignancy, but she does not want to have medical workup. MEDICATIONS: - Effexor XR 150 mg by mouth in the morning - trazodone 50 mg by mouth at night as needed for insomnia SUBJECTIVE: "I am okay." OBJECTIVE: The patient is more active today. The patient has been sitting in the lounge with other patients. She does not interact but appears to have more energy. The patient has eaten better. She is drinking fluid appropriately. The patient continues depressed, but today has made a positive change. MENTAL STATUS EXAMINATION: The patient is dressed in [facility]. The patient's eye contact is limited. Speech is poor, slow and monotone. Mood is depressed and anxious. Affect is restricted. No evidence of delusions or hallucinations. The patient is denying suicidal or homicidal ideation. Insight and judgment poor. ASSESSMENT: 1. Bipolar disorder, depressed episode. PLAN: 1. Continue Effexor XR 150 mg by mouth in the morning. 2. Continue trazodone as needed for insomnia. 3. Continue close observation.
[2016-11-17] MEDS: ADVAIR DISKUS 250/50 INH PWD INH SCH ×2 (09:04→21:21)
[2016-11-17] MEDS: predniSONE 10 MG TAB PO SCH (09:04)
[2016-11-17] MEDS: CYANOCOBALAMIN 500 MCG TAB PO SCH (09:04)
[2016-11-17] MEDS: BISOPROLOL FUM 2.5 MG PER 1/2TAB PO SCH (09:05)
[2016-11-17] MEDS: ASPIRIN 81 MG ENTERIC TAB PO SCH (09:05)
[2016-11-17 10:06] LABS: MEAN CORPUSCULAR HEMOGLOBIN 31.3 pg (27.0-33.0); MEAN CORPUSCULAR HGB CONC 33.8 g/dl (32.0-36.5); MEAN CORPUSCULAR VOLUME 92.6 fl (80.0-96.0); RED CELL DISTRIBUTION WIDTH 15.2 % (11.5-14.5); WHITE BLOOD COUNT 12.4 K/mm3 (4.0-10.0)
[2016-11-17 10:17] LABS: ALBUMIN 3.1 GM/DL (3.2-5.2); ALBUMIN/GLOBULIN RATIO 1.07 (1.00-1.93); BILIRUBIN,TOTAL 0.6 MG/DL (0.2-1.0); CALCIUM LEVEL 8.9 MG/DL (8.8-10.2); CREATININE FOR GFR 1.07 MG/DL (0.55-1.02); GLOMERULAR FILTRATION RATE 53.7 (>39); POTASSIUM SERUM 4.1 MEQ/L (3.5-5.1)
--- NOTE | 2016-11-17 12:02 | IPNPDOC ---
Subjective Date Seen The patient was seen on 11/17/16. Subjective Chief Complaint/HPI The patient is a 70-year-old female admitted with a reason for visit of Unspecified Depressive Disorder. Events since last encounter Reevaluating patient in regards to her labs. Patient refused labs this morning, however they were subsequently drawn when the lab returned. Patient was sitting on the side of the bed having returned from the bathroom. She did not make any eye contact and refused to answer questions. She seemed to be agitated and angry. She stated she wanted to lie back down. As per her nursing staff she did eat some of her breakfast and drank some fluids. Objective Physical Examination General Exam: Positive: Alert ENT Exam: Positive: Atraumatic Chest Exam: Positive: Diminished (limited cooperation with exam) Heart Exam: Positive: Normal S1, Normal S2, Rate Normal, Regular Rhythm, Negative: Murmurs, Rubs Abdomen Exam: Positive: Normal bowel sounds, Soft, Negative: Hepatospenomegaly Assessment /Plan Problems (1) Decreased oral intake Status: Acute Problem Text: * Patient is fluctuating with oral intake * Continue CBC/CMP daily * Continue to Encourage by mouth intake- Monitor I/O * UA unremarkable/UC negative 11/10. Repeated 11/16 however sample is pending. * CT A&P 11/04/16 No acute abn. * Lasix/KCl held 11/16 related to elevated serum creatinine. Also hold 11/17. * Continue to closely monitor (2) Pleural effusion Status: Chronic Problem Text: * CTA chest indicated moderate pleural effusion and right middle lobe consolidation. * Patient did not wish to proceed with thoracentesis. * Patient and daughter did not wish to proceed with any invasive procedures. * Patient was placed on supplemental oxygen 2 L nasal cannula. * CXR 11/09/16 decreased right mid and lower lung infiltrates and resolution of right pleural effusion. * HELD po lasix/KCL 11/09/16 related to elevated serum creatinine and poor oral intake. * Closely monitor. * Lasix as above. (3) HLD (hyperlipidemia) Status: Chronic Problem Text: * Statin on hold related to elevated liver function studies. (4) Hypothyroid Status: Chronic Problem Text: * Continue supplement. (5) HTN (hypertension) Status: Chronic Problem Text: * Zebeta * Lasix as above (6) COPD (chronic obstructive pulmonary disease) Status: Chronic Problem Text: * Advair, prednisone. (7) Lung cancer Status: Chronic Problem Text: * Pt with Possible Lung malignancy, but no clear diagnosis. 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 Pt did not want any invasive workup, so the mass was not biopsied to establish definitive diagnosis. * Patient has declined any invasive procedures. * CT brain secondary to AMS 10/21/16 NAD. * discussed with Dr Valente today, related to con't fluctuating MS- proceed with MRI brain- requested. (8) GERD (gastroesophageal reflux disease) Status: Chronic Problem Text: * PPI. (9) Medication refused Status: Chronic Problem Text: * Improved compliance with medications. (10) Leukocytosis Status: Acute Problem Text: * Patient is afebrile. * Chest x-ray as noted above * UA unremarkable/urine culture negative 11/10. * GI panel requested 11/14. Patient with no further loose stools. * Continue with daily labs. (11) Elevated LFTs Status: Acute Problem Text: * Continue with daily labs- trending downward * right upper quadrant ultrasound -cholelithiasis * hepatitis profile negative * Held statin as this may be contributing to elevated LFTs. * Continue to monitor with daily labs. Plan/VTE VTE Prophylaxis Ordered?: Yes (TEDS/ambulatory) [facility] Vital Signs/I&O Vital Signs Date Time Temp Pulse Resp B/P Pulse Ox O2 Delivery O2 Flow Rate FiO2 11/17/16 10:30 Nasal Cannula 11/17/16 09:05 77 136/62 11/17/16 06:38 97.1 16 98 11/15/16 06:30 2.0 I&O- Last 24 Hours up to 6 AM 11/17/16 06:00 Intake Total 660 ml Output Total 200 ml Balance 460 ml Laboratory Data 24H LABS Laboratory Tests 2 11/17/16 09:46: Blood Urea Nitrogen 28H, Creatinine 1.07H, Sodium Level 134L, Potassium Level 4.1, Chloride Level 96L, Carbon Dioxide Level 27, Calcium Level 8.9, Aspartate Amino Transf (AST/SGOT) 50H, Alanine Aminotransferase (ALT/SGPT) 103H, Alkaline Phosphatase 135H, Total Bilirubin 0.6, Total Protein 6.0L, Albumin 3.1L, Albumin /Globulin Ratio 1.07, Anion Gap 11, Glomerular Filtration Rate 53.7 CBC/BMP Laboratory Tests 11/17/16 09:46 Calcium Level 8.9, Aspartate Amino Transf (AST/SGOT) 50 H, Alanine Aminotransferase (ALT/SGPT) 103 H, Alkaline Phosphatase 135 H, Total Bilirubin 0.6, Total Protein 6.0 L, Albumin 3.1 L, Red Blood Count 3.94 L, Mean Corpuscular Volume 92.6, Mean Corpuscular Hemoglobin 31.3, Mean Corpuscular Hemoglobin Concent 33.8, Red Cell Distribution Width 15.2 H Microbiology Microbiology 11/10/16 Urine Culture - Final, Complete Shanika De Souza Nov 17, 2016 12:02
[2016-11-17 18:00] VITALS: BP 113/55
--- NOTE | 2016-11-17 20:06 | IPN ---
DATE: 11/17/2016 HISTORY: A 70-year-old female with history of bipolar disorder, transferred from the medical floor after being treated for dehydration and urinary tract infection (UTI). The patient was very depressed. The patient has a lung CT compatible with malignancy, but she does not want to have medical workup. MEDICATIONS: - Effexor XR 150 mg by mouth every morning - trazodone 50 mg by mouth at bedtime as needed for insomnia SUBJECTIVE: The patient is selectively mute today. OBJECTIVE: The patient was reported to be angry early in the morning. The patient is lying in bed. The patient was not cooperative with lab staff to draw blood for laboratories. However, later on, she was more cooperative. She was only answering questions in monosyllables. The patient stated that was doing well and she wants to go home tomorrow when her daughter comes and picks her up. There is no evidence of psychotic symptoms, no auditory or visual hallucinations or delusions. MENTAL STATUS EXAMINATION: The patient is dressed in hospital gown. The patient has poor eye contact. Today speech is very poor. Earlier in the morning was selectively mute. Appeared to be angry. Mood is depressed and anxious. Affect is restricted. No evidence of delusions or hallucinations. The patient is denying suicidal or homicidal ideations. Insight and judgment are poor. ASSESSMENT: Bipolar disorder, depressed episode. PLAN: 1. Continue Effexor XR 150 mg by mouth every morning. 2. Continue trazodone 50 mg by mouth at bedtime as needed for insomnia. 3. Plan is to be discharged tomorrow to live with her daughter and family.
[2016-11-17] MEDS: DOCUSATE SODIUM 100 MG CAP PO SCH (21:21)
[2016-11-18] MEDS: OMEPRAZOLE 20 MG CAP PO SCH (06:10)
[2016-11-18] MEDS: VENLAFAXINE **XR** 75MG CAPSULE PO SCH (06:10)
[2016-11-18] MEDS: LEVOTHYROXINE 0.125 MG TAB (125 MCG) PO SCH (06:10)
[2016-11-18 06:50] VITALS: BP 101/49
[2016-11-18 07:09] LABS: MEAN CORPUSCULAR HEMOGLOBIN 31.8 pg (27.0-33.0); MEAN CORPUSCULAR HGB CONC 33.6 g/dl (32.0-36.5); MEAN CORPUSCULAR VOLUME 94.8 fl (80.0-96.0); RED CELL DISTRIBUTION WIDTH 15.5 % (11.5-14.5); WHITE BLOOD COUNT 10.3 K/mm3 (4.0-10.0)
[2016-11-18 07:27] LABS: ALBUMIN 2.9 GM/DL (3.2-5.2); ALBUMIN/GLOBULIN RATIO 1.12 (1.00-1.93); ALKALINE PHOSPHATASE 122 U/L (45-117); ALT/SGPT 103 U/L (12-78); ANION GAP 10 MEQ/L (8-16); AST/SGOT 50 U/L (15-37); BILIRUBIN,TOTAL 0.4 MG/DL (0.2-1.0); BLOOD UREA NITROGEN 24 MG/DL (7-18); CALCIUM LEVEL 8.2 MG/DL (8.8-10.2); CARBON DIOXIDE LEVEL 27 MEQ/L (21-32); CHLORIDE LEVEL 104 MEQ/L (98-107); CREATININE FOR GFR 0.75 MG/DL (0.55-1.02); GLOMERULAR FILTRATION RATE > 60.0 (>39); GLUCOSE, FASTING 77 MG/DL (83-110); POTASSIUM SERUM 3.8 MEQ/L (3.5-5.1); SODIUM LEVEL 141 MEQ/L (136-145); TOTAL PROTEIN 5.5 GM/DL (6.4-8.2)
[2016-11-18] MEDS ORDERED: BISO5TAB5 PO (08:59)
[2016-11-18] MEDS: predniSONE 10 MG TAB PO SCH (09:10)
[2016-11-18] MEDS: CYANOCOBALAMIN 500 MCG TAB PO SCH (09:10)
[2016-11-18] MEDS: ASPIRIN 81 MG ENTERIC TAB PO SCH (09:10)
[2016-11-18] MEDS: ADVAIR DISKUS 250/50 INH PWD INH SCH (09:11)
[2016-11-18 09:15] VITALS: BP 140/61
[2016-11-18] MEDS: BISOPROLOL FUM 2.5 MG PER 1/2TAB PO SCH (09:15)
[2016-11-18] MEDS ORDERED: TRAZO50TA PO ×2 (10:31→15:56)
[2016-11-18] MEDS ORDERED: VENL75CA PO ×2 (10:31→15:56)
[2016-11-18] MEDS ORDERED: SERO1TAB3 PO ×2 (10:31→15:56)
--- NOTE | 2016-11-19 19:57 | MHDS ---
DATE OF ADMISSION: 10/31/2016 DATE OF DISCHARGE: 11/18/2016 HISTORY OF PRESENT ILLNESS: A 70-year-old female with a long history of bipolar disorder, admitted from the medical floor where she was stabilized from dehydration and urinary tract infection (UTI). The patient has been feeling depressed "sick all over" with very low energy, poor self esteem, no appetite, feeling helpless and hopeless. The patient denied suicidal ideation during the interview, but admits that in the past has had some. The patient stated that she has no wishes to live. The patient has been refusing her medications for several days. It is reported that she has been feeling very depressed for the last four months. She has a lung CT with a lesion that is compatible with a malignancy, but she refused to have the medical workup. During the interview, there is no evidence of auditory or visual hallucinations or delusions. The patient has been treated in the past with Zoloft, Pamelor, Seroquel, Klonopin, trazodone, but as above, has not been compliant lately. As far as medical history, has been diagnosed of chronic obstructive pulmonary disease (COPD), hypertension, hypothyroidism, gastroesophageal reflux disease (GERD), hyperlipidemia, impaired hearing, and also noted in October 2015, a chest CT indicates suspicion of lung malignancy. LABORATORIES AT ADMISSION: At the moment of admission, labs were not drawn since she was medically worked up at the medical floor; however, she has had a followup of CBC and CMP. Her CMP has been showing fluctuations on BUN and creatinine, depending on the fluid intake. Her BUN has fluctuated between 23 and 30, and creatinine has been fluctuating from normal to 1.3 on 11/16. The patient also was showing an elevation of AST and ALT. Alkaline phosphatase has been also elevated. HOSPITAL COURSE: The patient was refusing to take medications. She also was refusing to eat and her fluid intake was minimal. She had to be closely monitored. She has been followed closely by the medical team. The patient was started on Effexor 37.5 and was increased up to 150 mg by mouth every morning. She started to take the medication consistently a week after readmission. With the medication, the patient has been improving slowly from her depression. A meeting with her daughter was held two times. During the first time, the general treatment was discussed including medical issues. She is under the opinion that her mother and herself do not want to have workup for this suspected malignancy in the lung. She does not also want her mother to suffer any type of medical procedure that can be aggressive. For example, we discussed that if she stops eating and drinking, maybe she needs to have tube placed to help with food intake and fluid, but she said that she preferred not to do so, and that she is following the wishes of her mother. The daughter also stated that her mother prefers not to be treated, since both her parents were diagnosed of cancer and they both from it without any benefit from the treatment, so she does not want to have medical procedures. During this meeting, we also discussed psychiatric treatment. She said that she has been diagnosed of bipolar disorder and at times she has been manic. I told her that at this point, she was very depressed and she was only maintained on antidepressant. She was on Effexor 150 mg and trazodone 50 mg at bedtime. The daughter stated that they are discussing between the family how to handle this situation, and she would like to have enough support from the family in a way that they can take her mother home and take care of her at home. Yani was living in an assisting living facility, but they prefer that Yani return home with them. As far as the hospital course, as soon as the patient started taking the medication consistently, her depression improved, although sridhar slowly and with significant fluctuations. Some days she will refuse to speak and will remain selectively mute. By the end of the hospitalization, the patient is able to eat and drink better, but needed assistance. The patient was able to go to the [facility] and stayed a few hours there, although she was not interacting with other patients. She has a severe hearing loss and it appears that her hearing aids are not working properly, so she does not interact well because of her hearing problem. At the moment of discharge, the patient is denying any suicidal ideation and she would like to be discharged with her daughter. She is very supportive. There is no evidence of psychotic symptoms, no auditory or visual hallucinations or delusions. All her medications have been discontinued by the medical team since the patient's alkaline phosphatase was elevated and also her liver function tests. After her medical medications were discontinued, she appeared to have an improvement on her mental status, so it is questionable how much the combination of these medications were not helpful to this patient as far as her mental status and depression. MENTAL STATUS EXAMINATION AT DISCHARGE: The patient is dressed in hospital gown. The patient is cooperative. Speech is soft, poor. Has fair eye contact. Mood is depressed and anxious, but improved from admission. Affect is restricted. The patient is oriented to time, place, person and situation. Memory, attention and concentration are impaired. The patient does not have auditory or visual hallucinations. The patient does not have paranoid, persecutory, somatic, grandiose or temple delusions. The patient is denying suicidal or homicidal ideations. Judgment and insight are limited. MEDICATIONS AT DISCHARGE: - Effexor XR 150 mg by mouth every morning - trazodone 50 mg by mouth at bedtime I instructed the daughter that a prescription for Seroquel 25 mg by mouth twice a day will be available in the pharmacy. She was treated with this medication for her bipolar illness in the past, so she has been instructed as to how to prescribe this medication in case that her symptoms switch towards more hypomania or lemuel before her appointment with the outpatient psychiatrist becomes available. The daughter is a registered nurse and she manifested understanding of how to use this medication. DISCHARGE DIAGNOSES: AXIS I: Bipolar disorder, depressed episode. AXIS II: Deferred. AXIS III: Chronic obstructive pulmonary disease, hypertension, hypothyroidism, gastroesophageal reflux disease, hyperlipidemia, impaired hearing and suspected malignancy of the lungs. INSTRUCTIONS TO THE PATIENT: The patient is to continue taking her medications as prescribed and followup appointments. She will be living with her daughter and family, who are very supportive and caring for the patient. She is going to be monitored 24/ at the moment of discharge. Again, the patient and the family do not want any medical workup for her lung malignancy.
== END 2016-11-18 15:00 | disposition home or self-care (01) | DRG 885 ==
LOC: M PSY 15:45
PROVIDERS: ADMIT Psychiatry & Neurology Psychiatry; ATTEND Psychiatry & Neurology Psychiatry
DX: F31.9 Bipolar disorder, unspecified (principal); C34.90 Malignant neoplasm of unspecified part of unspecified bronchus or lung; J44.9 Chronic obstructive pulmonary disease, unspecified; E03.9 Hypothyroidism, unspecified; K21.9 Gastro-esophageal reflux disease without esophagitis; E78.5 Hyperlipidemia, unspecified; F41.9 Anxiety disorder, unspecified; M19.90 Unspecified osteoarthritis, unspecified site; Z79.899 Other long term (current) drug therapy; Z96.652 Presence of left artificial knee joint; Z96.651 Presence of right artificial knee joint; Z79.82 Long term (current) use of aspirin; I10 Essential (primary) hypertension